=== PATIENT | female | born 1940 | race Caucasian/White ===

== ENCOUNTER → 2016-09-06 | Outpatient (CLI) | payer MEDICARE, OTHER ==
[~2016-09-06] MED LIST: ALBUTEROL; ALBUTEROL2.5 MG/0.5 NEB; AMOXICILLIN500 M1 PO; AMOXICILLIN500 M2 PO; ANTIVERT25 MG PO; ASPIRIN81 M1 PO; B COMPLEX1 CAP PO; BENTYL10 MG PO; CIPRO500 MG PO; COZAAR50 MG PO; ECOTRIN325 MG PO; EXJADE500 MG PO; FLAGYL250 MG PO; GLUCOPHAGE500 MG PO; HUMALOG100 U/ML SC; IMDUR SA60 M1 PO; LEVOFLOXACIN500 MG PO; LIBRAX 5 MG-2.51 CA1 PO; MACROBID100 M1 PO; MAGNESIUM500 MG PO; METFORMIN500 MG PO; METOPROLOL TART50 M1 PO; METOPROLOL25 MG PO; MINITRAN0.4 MG/HR TD; MYCOSTATIN100000 U/M PO; NASONEX0.05 MG/AC NS; NEXIUM20 M1 PO; NITRO TRANS0.2 MG/HR TD; NITRO-BID21 T; NITROGLYCERIN; NITROSTAT0.4 MG SL; NORVASC5 MG PO; PHENERGAN25 M1 PO; PLAVIX75 M1 PO; PLAVIX75 MG PO; POLYSPORIN TP; PREDNISONE2.5 MG PO; PREDNISONE5 MG PO; PRILOSEC20 MG PO; PROAIR HFA0.09 MG/AC INH; PYRIDIUM100 MG PO; SANTYL250 U/GM T; SIMVASTATIN20 MG PO; SYNTHROID,LEV112 MCG PO; TOBRADEX 0.1%-0.5 ML OPH; TOPROL XL25 MG PO; TRAMADOL50 MG PO; TRANSDERM N 0.4 MG/HR TD; TRIAMTERENE/HCT1 TAB PO; ULTRAM50 MG PO; VITAMIN D32000 I1 PO; VITAMIN D5000 IU PO; ZANAFLEX4 M1 PO; ZOCOR20 MG PO
[2016-09-06 09:37] LABS: BASO % 0.7 % (0.0-1.0); EOS # 0.1 10*3/uL (0.0-0.4); EOS % 2.8 % (1.0-4.0); HEMATOCRIT 26.7 % (37.0-47.0); HEMOGLOBIN 8.9 g/dl (12.0-16.0); IG # 0.1 10*3/uL (0.0-0.1); LYMPH # 0.6 10*3/uL (1.3-4.4); LYMPH % 14.1 % (27.0-41.0); MEAN CELL VOLUME 89.3 fl (81.0-99.0); MEAN CORPUSCULAR HGB 29.8 pg (27.0-31.0); MEAN CORPUSCULAR HGB CONC 33.3 g/dl (33.0-37.0); MEAN PLATELET VOLUME 8.7 fl (9.6-12.3); MONO # 0.3 10*3/uL (0.1-1.0); MONO % 6.3 % (3.0-9.0); NEUT # 3.2 10*3/uL (2.3-7.9); NEUT % 74.9 % (47.0-73.0); NUCLEATED RED BLOOD CELL 0.5 % (0.0-0.0); PLATELET COUNT AUTOMATED 138 10*3/uL (130-400); RED BLOOD COUNT 2.99 10*6/uL (4.10-5.10); RED CELL DISTRI WIDTH 16.5 % (0-14.5); WHITE BLOOD COUNT 4.3 10*3/uL (4.8-10.8)
[2016-09-06 09:51] LABS: ALBUMIN 3.6 gm/dl (3.1-4.5); BILIRUBIN, TOTAL 0.8 mg/dl (0.2-1.0); POTASSIUM 4.4 mmol/L (3.5-5.1); TOTAL PROTEIN 6.2 gm/dL (6.4-8.2)
[2016-09-07 15:21] LABS: VITAMIN D, 25-HYDROXY 84.5 ng/mL (30-100)
[2016-09-07 15:22] LABS: FOLIC ACID 15.95 ng/mL (>5.38)
== END | disposition home or self-care (01) ==
LOC: LAB 02:47 → MEDIPORT 02:47
PROVIDERS: Internal Medicine
DX: C50.911 Malignant neoplasm of unspecified site of right female breast (principal); E11.9 Type 2 diabetes mellitus without complications; E78.2 Mixed hyperlipidemia; E03.9 Hypothyroidism, unspecified; D64.9 Anemia, unspecified; E55.9 Vitamin D deficiency, unspecified

== ENCOUNTER → 2016-09-28 | Outpatient (CLI) | payer MEDICARE, OTHER ==
[2016-09-28 12:54] LABS: HEMATOCRIT 31.3 % (37.0-47.0); HEMOGLOBIN 10.5 g/dl (12.0-16.0)
== END | disposition home or self-care (01) ==
LOC: LAB 12:19
PROVIDERS: Internal Medicine
DX: D64.9 Anemia, unspecified (principal)

== ENCOUNTER → 2016-11-17 | Outpatient (CLI) | payer MEDICARE, OTHER | END | disposition home or self-care (01) | LOC: MRI 02:14 | DX: I10 Essential (primary) hypertension (principal); I63.49 Cerebral infarction due to embolism of other cerebral artery; R51 Headache ==

== ENCOUNTER → 2016-12-06 | Outpatient (CLI) | payer MEDICARE, OTHER ==
[2016-12-06 14:35] LABS: HEMATOCRIT 28.1 % (37.0-47.0); HEMOGLOBIN 9.3 g/dl (12.0-16.0)
== END | disposition home or self-care (01) ==
LOC: LAB 13:35
PROVIDERS: Internal Medicine
DX: D64.9 Anemia, unspecified (principal)

== ENCOUNTER → 2016-12-13 | Outpatient (CLI) | payer MEDICARE, OTHER ==
[2016-12-13 11:07] LABS: HEMATOCRIT 31.7 % (37.0-47.0); HEMOGLOBIN 10.5 g/dl (12.0-16.0)
== END | disposition home or self-care (01) ==
LOC: LAB 10:52
PROVIDERS: Internal Medicine
DX: D50.0 Iron deficiency anemia secondary to blood loss (chronic) (principal)

== ENCOUNTER → 2017-01-11 | Outpatient (CLI) | payer MEDICARE, OTHER ==
[2017-01-11 10:15] LABS: HEMATOCRIT 28.9 % (37.0-47.0); HEMOGLOBIN 9.8 g/dl (12.0-16.0)
== END | disposition home or self-care (01) ==
LOC: MEDIPORT 00:58
PROVIDERS: Internal Medicine
DX: Z45.2 Encounter for adjustment and management of vascular access device (principal)

== ENCOUNTER → 2017-03-03 | Outpatient (CLI) | payer MEDICARE, OTHER ==
[2017-03-03 09:00] LABS: HEMOGLOBIN 8.6 g/dl (12.0-16.0)
[2017-03-03 09:07] LABS: POTASSIUM 4.5 mmol/L (3.5-5.1)
== END | disposition home or self-care (01) ==
LOC: MEDIPORT 03-02 10:45 → LAB 08:08 → MEDIPORT 08:30
PROVIDERS: Internal Medicine
DX: N18.3 Chronic kidney disease, stage 3 (moderate) (principal); D63.1 Anemia in chronic kidney disease

== ENCOUNTER → 2017-03-10 | Outpatient (CLI) | payer MEDICARE, OTHER ==
[2017-03-10 11:00] LABS: HEMATOCRIT 25.8 % (37.0-47.0); HEMOGLOBIN 8.9 g/dl (12.0-16.0)
== END | disposition home or self-care (01) ==
LOC: LAB 10:23
PROVIDERS: Internal Medicine
DX: L93.0 Discoid lupus erythematosus (principal); D50.0 Iron deficiency anemia secondary to blood loss (chronic)

== ENCOUNTER 2017-03-30 05:07 | Inpatient (IN) | payer MEDICARE, OTHER ==
[~2017-03-30] VITALS: Ht 154.9 cm; Wt 75.3 kg
[2017-03-30] VITALS (7 sets, daily range): BP systolic 125–171; BP diastolic 42–99
--- NOTE | ~2017-03-30 | PR ---
[place], [place] PROGRESS NOTE NAME: [facility] [id number] UNIT #: [id number] ROOM: 504 DOCTOR: ADEEL BATISTA MD,JORGITO BIRTHDATE: [birth year] DOS: 04/10/2017 SUBJECTIVE: The patient has been noted comfortable at this time without any acute distress. Denies symptoms of chest pain, coughing, sputum expectoration this morning. OBJECTIVE: VITAL SIGNS: Normal temperature, respiratory rate 18, heart rate 56, blood pressure 156/60. Intake 1640, output 2600 mL. The pulse oxygen saturation on room air 98% saturation recorded. HEENT: Examination shows head was atraumatic. Eyes nonicterus. NECK: Supple. CARDIOVASCULAR: S1, S2 audible. LUNGS: Noted without any wheezing or crackles. ABDOMEN: Soft, nontender. IMPRESSION: ____ bacteremia, removal of the MediPort, bacteremia, Staph epidermidis improved. The patient has been given vancomycin since admission 03/30/2017. PLAN OF TREATMENT: The patient could be discharged home at this time after completion of the vancomycin today. She was advised to be followed by her medical oncologist for assessment of pulmonary nodules to have further assessment done if necessary. Supportive care. Other plan of management and care. Usual treatments. JORGITO DENIS MD CM:PNTRANS 1004 1210 JORGITO BATISTA MD 04/10/17 1210 interface
--- NOTE | ~2017-03-30 | PR ---
[place], [place] PROGRESS NOTE NAME: BRANDI LAND UNIT #: [id number] ROOM: 504 DOCTOR: JORGITO WYMAN MD BIRTHDATE: [birth year] DOS: 04/08/2017 PULMONARY FOLLOWUP SUBJECTIVE: She has been noted without any acute distress. At this time the Mediport was successfully removed yesterday from the right chest. The patient denies symptoms of hemoptysis. There was no coughing, wheezing or hemoptysis. OBJECTIVE: VITAL SIGNS: Normal temperature, respiratory rate 20, heart rate 67, blood pressure 153/88. The pulse oxygen saturation was noted on room air 97% saturation. HEENT: Showed no new change. NECK: Supple. CARDIOVASCULAR: S1, S2 audible. LUNGS: Noted without any wheeze or crackles at the present time. ABDOMEN: Soft, nontender. LABORATORY DATA: BMP today was noted as normal. CBC this morning was noted with WBC count 3.7, hemoglobin 9.7, hematocrit 28.9, platelet count 114,000. IMPRESSION: 1. Pancytopenia. The patient noted with resolution of bacteremia Staph epidermidis, status post removal of the MediPort, most likely the source of bacteremia. 2. Resolving bilateral pneumonic infiltration and tree-in-bud appearance with other persistent nodular opacity. The lungs need to be assessed further to rule out any malignant process. 3. Pancytopenia, etiology unclear. PLAN OF MANAGEMENT: Continuation of current therapy at this time. No other changes in the treatment need to be done. Other treatment plan as previously. Usual care. [place], [place] PROGRESS NOTE NAME: BRANDI LAND UNIT #: [id number] ROOM: 504 DOCTOR: JORGITO WYMAN MD BIRTHDATE: [birth year] JORGITO DENIS MD CM:PNTRANS 1424 [id number] JORGITO BATISTA MD 04/10/17 0412 interface
--- NOTE | ~2017-03-30 | O ---
[place], [place] OPERATIVE NOTE NAME: BRANDI LAND UNIT #: [id number] ROOM: 504 DOCTOR: HANS BALTAZAR MD BIRTHDATE: [birth year] DOS: 04/07/2017 PREOPERATIVE DIAGNOSIS: Infected MediPort. POSTOPERATIVE DIAGNOSIS: Infected MediPort. PROCEDURE: Removal of inspected MediPort. SURGEON: Hans Baltazar MD CHOPPER FEEDER: MS3. ANESTHESIA: MAC with local. INDICATIONS: This is a 76-year-old lady who has a MediPort and also has positive blood cultures and removal of the left chest MediPort was requested. It was decided to take the patient to the operating room for the above-mentioned procedure. The procedure and its complications were explained to the patient in detail preoperatively. Complications that were discussed included but were not limited to bleeding, infection, hematoma/seroma/abscess formation, and prolonged pain. She agreed to proceed. DESCRIPTION OF PROCEDURE: After identifying the patient, the patient was brought to the operating suite and laid in the supine position. After time-out procedure was called, IV sedation was administered and the parts were then painted and draped in the usual sterile fashion. An incision across the area of the left chest MediPort was marked and local anesthesia (1% plain lidocaine) was injected. The incision was made and it was then deepened in layers. The MediPort was identified and dissected away from the surrounding subcutaneous tissue. The 2 stay sutures were cut on either side and the port was then removed and sent for histopathological diagnosis. Hemostasis was achieved. Thereafter, the subcutaneous tissue was approximated with the help of 3-0 Vicryl in a running fashion and the skin edges were approximated with the help of 4-0 Vicryl in a subcuticular running fashion. Dressing was placed. The patient tolerated the procedure well. There were no complications. Dr. Hans Baltazar, the attending surgeon was present throughout the operative case. [place], [place] OPERATIVE NOTE NAME: BRANDI LAND UNIT #: [id number] ROOM: 504 DOCTOR: HANS BALTAZAR MD BIRTHDATE: [birth year] Hans Baltazar MD CM:OPRECORD:OPERATIVE NOTE 1040 1142 HANS BALTAZAR MD 04/07/17 1142 interface
--- NOTE | ~2017-03-30 | PR ---
[place], [place] PROGRESS NOTE NAME: BRANDI LAND UNIT #: [id number] ROOM: 504 DOCTOR: JORGITO WYMAN MD BIRTHDATE: [birth year] DOS: 04/06/2017 SUBJECTIVE: The patient was seen and examined on 04/06/2017. She has been comfortable, resting. The shortness of breath and cough continued to improve progressively. She was continued on amoxicillin as well as intravenous vancomycin. Denies symptoms of chest pain or any abdominal pain. OBJECTIVE: VITAL SIGNS: For the patient which were recorded for the patient shows the blood pressure were noted as normal, respiratory rate 18, heart rate 65, blood pressure of ____ 58/64. HEENT: Showed no acute change. NECK: Supple. CARDIOVASCULAR: S1, S2 audible. LUNGS: The patient was noted without any wheezing or crackles at the present time. ABDOMEN: Soft and nontender. LABORATORY DATA: The cultures of the blood on shows no bacterial growth. The chest x-ray that was done this morning was reviewed shows reduction and improvement of the patchy infiltration of the lungs was noted. IMPRESSION: 1. Resolving acute pneumonia. 2. History of pulmonary nodule. 3. Possibility infection MediPort of the patient with bacteremia. 4. 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 PLAN OF TREATMENT: Continue the patient's current therapy, plan of management at this time without any changes. Usual care, other supportive plan of management and treatment. Removal of the MediPort was suggested. Other supportive therapy, plan of management. Further treatment changes will be done based on the progression of the illness. [place], [place] PROGRESS NOTE NAME: BRANDI LAND UNIT #: [id number] ROOM: 504 DOCTOR: JORGITO WYMAN MD BIRTHDATE: [birth year] JORGITO DENIS MD CM:PNTRANS 1341 1408 JORGITO BATISTA MD 04/06/17 1408 interface
--- NOTE | ~2017-03-30 | PR ---
[place], [place] PROGRESS NOTE NAME: BRANDI LAND UNIT #: [id number] ROOM: 504 DOCTOR: JORGITO WYMAN MD BIRTHDATE: [birth year] DOS: 04/03/2017 SUBJECTIVE: She was seen and examined on 04/03/2017. She has been comfortably resting on the bed at this time without any distress. She has been noted with coughing at this time, but there was no sputum expectoration described. Denies symptoms of chest pain or any abdominal pain. OBJECTIVE: VITAL SIGNS: For the patient which has been recorded showed the temperature noted as normal, respiratory rate 18, heart rate 65, blood pressure 114/88. Pulse oxygen saturation on room air was 98% saturation. HEENT: Showed no acute change. CARDIOVASCULAR: S1, S2 audible. LUNGS: Scattered crackles noted bilaterally, there was no wheezing. ABDOMEN: Soft, nontender. LABORATORY DATA: Blood cultures from 03/30/2017, still final identification and sensitivity was pending for Gram-positive cocci in clusters. The final cultures of the patient were on 04/01/2017, one out of four bottles was noted to be positive. The BMP of the patient this morning was essentially noted as normal. CBC this morning, WBC count 3.9, hemoglobin 10.4, and hematocrit 30.1 with platelet count of 108,000. IMPRESSION: 1. The patient has been currently noted with persistent pancytopenia. 2. Hemoptysis, which seemed to be resolved. 3. Acute bacterial pneumonia suspected for the patient with bilateral pulmonary nodules, possibility of metastatic cancer for the patient can be completely excluded. 4. History of past laryngeal cancer. 5. History of metastatic breast cancer as well. PLAN OF MANAGEMENT: I would not be making any changes in treatment today. Continue bronchodilators, oxygen supplementation and sputum culture if expectoration for the patient will be done. Usual care with plan of therapy and care. Further treatment changes will be done based on progression of the illness. [place], [place] PROGRESS NOTE NAME: BRANDI LAND UNIT #: [id number] ROOM: 504 DOCTOR: JORGITO WYMAN MD BIRTHDATE: [birth year] JORGITO DENIS MD CM:MARYSE 1020 1043 JORGITO BATISTA MD 04/03/17 1044 interface
--- NOTE | ~2017-03-30 | PR ---
[place], [place] PROGRESS NOTE NAME: BRANDI LAND UNIT #: [id number] ROOM: 504 DOCTOR: ADEEL BATISTA MD,JORGITO BIRTHDATE: [birth year] DOS: 04/04/2017 PULMONARY PROGRESS NOTE SUBJECTIVE: She has been noted with sputum expectoration, moderate amount, yellowish in color at this time easily. Denies symptoms of chest pain or any abdominal pain. Denies symptoms of hemoptysis. OBJECTIVE: VITAL SIGNS: For the patient which has been recorded showed normal temperature, respiratory rate 20, heart rate 67, blood pressure 90/74. Pulse oxygen saturation on 1 liter nasal cannula 97% saturation. HEENT: Showed no acute change. NECK: Supple. CARDIOVASCULAR: S1, S2 audible. LUNGS: The patient noted with moderate decreased breath sounds with scattered crackles still present in the lungs. There was no wheezing. ABDOMEN: Soft, nontender. LABORATORY DATA: Culture of the sputum preliminary showing normal helen. The Gram stain of yesterday, many white blood cells with moderate epithelial cells, moderate gram-positive cocci in pairs and clusters with few budding yeast. BMP was noted as normal today. Urine for Legionella antigen and strep pneumo antigen were both noted negative. IMPRESSION: 1. The patient with bilateral nodular opacity with patchy infiltration with history of breast cancer in the past as well as laryngeal cancer, increase in the nodule for the patient patchy infiltration was noted since 10/1999. CT scan of the chest with a differential diagnosis of recurrent cancer, possible metastatic from either of the known previous 3 malignancies, the patient would be considered. The patient has been noted to treat melanoma, treatment for the right breast cancer as well as the laryngeal cancer in the past. 2. Acute tracheobronchitis as well. PLAN OF TREATMENT: The current CT scan findings were addressed with the patient in detail. She was advised to be seen by usual medical oncologist in [facility]. The patient already has established followup appointment in May 2017 that should be kept and the findings to be discussed with the medical oncologist for further advice. In the meantime, continue to treatment the patient actively. Monitor culture results. Usual care. Supportive therapy, plan of management and other treatments as well. [place], [place] PROGRESS NOTE NAME: BRANDI LAND UNIT #: [id number] ROOM: 504 DOCTOR: JORGITO WYMAN MD BIRTHDATE: [birth year] JORGITO DENIS MD CM:MARYSE 1028 1050 JORGITO BATISTA MD 04/04/17 1050 interface
--- NOTE | ~2017-03-30 | PR ---
[place], [place] PROGRESS NOTE NAME: BRANDI LAND [facility] #: [id number] UNIT #: [id number] ROOM: 504 DOCTOR: MERY STEWART MD BIRTHDATE: [birth year] DOS: 04/03/2017 SUBJECTIVE: The patient was seen at her bedside today 04/03/2017 for followup of her atherosclerotic heart disease. She is a 76-year-old woman who had been previously followed by the [facility]. She tells me that she has had bypass surgery and several stents placed in the past. She believes she has had 5 heart attacks. Her last catheterization was about 3 years ago and showed that she had a circumflex occlusion. Her last stress test showed ischemia in the lateral wall, which was felt to be limited and fairly low risk. Medical therapy was continued. This study was done on 03/31/2017. She presented to the hospital on this occasion with apparent pneumonia. A CAT scan of her chest shows multiple bilateral nodules and there is a suspicion that she may have metastatic disease. The patient does have a long history of anemia, which is being treated with intermittent transfusions. Her current hospitalization shows evidence for pancytopenia. Her current white count is 3900. On admission, her hemoglobin was 7.5. Her platelet count is 108,000 today, but has been as low as 78,000 on this admission. The patient states that aside from fatigue she does not feel too badly today. She denies any fevers, chills or sweats. She states that her biggest problem is getting someone to give her transfusions when she needs them. PHYSICAL EXAMINATION: VITAL SIGNS: Today, her pulse is 63 and regular. Blood pressure is 170/68, she is afebrile. She weighs 75.3 kilograms with a body mass index of 31.4. HEENT: Normocephalic, atraumatic. Extraocular muscles are intact. Sclerae are clear. NECK: Supple. She has no jugular distention. Carotids are full without bruits. LUNGS: Respirations are unlabored. She has decreased breath sounds at the bases. HEART: Has a regular rhythm with an S4 gallop. EXTREMITIES: Showed trace edema bilaterally. IMPRESSION: 1. Atherosclerotic heart disease. 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 The ischemic burden is felt to be small. Ejection fraction was 81%. 2. Pancytopenia. 3. Pneumonia. 4. Abnormal CAT scan suggesting the possibility of metastatic disease. 5. History of breast cancer. 6. History of laryngeal cancer. PLAN: From a cardiac standpoint, no other workup is being considered. She [place], [place] PROGRESS NOTE NAME: BRANDI LAND UNIT #: [id number] ROOM: 504 DOCTOR: MERY STEWART MD BIRTHDATE: [birth year] should continue guideline directed medical therapy including statin drugs, antiplatelet therapies, beta blockers, angiotensin receptor blockers, aspirin and hydralazine for blood pressure control along with nitroglycerin if needed. Further evaluation of her pulmonary nodules will be deferred to her fire captain and events and promotions assistant/oncologist. We will continue to follow her intermittently in the hospital and I thank the hospitalist physicians for asking our advice regarding her care. MERY STEWART MD CM:PNTRANS 1404 1606 MERY STEWART MD 04/03/17 1606 interface
--- NOTE | ~2017-03-30 | PR ---
[place], [place] PROGRESS NOTE NAME: BRANDI LAND [facility] #: [id number] UNIT #: [id number] ROOM: 504 DOCTOR: ADEEL BATISTA MD,JORGITO BIRTHDATE: [birth year] DOS: 04/02/2017 PULMONARY FOLLOWUP SUBJECTIVE: She has not been noted any further episodes of hemoptysis. A cough has been noted with scant amount of purulent sputum expectoration. She has a CT scan of the chest completed yesterday for assessment of the current pulmonary abnormality. She denies symptoms of shortness of breath at rest. OBJECTIVE: VITAL SIGNS: Low grade fever noted 99.2 degrees Fahrenheit the last 24 hours, respiratory rate 18-20, heart rate of 70-58, blood pressure 166/50 to 158/55. Pulse oxygen saturation of the patient recorded on room air as 98% saturation. HEENT: No acute change. NECK: Supple. CARDIOVASCULAR: S1, S2 audible. LUNGS: Noted without any wheezing or crackles at the present time. Breath sounds noted moderately decreased bilaterally. Occasional crackles are present. ABDOMEN: Soft, nontender. LABORATORY DATA: CBC: WBC count 3.7, hemoglobin 9.5, hematocrit 28.2, platelet count 95,000. The BMP of the patient on 04/02/2017, BUN normal, creatinine was normal. CT scan of the chest that was done yesterday was personally reviewed at this time. It was compared to the CT scan of 10/2016. Bilateral nodular opacities and pulmonary infiltration noted with increase in the size as compared with the previous CT scan of the chest that was done for this patient on 10/2016. IMPRESSION: 1. The patient with acute pneumonia, bilateral pulmonary opacity, possibility of metastatic cancer of the lung would be considered because of the increase in the previous noted opacity. 2. Bacteremia was noted with Gram-positive cocci at this time pending final identification and sensitivity. 3. Hemoptysis secondary to the above, has been resolved. 4. Improved acute injury as well. 5. Pancytopenia. PLAN OF TREATMENT: Continue current antibiotic combination as ongoing. Monitor results of the sputum for Gram stain and culture of the patient. Continue to monitor blood culture results as well. Supportive therapy as a plan of management and treatment. Usual care, other supportive plan of therapies. [place], [place] PROGRESS NOTE NAME: BRANDI LAND UNIT #: [id number] ROOM: 504 DOCTOR: ADEEL BATISTA MD,JORGITO BIRTHDATE: [birth year] JORGITO DENIS MD CM:PNBRIAN 1348 36 JORGITO BATISTA MD 04/02/172237 interface
--- NOTE | ~2017-03-30 | PR ---
[place], [place] PROGRESS NOTE NAME: BRANDI LAND UNIT #: [id number] ROOM: 504 DOCTOR: EMILY BALTAZAR MD BIRTHDATE: [birth year] DOS: 04/01/2017 REASON FOR VISIT: The patient with coronary artery disease and elevated cardiac enzymes. SUBJECTIVE: The patient denies any chest pain. She is still having some abdominal pain and some nausea. No dizziness. No orthopnea. No palpitations. She is lying on the bed comfortably. RHYTHM STRIPS: The patient in sinus rhythm. REVIEW OF SYSTEMS: Review of the 8 systems negative except as mentioned above. PHYSICAL EXAMINATION: VITAL SIGNS: Blood pressure 134/48, pulse 58, respiratory rate 18. GENERAL: Alert, comfortable, in no acute distress. HEENT: Pupils are round and equal. No jaundice. Tongue was moist. NECK: Supple, no distended neck veins, no carotid bruit. CHEST: Symmetrical, nontender. LUNGS: Clear to auscultation. HEART: Regular rhythm. No S3. Grade 1/6 systolic murmur. ABDOMEN: Bowel sounds normal. EXTREMITIES: Showed trace edema. Distal pulses are palpable. SKIN: Warm and dry. No cyanosis, no clubbing. NEUROLOGIC: The patient is alert, oriented. No focal neurologic deficit. RECTAL: Deferred. GENITOURINARY: Deferred. MEDICATIONS AND ALLERGIES: Reviewed. IMPRESSION: 1. Borderline elevation of troponin, no chest pain. 2. Mildly abnormal stress test. 3. Coronary artery disease. 4. Anemia with gastrointestinal bleed. 5. Hypertension. 6. Nausea. RECOMMENDATIONS: 1. Continue current medications. Currently, she is on aspirin, Plavix, beta blockers and ARBs. She was on simvastatin at home. I would resume her simvastatin. 2. She was cleared for upper endoscopy if required. 3. She can be discharged home from a cardiac standpoint once she is okay from the GI and general medical standpoint. 4. She will follow with Dr. Rossi. Above treatment and plan discussed with the patient and her family members and all questions were answered. [place], [place] PROGRESS NOTE NAME: BRANDI LAND UNIT #: [id number] ROOM: 504 DOCTOR: EMILY BALTAZAR MD BIRTHDATE: [birth year] EMILY BALTAZAR MD CM:MARYSE 1525 2200 EMILY BALTAZAR MD 04/02/17 0541 interface
--- NOTE | ~2017-03-30 | PR ---
[place], [place] PROGRESS NOTE NAME: BRANDI LAND [facility] #: [id number] UNIT #: [id number] ROOM: 504 DOCTOR: ADEEL BATISTA MD,JORGITO BIRTHDATE: [birth year] DOS: 04/05/2017 SUBJECTIVE: The patient has been noted comfortable at this time without any distress. Coughing has been subsiding. Denies any symptoms of hemoptysis and chest pain. The patient has been described intermittently in the left side of the chest. The patient reported no acute other complaints at this time. There was no wheezing. OBJECTIVE: VITAL SIGNS: The patient with chest pain recorded. Temperature noted as normal. The respiratory rate recorded as 18, heart rate of 78, blood pressure 164/78. HEENT: Showed no acute change. NECK: Supple. CARDIOVASCULAR: S1, S2 audible. LUNGS: The patient was noted without any wheezing. Occasional crackles of the lungs were noted bilaterally. ABDOMEN: Soft, nontender. LABORATORY DATA: CBC that was done this morning, WBC count 4.0, hemoglobin 8.5, hematocrit 25.0, platelet count 88,000. Blood cultures Staph epidermidis isolated. The BMP of the patient noted with normal BUN and creatinine. Potassium was 3.4. Chloride of 112. IMPRESSION: The patient who has been blood cultured from showed Staph aureus isolation, which are noted sensitive to the erythromycin, clindamycin, tetracycline and others. The followup blood culture was taken, which were pending at this time. The patient with bilateral pulmonary nodules. The patient with possibility of malignant process. The patient's metastasis will be considered Gram-negative bacteremia with Staphylococcus epidermidis. The patient was noted as well with follow surveillance cultures noted positive. PLAN AND MANAGEMENT: Start the patient on oral amoxicillin. She has been noted multiple allergies to medications. Discontinue the meropenem. Might continue the vancomycin at this time. Continue other supportive therapy, plan of management. Usual care. Other supportive plan and management and care. Usual treatment. Follow with the blood culture results, until discontinuation of the other antibiotics. Order another chest x-ray, PA lateral view tomorrow morning to reassess the current progression of the pulmonary nodules. Supportive care therapy, plan and management. She does have a MediPort in place that might need to be removed because of the Staph epidermidis bacteremia. [place], [place] PROGRESS NOTE NAME: BRANDI LAND UNIT #: [id number] ROOM: 504 DOCTOR: JORGITO WYMAN MD BIRTHDATE: [birth year] JORGITO DENIS MD CM:MARYSE 1204 1234 JORGITO BATISTA MD 04/05/17 1234 interface
--- NOTE | ~2017-03-30 | PR ---
[place], [place] PROGRESS NOTE NAME: BRANDI LAND [facility] #: [id number] UNIT #: [id number] ROOM: 504 DOCTOR: MERY STEWART MD BIRTHDATE: [birth year] DOS: 04/09/2017 CARDIOLOGY PROGRESS NOTE SUBJECTIVE: The patient was seen at her bedside with her in attendance today on 04/09/2017 for followup of her atherosclerotic heart disease and chest pain. She is a 76-year-old woman who had been previously followed by the [facility]. She had bypass surgery and several stents placed in the past. She believes she has had a total of 5 heart attacks and she is aware that she has occlusion of the circumflex. Her last stress test showed ischemia in the lateral wall, which was felt to be limited and fairly low risk. Medical therapy has been continued. The most recent stress test was done on 03/31/2017. Her ejection fraction was 81%. She presented to the hospital on this occasion with apparent pneumonia. A CAT scan of the chest shows multiple bilateral nodules with a strong suspicion that this is metastatic disease. The patient does have 3 primary cancers including breast cancer, melanoma, and laryngeal cancer. Any of these could certainly be responsible for her abnormalities, but the patient suspects it is her breast cancer. She does have a long history of anemia, which is being treated with intermittent transfusions. Her current hospitalization does show evidence for pancytopenia. PHYSICAL EXAMINATION: VITAL SIGNS: Today, her pulse is 68 and regular. Blood pressure is 138/60. She is afebrile and weighs 75.3 kilograms with a body mass index of 31.4. NECK: Supple. She has no jugular distention. LUNGS: Respirations are unlabored. She has decreased breath sounds at the bases. HEART: Has a regular rhythm with an S4 gallop. EXTREMITIES: Showed no significant edema. IMPRESSION: 1. Atypical chest pain. 2. Atherosclerotic heart disease. The patient's most recent stress test done on 03/31/2017 showed a partially reversible defect in the anterolateral wall consistent with a small myocardial infarction and albertina-infarction ischemia. The ischemic burden appears to be very small and her ejection fraction is preserved at 81%. 3. Pancytopenia. 4. Pneumonia. 5. Abnormal CAT scan suggesting metastatic disease to the lungs. 6. History of breast cancer, laryngeal cancer and melanoma. PLAN: From a cardiac standpoint, no other workup is indicated. The amount of myocardium at risk is small and should be managed medically. For now, she will continue her statins, antiplatelet therapies, beta blockers and angiotensin receptor blockers along with aspirin and Plavix. She is also being given hydralazine for blood pressure control and nitroglycerin if needed for chest [place], [place] PROGRESS NOTE NAME: BRANDI LAND UNIT #: [id number] ROOM: 504 DOCTOR: TERRY LEHMAN,MERY BIRTHDATE: [birth year] pain. She is currently contemplating what direction she should take for the evaluation of her pulmonary nodules. We will continue to be available to her going forward, and we thank the hospitalist physicians for asking our advice regarding her care. MERY STEWART MD CM:PNTRANS [id number] MERY STEWART MD 04/09/177 interface
--- NOTE | ~2017-03-30 | PR ---
[place], [place] PROGRESS NOTE [id number] UN[facility] #: [id number] ROOM: 504 DOCTOR: ADEEL BATISTA MD,JORGITO BIRTHDATE: [birth year] DOS: 04/09/2017 PULMONARY FOLLOWUP SUBJECTIVE: The patient remains asymptomatic at this time from the pulmonary standpoint, there was no coughing hemoptysis. The chest pain the patient has been noted progressively resolved. OBJECTIVE: VITAL SIGNS: Normal temperature, respiratory rate 18, heart rate 68, blood pressure 138/60. The pulse oxygen saturation on room air was 98% saturation. HEENT: Showed no acute change. NECK: Supple. CARDIOVASCULAR: S1, S2 audible. LUNGS: The patient was noted without any crackles, rhonchi, or wheezing. ABDOMEN: Soft, nontender. LABORATORY DATA: CBC of the patient that was done this morning was noted with a WBC count of 4000, hemoglobin 10.3, hematocrit 30.4, platelet count 126,000. CMP of the patient, BUN 59, creatinine was normal. IMPRESSION: 1. Pancytopenia, which has been noted with gradual improvement. 2. Resolving superimposed pulmonary infiltration pneumonia. 3. History of pulmonary nodules with a history of breast cancer, history of melanoma as well as a history of a past treated epiglottic cancer. 4. Bacteremia with Staphylococcus epidermidis with removal of the MediPort. PLAN OF MANAGEMENT: No changes in plan of therapy, continue antibiotics, bronchodilators and other treatment. Consider possible discharge tomorrow after getting the last course of antibiotics. Bacteremia has been resolved. The source of bacteremia was also cleared up. JORGITO DENIS MD CM:PNTRANS [id number] JORGITO BATISTA MD 04/10/17 0458 interface
--- NOTE | ~2017-03-30 | PR ---
[place], [place] PROGRESS NOTE [facility] [id number] UNIT #: [id number] ROOM: 504 DOCTOR: ADEEL BATISTA MD,JORGITO BIRTHDATE: [birth year] DOS: 04/07/2017 SUBJECTIVE: The patient seen and examined on 04/07/2017. She has been comfortably resting at this time. She was awaiting for the extraction the MediPort because of the bacteremia and Staph epidermidis. She denies symptoms of cough. Chest pain was described in the left chest for the patient, which has been noted with partial reduction. OBJECTIVE: VITAL SIGNS: For the patient, which was recorded showed the temperature noted as normal, respiratory rate 20, heart rate 61, blood pressure noted ____. Pulse oxygen saturation of the patient noted on room air was 97% saturation. HEENT: Showed no acute change. NECK: Supple. CARDIOVASCULAR: S1, S2 audible. LUNGS: The patient was noted without any wheezing or crackles at the present time. ABDOMEN: Soft and nontender. EXTREMITIES: Shows no edema. IMPRESSION: 1. The patient with bacteremia and Staph epidermidis with infection of the MediPort, which will be removed today. 2. Bilateral pulmonary nodules. 3. Resolving superimposed pneumonia for this patient as well. PLAN OF MANAGEMENT: Continue antibiotics, bronchodilator. Proceed with the MediPort removal. Continue other supportive therapy, plan of management, other care and treatment. Usual care, other supportive plan of therapy and care. JORGITO DENIS MD CM:PNBRIAN [id number] JORGITO BATISTA MD 04/07/17 1615 interface
--- NOTE | ~2017-03-30 | ST ---
[place], [place] EXERCISE STRESS TEST REPORT NAME: BRANDI LAND [facility] #: [id number] UNIT #: [id number] ROOM: 504 DOCTOR: GUSTAVO REES MD BIRTHDATE: [birth year] DOS: 03/31/2017 REFERRING PHYSICIAN: Dr. Son. INDICATION: Abnormal troponin and chest pain. The patient underwent standard protocol Lexiscan stress EKG. The patient's baseline EKG is normal sinus rhythm with nonspecific ST-T wave changes. The patient's baseline heart rate is 70 with a blood pressure 144/69. The patient's peak heart rate was 107 with a blood pressure 158/60. The patient's Stress EKG showed [address] depressions in the inferior lateral leads. The patient had some chest pain with stress. The patient had no arrhythmias. SUMMARY OF FINDINGS: 1. The patient has [address] depression in the inferior lateral with some chest pain with peak exercise. 2. Please see separate dictation for perfusion scan results. GUSTAVO REES MD CM:STRESS:EXERCISE STRESS TEST REPORT [id number] GUSTAVO REES MD
--- NOTE | ~2017-03-30 | PR ---
[place], [place] PROGRESS NOTE NAME: BRANDI LAND [facility] #: [id number] UNIT #: [id number] ROOM: 504 DOCTOR: STEVE LUIS MD BIRTHDATE: [birth year] DOS: SUBJECTIVE: The patient is lying completely flat in bed, does not appear in distress. Denies any ongoing cardiac complaints. OBJECTIVE: VITAL SIGNS: Blood pressure 156/60, heart rate 56, respiratory rate of 14, temperature 98.6. NECK: Good upstroke. No JVD. HEART: S1, S2 with holosystolic murmur at left upper sternal border. LUNGS: Decreased air movement, but clear to auscultation. ABDOMEN: Soft, nontender, present bowel sounds. LOWER EXTREMITIES: There is 1-2/4 bilaterally edema. LABORATORY DATA: White count 4.0, hemoglobin 9.5, platelets 124,000. Potassium 4.4. GFR more than 60%. ASSESSMENT AND PLAN: Current presentation of pleuritic chest pain that apparently has improved. The patient has history of coronary artery disease, bypass surgery and previous stents. CT of the chest did confirm the presence of nodules. In regards to cardiac workup, the stress test showed a small area of ischemia, but in the territory of known totally occluded left circumflex. The patient's ejection fraction completely normal, more than 80% with no wall motion abnormalities. Currently, the patient responded well to current medical regimen. My concern is the bilateral lower extremity edema and apparently patient was on Lasix when she was at home. For that I will resume her Lasix 20 mg once a day and we will ____ her potassium to daily BMPs. The patient should be following up with [facility] and if she wishes she will be following with Dr. Mccray within 2-4 weeks in our [facility]. Low salt diet, exercise were emphasized. Any change in pattern of the patient's baseline stable angina was encouraged to report immediately. STEVE LUIS MD CM:PNTRANS [id number] STEVE LUIS MD 04/10/172054 interface
--- NOTE | ~2017-03-30 | CON ---
[place], [place] REPORT OF CONSULTATION NAME: BRANDI LAND [facility] #: [id number] UNIT #: [id number] ROOM: 504 DOCTOR: ADEEL BATISTA MD,JORGITO BIRTHDATE: [birth year] DOS: 04/01/2017 REASON FOR CONSULTATION: To assess the patient for pneumonia and hemoptysis. HISTORY OF PRESENT ILLNESS: A 76-year-old white female who has been admitted to the hospital under the care of hospitalist service on 03/30/2017. She came into the Emergency Room with symptoms of having hemoptysis which occurred with dry heaves and nausea and vomiting intermittently. The patient stated she had expectorated a small amount of blood at home, which has not occurred during this current hospitalization. The blood was contained along with mucus. She was still expectorating sputum, the patient described to be yellowish in color. Denies symptoms of chest pain. The patient rather noted symptoms of left-sided chest pain. The patient stated the pain might be feeling like having previous myocardial infarction kind of pain. The pain has been still noted intermittently in the past couple of days. The patient was noted with symptoms of shortness of breath that occurs with exertion. Denies symptoms of active wheezing. REVIEW OF SYSTEMS: CONSTITUTIONAL SYMPTOMS: Fatigue and tiredness noted without symptoms of fever or chills. EYES: Denies any burning, redness, or tenderness. EARS, NOSE, THROAT SYMPTOMS: No sore throat, hoarseness, otalgia, postnasal drainage or epistaxis. CARDIOVASCULAR: Denies anginal pain, edema, pain of the lower extremities. GASTROINTESTINAL: Dysphagia, nausea, vomiting, diarrhea, abdominal pain, hematemesis, melena, or hematochezia. SKIN: Denies lesions or rashes. GENITOURINARY: Denies dysuria, suprapubic pain, hematuria. MUSCULOSKELETAL: Denies acute joint pain, redness, or tenderness. CENTRAL NERVOUS SYSTEM: No dizziness, headache, diplopia, syncopal episodes. Remaining systems were reviewed with the patient, they were noted all negative. PAST MEDICAL HISTORY: Noted with history of: 1. COPD. 2. Coronary artery disease with several interventions. 3. History of type 2 diabetes mellitus. 4. Past myocardial infarction. 5. Sjogren syndrome. 6. Past stroke with the recovery. 7. Chronic kidney disease stage 3. 8. Type 2 diabetes mellitus. 9. History of lupus. 10. History of past pulmonary nodules. 11. History of right breast cancer, metastatic to different parts of the body pain that has been treated in the past. 12. 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 13. Granulation history. The patient after tracheostomy required dilatation of the trachea. [place], [place] REPORT OF CONSULTATION NAME: BRANDI LAND UNIT #: [id number] ROOM: [facility] DOCTOR: ADEEL BATISTA MD,[facility] BIRTHDATE: [birth year] 14. Degenerative arthritis. 15. History of gastroesophageal reflux and hiatal hernia. 16. History of nephrolithiasis. 17. Hypothyroidism. PAST SURGICAL HISTORY: 1. Cardiac catheterization with coronary artery stents insertion, acute coronary artery bypass grafting. 2. Oophorectomy. 3. Cholecystectomy. 4. Complete hysterectomy. 5. Radical neck dissection many years ago with history of epiglottis cancer. 6. Tracheostomy decannulation. 7. Dilatation of the tracheostomy post-tracheal stenosis from the tracheostomy granulated tissue. 8. Cervical fusion. 9. T and A. 10. Right breast mastectomy with axillary lymph node dissection. 11. MediPort insertion. SOCIAL HISTORY: The patient is , has 4 children lived at home. She has smoked cigarettes only for a short period of time; when she was young. Denies history of alcohol use or illicit drug use or any occupation related pulmonary exposure. FAMILY HISTORY: The mother at the age of 9494 years old from old age. Father at age of 8484 years old, complication most likely from mesothelioma as per patient. HOME MEDICATIONS: Listed use of aspirin, vitamin D, Plavix, Bentyl, Nexium, hydralazine, losartan, Synthroid, metformin, Toprol-XL, Nitrostat, minitran, prednisone 2 mg daily and simvastatin 20 mg daily. DRUG ALLERGIES: 1. REPORTED SEVERAL ALLERGIES THAT INCLUDE ALLERGY TO SULFA DRUGS. 2. KEFLEX. 3. CIPROFLOXACIN. 4. CODEINE. 5. DOXYCYCLINE. 6. GATIFLOXACIN. 7. MORPHINE. 8. OXYCODONE. 9. RANEXA. 10. BIAXIN. 11. FLUOROQUINOLONES. 12. ZOFRAN. 13. TYLENOL. 14. CEFTAZIDIME. 15. REGLAN. 16. PRAVASTATIN. [place], [place] REPORT OF CONSULTATION [id number] [facility] #: [id number] ROOM: [facility] DOCTOR: JORGITO WYMAN MD BIRTHDATE: [birth year] 17. VALSARTAN. PHYSICAL EXAMINATION: GENERAL: This is a 76-year-old white female who has been currently noted as awake and alert without any distress. Height of 5 feet 1 inch, weight of 166 pounds, BMI 31.3. VITAL SIGNS: Shows temperature noted 98.3. The respiratory rate of the patient recorded as 18-20, heart rate 67-62, blood pressure 134/48-152/55. Pulse oxygen saturation of the patient on 2 liters nasal cannula 100% saturation. HEENT: Examination shows head was atraumatic. Eyes nonicterus. NECK: Supple. CARDIOVASCULAR: S1, S2 audible. LUNGS: The patient was noted with [id number] decreased breath sounds without any wheeze or crackles at this time. ABDOMEN: Soft, nontender, bowel sounds present. EXTREMITIES: Show no edema, clubbing or cyanosis. LABORATORY DATA: CMP of the patient on 03/30/2017 on admission, BUN 26, creatinine 1.41, glucose 125, remaining electrolytes normal. PT/PTT of patient on 03/30/2017 was normal on admission. CBC on admission 03/30/2017, WBC count 6.2, hemoglobin 10, hematocrit 29.3, platelet count was normal. CT scan of the head that was also done in the Emergency Room for the patient for the assessment of headache with nausea, vomiting was described as finding of no intracranial pathologies, chronic small vessel ischemic changes were noted. The troponin noted mildly elevated at 0.205, on admission ON 03/30/2017. The CBC of this morning, hemoglobin 10.6, hematocrit 31, platelet count normal, WBC count, normal. Blood culture from 03/30/2017 one bottle showed gram-positive cocci in pairs and clusters. CMP this morning, BUN 17, creatinine 1.16. The bilirubin was noted at 1.7. Second set of blood culture was also noted abnormal growth of gram-positive cocci in clusters. The finding of the radiology data for this patient, which has been personally reviewed for the patient related to the lung. The chest x-ray of the patient that was done on 03/30/2017 shows infiltration noted large amount in the right lung. The left lung appears to be clear. MediPort noted in place in the left side of the chest as well, sternotomy, marked rather changes patient with male voice was noted. Pin was also was also rotated somewhat towards the right as well. A CT scan of the chest was done in 10/12/2016, was described as a finding of patchy ground glass opacity with severe appearance in the lungs bilaterally. IMPRESSION: 1. The patient has been currently admitted to the hospital with hemoptysis, most likely related to current acute pneumonia noted accompanying the right lung with Gram-positive cocci bacteremia for this patient as well. Possibility of MRSA would be considered with the Staph aureus, also in the differential diagnosis. A very complex issue was that the patient is noted with allergies to most of the known antibiotics in the past for this patient with one or other kind of allergic reaction described. The patient is currently getting meropenem and vancomycin, does not show any allergic reaction. [place], [place] REPORT OF CONSULTATION NAME: BRANDI LAND UNIT #: [id number] ROOM: 504 DOCTOR: JORGITO WYMAN MD BIRTHDATE: [birth year] 2. History of Sjogren syndrome. 3. History of past known cancer of the larynx as well as breast which has been treated in the past. 4. History of pulmonary nodule, which were noted a couple of millimeters nodules in the past. 5. History of short term only low tobacco use by the patient in the past as well with questionable history of chronic obstructive pulmonary disease as well. 5. History of Sjogren's syndrome and systemic lupus erythematosus as well as hypothyroidism and type 2 diabetes mellitus. PLAN OF TREATMENT: I will order the sputum for Gram stain and culture for this patient, which has not been ordered. Monitor culture results. The CT scan of the chest will be beneficial to exactly assess the ongoing problem without contrast, at this time, will be ordered. Other supportive therapy, plan and management as well. Further treatment changes will be done based on the progression of the illness. There has not been any further episodes of hemoptysis in the patient noted at the present time and it will be monitored closely if necessary, or hemoptysis is worsening or to obtain accurate culture results from the lung for this patient, bronchoscopy will be suggested at that time. All other supportive plan of management. Usual care. Make further treatment changes for the patient based on the progression of the illness. Thanks for allowing me to participate in the care of this patient. JORGITO DENIS MD CM:CONSTR:REPORT OF CONSULTATION 1454 04/01/17 1717 interface
[2017-03-30 05:26] LABS: BASO % 0.5 % (0.0-1.0); EOS # 0.1 10*3/uL (0.0-0.4); EOS % 2.1 % (1.0-4.0); HEMATOCRIT 29.3 % (37.0-47.0); LYMPH # 0.5 10*3/uL (1.3-4.4); LYMPH % 7.6 % (27.0-41.0); MEAN CELL VOLUME 89.9 fl (81.0-99.0); MEAN CORPUSCULAR HGB 30.7 pg (27.0-31.0); MEAN CORPUSCULAR HGB CONC 34.1 g/dl (33.0-37.0); MEAN PLATELET VOLUME 8.5 fl (9.6-12.3); MONO # 0.3 10*3/uL (0.1-1.0); MONO % 4.8 % (3.0-9.0); NEUT # 5.2 10*3/uL (2.3-7.9); NEUT % 84.4 % (47.0-73.0); PLATELET COUNT AUTOMATED 109 10*3/uL (130-400); RED BLOOD COUNT 3.26 10*6/uL (4.10-5.10); RED CELL DISTRI WIDTH 16.1 % (0-14.5); WHITE BLOOD COUNT 6.2 10*3/uL (4.8-10.8)
[2017-03-30 05:39] LABS: PROTHROMBIN TIME 10.4 SECONDS (9.0-12.4)
[2017-03-30 05:44] LABS: ALBUMIN 3.8 gm/dl (3.1-4.5); BILIRUBIN, TOTAL 0.8 mg/dl (0.2-1.0); MAGNESIUM 1.5 mg/dL (1.5-2.1); POTASSIUM 4.5 mmol/L (3.5-5.1); TOTAL PROTEIN 6.6 gm/dL (6.4-8.2)
[2017-03-30 05:45] LABS: TROPONIN I 0.022 ng/ml (<0.045)
[2017-03-30 08:44] LABS: HEMOGLOBIN A1c 4.7 % (4.8-5.6)
[2017-03-30 08:57] LABS: FREE T4 1.4 ng/dl (0.76-1.46); PHOSPHOROUS 2.3 mg/dL (2.5-4.9)
[2017-03-30 09:01] LABS: THYROID STIM HORMONE (HS) 0.48 uIU/ml (0.358-4.75)
[2017-03-30] MEDS ORDERED: APRESOLINE25 MG PO (09:43)
[2017-03-30] MEDS ORDERED: LASIX20 MG PO (17:59)
[2017-03-30] MEDS ORDERED: K-TAB10 MEQ PO (18:00)
[2017-03-30 18:37] LABS: CKMB 0.5 ng/ml (0.5-3.6)
[2017-03-30 18:39] LABS: TROPONIN I 0.16 ng/ml (<0.045)
[2017-03-31] VITALS (14 sets, daily range): BP systolic 128–188; BP diastolic 50–71
[2017-03-31 06:31] LABS: BASO % 0.5 % (0.0-1.0); EOS # 0.1 10*3/uL (0.0-0.4); EOS % 1.9 % (1.0-4.0); LYMPH # 0.7 10*3/uL (1.3-4.4); LYMPH % 19.4 % (27.0-41.0); MEAN CELL VOLUME 91.8 fl (81.0-99.0); MEAN CORPUSCULAR HGB 30.6 pg (27.0-31.0); MEAN CORPUSCULAR HGB CONC 33.3 g/dl (33.0-37.0); MEAN PLATELET VOLUME 9.4 fl (9.6-12.3); MONO # 0.3 10*3/uL (0.1-1.0); MONO % 7.3 % (3.0-9.0); NEUT # 2.6 10*3/uL (2.3-7.9); NEUT % 70.6 % (47.0-73.0); PLATELET COUNT AUTOMATED 95 10*3/uL (130-400); RED BLOOD COUNT 2.45 10*6/uL (4.10-5.10); RED CELL DISTRI WIDTH 16.3 % (0-14.5); WHITE BLOOD COUNT 3.7 10*3/uL (4.8-10.8)
[2017-03-31 06:33] LABS: HEMATOCRIT 22.5 % (37.0-47.0); HEMOGLOBIN 7.5 g/dl (12.0-16.0)
[2017-03-31 06:40] LABS: MAGNESIUM 1.6 mg/dL (1.5-2.1); POTASSIUM 4.1 mmol/L (3.5-5.1)
[2017-03-31 23:30] LABS: BASO % 0.3 % (0.0-1.0); EOS # 0.2 10*3/uL (0.0-0.4); EOS % 2.5 % (1.0-4.0); IG # 0.1 10*3/uL (0.0-0.1); LYMPH # 0.7 10*3/uL (1.3-4.4); LYMPH % 11.5 % (27.0-41.0); MEAN CELL VOLUME 89.8 fl (81.0-99.0); MEAN CORPUSCULAR HGB 31.6 pg (27.0-31.0); MEAN CORPUSCULAR HGB CONC 35.2 g/dl (33.0-37.0); MEAN PLATELET VOLUME 9.6 fl (9.6-12.3); MONO # 0.4 10*3/uL (0.1-1.0); MONO % 6.5 % (3.0-9.0); NEUT # 4.7 10*3/uL (2.3-7.9); NEUT % 78.4 % (47.0-73.0); PLATELET COUNT AUTOMATED 78 10*3/uL (130-400); RED BLOOD COUNT 3.54 10*6/uL (4.10-5.10); RED CELL DISTRI WIDTH 15.4 % (0-14.5)
[2017-03-31 23:31] LABS: HEMATOCRIT 31.8 % (37.0-47.0); HEMOGLOBIN 11.2 g/dl (12.0-16.0)
[2017-03-31 23:55] LABS: BASOPHIL # 0.1 10*3/uL (0-0.1); BASOPHILS 1 % (0-1); BURR CELLS FEW; EOSINOPHIL # 0.1 10*3/uL (0-0.4); EOSINOPHILS 2 % (1-4); LYMPHOCYTE # 0.7 10*3/uL (1.3-4.4); NEUTROPHIL # 5.2 10*3/uL (2.3-7.9); NEUTROPHILS 86 % (47-73); PLATELET SUFFICIENCY LOW (NORMAL); TOTAL CELLS COUNTED 100 #CELLS
[2017-04-01] VITALS: BP 154/64
[2017-04-01 06:12] LABS: BASO % 0.6 % (0.0-1.0); EOS # 0.2 10*3/uL (0.0-0.4); EOS % 3.6 % (1.0-4.0); HEMOGLOBIN 10.6 g/dl (12.0-16.0); LYMPH # 0.7 10*3/uL (1.3-4.4); LYMPH % 13.7 % (27.0-41.0); MEAN CELL VOLUME 91.4 fl (81.0-99.0); MEAN CORPUSCULAR HGB 31.3 pg (27.0-31.0); MEAN CORPUSCULAR HGB CONC 34.2 g/dl (33.0-37.0); MONO # 0.3 10*3/uL (0.1-1.0); MONO % 6.1 % (3.0-9.0); NEUT % 75.6 % (47.0-73.0); PLATELET COUNT AUTOMATED 97 10*3/uL (130-400); RED BLOOD COUNT 3.39 10*6/uL (4.10-5.10); RED CELL DISTRI WIDTH 15.6 % (0-14.5); WHITE BLOOD COUNT 5.2 10*3/uL (4.8-10.8)
[2017-04-01 06:28] LABS: ALBUMIN 3.2 gm/dl (3.1-4.5); BILIRUBIN, TOTAL 1.7 mg/dl (0.2-1.0); POTASSIUM 3.9 mmol/L (3.5-5.1); TOTAL PROTEIN 6.1 gm/dL (6.4-8.2)
[2017-04-01 08:00] VITALS: BP 157/62
[2017-04-01 12:00] VITALS: BP 134/48
[2017-04-01 16:00] VITALS: BP 152/57
[2017-04-01 20:00] VITALS: BP 159/47
[2017-04-02] VITALS: BP 146/54
[2017-04-02 06:30] LABS: BASO % 0.8 % (0.0-1.0); EOS # 0.2 10*3/uL (0.0-0.4); EOS % 5.6 % (1.0-4.0); HEMATOCRIT 28.2 % (37.0-47.0); HEMOGLOBIN 9.5 g/dl (12.0-16.0); LYMPH # 0.7 10*3/uL (1.3-4.4); LYMPH % 17.6 % (27.0-41.0); MEAN CELL VOLUME 92.8 fl (81.0-99.0); MEAN CORPUSCULAR HGB 31.3 pg (27.0-31.0); MEAN CORPUSCULAR HGB CONC 33.7 g/dl (33.0-37.0); MEAN PLATELET VOLUME 9.2 fl (9.6-12.3); MONO # 0.3 10*3/uL (0.1-1.0); MONO % 7.5 % (3.0-9.0); NEUT # 2.5 10*3/uL (2.3-7.9); NEUT % 67.7 % (47.0-73.0); PLATELET COUNT AUTOMATED 95 10*3/uL (130-400); RED BLOOD COUNT 3.04 10*6/uL (4.10-5.10); RED CELL DISTRI WIDTH 15.7 % (0-14.5); WHITE BLOOD COUNT 3.7 10*3/uL (4.8-10.8)
[2017-04-02 06:58] LABS: BUN 16 mg/dl (7-24); CARBON DIOXIDE 25 mmol/L (21-32); CHLORIDE 106 mmol/L (98-107); EST GLOM FILT AFRICAN AMERICAN > 60 ml/min; GLUCOSE 113 mg/dL (65-99); POTASSIUM 3.9 mmol/L (3.5-5.1); SODIUM 138 mmol/L (136-145)
[2017-04-02 08:00] VITALS: BP 158/55
[2017-04-02 12:00] VITALS: BP 166/52
[2017-04-02 16:00] VITALS: BP 160/80
[2017-04-02 20:00] VITALS: BP 160/78
[2017-04-03] VITALS: BP 124/41
[2017-04-03 06:43] LABS: BASO % 0.8 % (0.0-1.0); EOS # 0.2 10*3/uL (0.0-0.4); EOS % 4.9 % (1.0-4.0); HEMATOCRIT 30.1 % (37.0-47.0); HEMOGLOBIN 10.4 g/dl (12.0-16.0); LYMPH # 0.5 10*3/uL (1.3-4.4); LYMPH % 11.5 % (27.0-41.0); MEAN CELL VOLUME 91.5 fl (81.0-99.0); MEAN CORPUSCULAR HGB 31.6 pg (27.0-31.0); MEAN CORPUSCULAR HGB CONC 34.6 g/dl (33.0-37.0); MEAN PLATELET VOLUME 8.9 fl (9.6-12.3); MONO # 0.3 10*3/uL (0.1-1.0); MONO % 8.7 % (3.0-9.0); NEUT # 2.9 10*3/uL (2.3-7.9); NEUT % 73.3 % (47.0-73.0); PLATELET COUNT AUTOMATED 108 10*3/uL (130-400); RED BLOOD COUNT 3.29 10*6/uL (4.10-5.10); RED CELL DISTRI WIDTH 15.6 % (0-14.5); WHITE BLOOD COUNT 3.9 10*3/uL (4.8-10.8)
[2017-04-03 07:03] LABS: BUN 13 mg/dl (7-24); CARBON DIOXIDE 24 mmol/L (21-32); CHLORIDE 107 mmol/L (98-107); EST GLOM FILT AFRICAN AMERICAN > 60 ml/min; GLUCOSE 119 mg/dL (65-99); POTASSIUM 3.9 mmol/L (3.5-5.1); SODIUM 139 mmol/L (136-145)
[2017-04-03 08:00] VITALS: BP 114/88
[2017-04-03 12:00] VITALS: BP 170/68
[2017-04-03 15:09] LABS: LEGIONELLA URINARY ANTIGEN Negative (Negative); ORGANISM ID Not indicated. (.); SPECIMEN SOURCE Urine (.); STREPTOCOCCUS PNEUMONIAE AG Negative (Negative)
[2017-04-03 16:00] VITALS: BP 172/64
[2017-04-03 20:00] VITALS: BP 183/78
[2017-04-03 21:00] VITALS: BP 166/74
[2017-04-04] VITALS: BP 144/43
[2017-04-04 07:03] LABS: BASO # 0.1 10*3/uL (0.0-0.1); EOS # 0.2 10*3/uL (0.0-0.4); EOS % 4.6 % (1.0-4.0); HEMATOCRIT 31.1 % (37.0-47.0); HEMOGLOBIN 10.4 g/dl (12.0-16.0); LYMPH # 0.6 10*3/uL (1.3-4.4); LYMPH % 11.6 % (27.0-41.0); MEAN CELL VOLUME 91.5 fl (81.0-99.0); MEAN CORPUSCULAR HGB 30.6 pg (27.0-31.0); MEAN CORPUSCULAR HGB CONC 33.4 g/dl (33.0-37.0); MEAN PLATELET VOLUME 8.7 fl (9.6-12.3); MONO # 0.4 10*3/uL (0.1-1.0); MONO % 7.2 % (3.0-9.0); NEUT # 3.7 10*3/uL (2.3-7.9); NEUT % 74.8 % (47.0-73.0); PLATELET COUNT AUTOMATED 114 10*3/uL (130-400); RED CELL DISTRI WIDTH 15.7 % (0-14.5)
[2017-04-04 07:38] LABS: BUN 12 mg/dl (7-24); CARBON DIOXIDE 26 mmol/L (21-32); CHLORIDE 105 mmol/L (98-107); EST GLOM FILT AFRICAN AMERICAN > 60 ml/min; GLUCOSE 102 mg/dL (65-99); SODIUM 138 mmol/L (136-145)
[2017-04-04 08:00] VITALS: BP 142/78; BP 93/74
[2017-04-04 12:00] VITALS: BP 185/59
[2017-04-04 16:00] VITALS: BP 172/74
[2017-04-04 20:00] VITALS: BP 160/65
[2017-04-05] VITALS: BP 140/65
[2017-04-05 04:00] VITALS: BP 142/62
[2017-04-05 06:55] LABS: BASO % 0.8 % (0.0-1.0); BUN 11 mg/dl (7-24); CARBON DIOXIDE 22 mmol/L (21-32); CHLORIDE 112 mmol/L (98-107); EOS # 0.2 10*3/uL (0.0-0.4); EOS % 4.1 % (1.0-4.0); EST GLOM FILT AFRICAN AMERICAN > 60 ml/min; GLUCOSE 85 mg/dL (65-99); HEMOGLOBIN 8.5 g/dl (12.0-16.0); LYMPH # 0.5 10*3/uL (1.3-4.4); LYMPH % 12.2 % (27.0-41.0); MEAN CELL VOLUME 92.6 fl (81.0-99.0); MEAN CORPUSCULAR HGB 31.5 pg (27.0-31.0); MEAN PLATELET VOLUME 8.8 fl (9.6-12.3); MONO # 0.3 10*3/uL (0.1-1.0); MONO % 7.3 % (3.0-9.0); NEUT % 74.6 % (47.0-73.0); PLATELET COUNT AUTOMATED 88 10*3/uL (130-400); POTASSIUM 3.4 mmol/L (3.5-5.1); RED CELL DISTRI WIDTH 15.8 % (0-14.5); SODIUM 141 mmol/L (136-145)
[2017-04-05 08:00] VITALS: BP 164/78
[2017-04-05 12:00] VITALS: BP 158/85
[2017-04-05 16:00] VITALS: BP 138/62
[2017-04-05 20:00] VITALS: BP 124/72
[2017-04-06] VITALS: BP 154/64; BP 99/54
[2017-04-06 07:49] LABS: BASO % 0.8 % (0.0-1.0); EOS # 0.2 10*3/uL (0.0-0.4); EOS % 4.7 % (1.0-4.0); IG # 0.1 10*3/uL (0.0-0.1); LYMPH # 0.7 10*3/uL (1.3-4.4); LYMPH % 13.2 % (27.0-41.0); MEAN CELL VOLUME 90.2 fl (81.0-99.0); MEAN CORPUSCULAR HGB 31.3 pg (27.0-31.0); MEAN CORPUSCULAR HGB CONC 34.7 g/dl (33.0-37.0); MEAN PLATELET VOLUME 8.4 fl (9.6-12.3); MONO # 0.4 10*3/uL (0.1-1.0); MONO % 7.3 % (3.0-9.0); NEUT # 3.7 10*3/uL (2.3-7.9); RED BLOOD COUNT 3.48 10*6/uL (4.10-5.10); RED CELL DISTRI WIDTH 15.4 % (0-14.5); WHITE BLOOD COUNT 5.1 10*3/uL (4.8-10.8)
[2017-04-06 07:52] LABS: HEMATOCRIT 31.4 % (37.0-47.0); PLATELET COUNT AUTOMATED 122 10*3/uL (130-400)
[2017-04-06 07:54] LABS: HEMOGLOBIN 10.9 g/dl (12.0-16.0)
[2017-04-06 08:00] VITALS: BP 158/64
[2017-04-06 08:01] LABS: ALBUMIN 3.5 gm/dl (3.1-4.5); ALKALINE PHOSPHATASE 130 U/L (45-117); BILIRUBIN, TOTAL 0.8 mg/dl (0.2-1.0); BUN 18 mg/dl (7-24); CARBON DIOXIDE 28 mmol/L (21-32); CHLORIDE 101 mmol/L (98-107); EST GLOM FILT AFRICAN AMERICAN > 60 ml/min; GLUCOSE 119 mg/dL (65-99); POTASSIUM 4.3 mmol/L (3.5-5.1); SGOT/AST 26 IU/L (3-35); SGPT/ALT 38 U/L (12-78); SODIUM 136 mmol/L (136-145); TOTAL PROTEIN 6.3 gm/dL (6.4-8.2)
[2017-04-06 12:00] VITALS: BP 164/64
[2017-04-06 16:00] VITALS: BP 136/68
[2017-04-06 20:00] VITALS: BP 124/68
[2017-04-07] VITALS (9 sets, daily range): BP systolic 104–168; BP diastolic 37–80
[2017-04-07 07:17] LABS: BASO % 0.9 % (0.0-1.0); EOS # 0.2 10*3/uL (0.0-0.4); EOS % 4.6 % (1.0-4.0); HEMATOCRIT 29.2 % (37.0-47.0); HEMOGLOBIN 10.1 g/dl (12.0-16.0); IG # 0.1 10*3/uL (0.0-0.1); LYMPH # 0.7 10*3/uL (1.3-4.4); LYMPH % 16.9 % (27.0-41.0); MEAN CELL VOLUME 88.8 fl (81.0-99.0); MEAN CORPUSCULAR HGB 30.7 pg (27.0-31.0); MEAN CORPUSCULAR HGB CONC 34.6 g/dl (33.0-37.0); MEAN PLATELET VOLUME 9.3 fl (9.6-12.3); MONO # 0.3 10*3/uL (0.1-1.0); MONO % 7.3 % (3.0-9.0); NEUT % 68.5 % (47.0-73.0); PLATELET COUNT AUTOMATED 121 10*3/uL (130-400); RED BLOOD COUNT 3.29 10*6/uL (4.10-5.10); RED CELL DISTRI WIDTH 15.5 % (0-14.5); WHITE BLOOD COUNT 4.4 10*3/uL (4.8-10.8)
[2017-04-07 07:32] LABS: BUN 18 mg/dl (7-24); CARBON DIOXIDE 27 mmol/L (21-32); CHLORIDE 102 mmol/L (98-107); EST GLOM FILT AFRICAN AMERICAN > 60 ml/min; GLUCOSE 121 mg/dL (65-99); POTASSIUM 4.2 mmol/L (3.5-5.1); SODIUM 137 mmol/L (136-145)
[2017-04-08] VITALS: BP 157/79
[2017-04-08 07:13] LABS: BASO % 1.1 % (0.0-1.0); EOS # 0.2 10*3/uL (0.0-0.4); EOS % 5.1 % (1.0-4.0); HEMATOCRIT 28.9 % (37.0-47.0); HEMOGLOBIN 9.7 g/dl (12.0-16.0); LYMPH # 0.6 10*3/uL (1.3-4.4); MEAN CELL VOLUME 91.2 fl (81.0-99.0); MEAN CORPUSCULAR HGB 30.6 pg (27.0-31.0); MEAN CORPUSCULAR HGB CONC 33.6 g/dl (33.0-37.0); MEAN PLATELET VOLUME 8.4 fl (9.6-12.3); MONO # 0.3 10*3/uL (0.1-1.0); MONO % 7.5 % (3.0-9.0); NEUT # 2.5 10*3/uL (2.3-7.9); NEUT % 68.2 % (47.0-73.0); PLATELET COUNT AUTOMATED 114 10*3/uL (130-400); RED BLOOD COUNT 3.17 10*6/uL (4.10-5.10); RED CELL DISTRI WIDTH 15.8 % (0-14.5); WHITE BLOOD COUNT 3.7 10*3/uL (4.8-10.8)
[2017-04-08 07:41] LABS: BUN 19 mg/dl (7-24); CARBON DIOXIDE 28 mmol/L (21-32); CHLORIDE 103 mmol/L (98-107); EST GLOM FILT AFRICAN AMERICAN > 60 ml/min; GLUCOSE 103 mg/dL (65-99); POTASSIUM 4.2 mmol/L (3.5-5.1); SODIUM 138 mmol/L (136-145)
[2017-04-08 08:00] VITALS: BP 153/88
[2017-04-08 16:00] VITALS: BP 177/71
[2017-04-08 20:00] VITALS: BP 176/64
[2017-04-08 22:11] VITALS: BP 140/84
[2017-04-09] VITALS: BP 147/56
[2017-04-09 06:18] LABS: BASO # 0.1 10*3/uL (0.0-0.1); BASO % 1.3 % (0.0-1.0); EOS # 0.2 10*3/uL (0.0-0.4); EOS % 5.3 % (1.0-4.0); HEMATOCRIT 30.4 % (37.0-47.0); HEMOGLOBIN 10.3 g/dl (12.0-16.0); LYMPH # 0.7 10*3/uL (1.3-4.4); LYMPH % 17.8 % (27.0-41.0); MEAN CORPUSCULAR HGB 30.8 pg (27.0-31.0); MEAN CORPUSCULAR HGB CONC 33.9 g/dl (33.0-37.0); MEAN PLATELET VOLUME 8.7 fl (9.6-12.3); MONO # 0.3 10*3/uL (0.1-1.0); MONO % 7.3 % (3.0-9.0); NEUT # 2.7 10*3/uL (2.3-7.9); NEUT % 67.3 % (47.0-73.0); PLATELET COUNT AUTOMATED 126 10*3/uL (130-400); RED BLOOD COUNT 3.34 10*6/uL (4.10-5.10); RED CELL DISTRI WIDTH 15.6 % (0-14.5)
[2017-04-09 06:26] LABS: ALBUMIN 3.6 gm/dl (3.1-4.5); ALKALINE PHOSPHATASE 116 U/L (45-117); BILIRUBIN, TOTAL 0.9 mg/dl (0.2-1.0); BUN 15 mg/dl (7-24); CARBON DIOXIDE 30 mmol/L (21-32); CHLORIDE 102 mmol/L (98-107); EST GLOM FILT AFRICAN AMERICAN > 60 ml/min; GLUCOSE 107 mg/dL (65-99); POTASSIUM 4.4 mmol/L (3.5-5.1); SGOT/AST 16 IU/L (3-35); SGPT/ALT 28 U/L (12-78); SODIUM 137 mmol/L (136-145); TOTAL PROTEIN 6.3 gm/dL (6.4-8.2)
[2017-04-09 08:00] VITALS: BP 168/78
[2017-04-09 12:00] VITALS: BP 138/60
[2017-04-09 16:00] VITALS: BP 156/74
[2017-04-09 20:00] VITALS: BP 180/78
[2017-04-10] VITALS: BP 126/72
[2017-04-10 05:59] LABS: BASO # 0.1 10*3/uL (0.0-0.1); BASO % 1.2 % (0.0-1.0); EOS # 0.2 10*3/uL (0.0-0.4); EOS % 5.5 % (1.0-4.0); HEMATOCRIT 28.2 % (37.0-47.0); HEMOGLOBIN 9.5 g/dl (12.0-16.0); LYMPH # 0.6 10*3/uL (1.3-4.4); LYMPH % 15.7 % (27.0-41.0); MEAN CELL VOLUME 91.3 fl (81.0-99.0); MEAN CORPUSCULAR HGB 30.7 pg (27.0-31.0); MEAN CORPUSCULAR HGB CONC 33.7 g/dl (33.0-37.0); MEAN PLATELET VOLUME 8.9 fl (9.6-12.3); MONO # 0.3 10*3/uL (0.1-1.0); MONO % 8.5 % (3.0-9.0); NEUT # 2.8 10*3/uL (2.3-7.9); NEUT % 68.4 % (47.0-73.0); PLATELET COUNT AUTOMATED 124 10*3/uL (130-400); RED BLOOD COUNT 3.09 10*6/uL (4.10-5.10); RED CELL DISTRI WIDTH 15.8 % (0-14.5)
[2017-04-10 08:00] VITALS: BP 156/60
[2017-04-10] MEDS ORDERED: TOPROL XL50 M1 PO (13:51)
== END 2017-04-10 14:15 | disposition home or self-care (01) | DRG 314 ==
LOC: ED 05:07 → 5E 06:26 → EDHOLD 06:26 → 5E 07:29
PROVIDERS: Emergency Medicine Emergency Medical Services; Family Medicine; Hospitalist; Internal Medicine; Internal Medicine Hospice and Palliative Medicine; Internal Medicine Nephrology
PROC: 4A02XM4 Measurement of Cardiac Total Activity, External Approach (ICD-10-PCS; principal; 2017-03-31)
PROC: 30233N1 Transfusion of Nonautologous Red Blood Cells into Peripheral Vein, Percutaneous Approach (ICD-10-PCS; principal; 2017-03-31)
PROC: 3E073KZ Introduction of Other Diagnostic Substance into Coronary Artery, Percutaneous Approach (ICD-10-PCS; principal; 2017-03-31)
PROC: 0JPT0XZ Removal of Tunneled Vascular Access Device from Trunk Subcutaneous Tissue and Fascia, Open Approach (ICD-10-PCS; 2017-04-07)
DX: T80.211A Bloodstream infection due to central venous catheter, initial encounter (principal); A41.89 Other specified sepsis; N17.0 Acute kidney failure with tubular necrosis; J15.6 Pneumonia due to other Gram-negative bacteria; D61.818 Other pancytopenia; E11.22 Type 2 diabetes mellitus with diabetic chronic kidney disease; I13.0 Hypertensive heart and chronic kidney disease with heart failure and stage 1 through stage 4 chronic kidney disease, or unspecified chronic kidney disease; M35.00 Sjogren syndrome, unspecified; E11.65 Type 2 diabetes mellitus with hyperglycemia; I50.9 Heart failure, unspecified; K92.2 Gastrointestinal hemorrhage, unspecified; N18.3 Chronic kidney disease, stage 3 (moderate); D64.9 Anemia, unspecified; I25.119 Atherosclerotic heart disease of native coronary artery with unspecified angina pectoris; E83.39 Other disorders of phosphorus metabolism; E78.5 Hyperlipidemia, unspecified; J20.9 Acute bronchitis, unspecified; K21.9 Gastro-esophageal reflux disease without esophagitis; K44.9 Diaphragmatic hernia without obstruction or gangrene; R07.89 Other chest pain; M19.90 Unspecified osteoarthritis, unspecified site; I25.2 Old myocardial infarction; Z88.1 Allergy status to other antibiotic agents; Z88.2 Allergy status to sulfonamides; Z88.6 Allergy status to analgesic agent; Z88.8 Allergy status to other drugs, medicaments and biological substances; Z85.3 Personal history of malignant neoplasm of breast; Z86.718 Personal history of other venous thrombosis and embolism; Z85.21 Personal history of malignant neoplasm of larynx; Z87.442 Personal history of urinary calculi; Z90.721 Acquired absence of ovaries, unilateral; Z90.49 Acquired absence of other specified parts of digestive tract; Z95.1 Presence of aortocoronary bypass graft; Z90.11 Acquired absence of right breast and nipple; Z95.818 Presence of other cardiac implants and grafts; Z90.710 Acquired absence of both cervix and uterus; Z83.3 Family history of diabetes mellitus; Z82.49 Family history of ischemic heart disease and other diseases of the circulatory system; Z79.84 Long term (current) use of oral hypoglycemic drugs; Z79.82 Long term (current) use of aspirin; Z79.899 Other long term (current) drug therapy

== ENCOUNTER → 2017-05-05 | Outpatient (CLI) | payer MEDICARE, OTHER ==
[~2017-05-05] MED LIST changes: +APRESOLINE25 MG PO; +K-TAB10 MEQ PO; +LASIX20 MG PO; +TOPROL XL50 M1 PO
[2017-05-05 10:03] LABS: BASO % 0.8 % (0.0-1.0); EOS # 0.2 10*3/uL (0.0-0.4); EOS % 3.7 % (1.0-4.0); HEMATOCRIT 29.8 % (37.0-47.0); HEMOGLOBIN 10.3 g/dl (12.0-16.0); LYMPH # 0.7 10*3/uL (1.3-4.4); LYMPH % 13.9 % (27.0-41.0); MEAN CELL VOLUME 89.5 fl (81.0-99.0); MEAN CORPUSCULAR HGB 30.9 pg (27.0-31.0); MEAN CORPUSCULAR HGB CONC 34.6 g/dl (33.0-37.0); MEAN PLATELET VOLUME 8.8 fl (9.6-12.3); MONO # 0.3 10*3/uL (0.1-1.0); MONO % 6.8 % (3.0-9.0); NEUT # 3.6 10*3/uL (2.3-7.9); NEUT % 73.8 % (47.0-73.0); PLATELET COUNT AUTOMATED 95 10*3/uL (130-400); RED BLOOD COUNT 3.33 10*6/uL (4.10-5.10); RED CELL DISTRI WIDTH 15.7 % (0-14.5); WHITE BLOOD COUNT 4.9 10*3/uL (4.8-10.8)
[2017-05-05 10:30] LABS: ALBUMIN 3.8 gm/dl (3.1-4.5); CREATININE 1.26 mg/dL (0.55-1.02); POTASSIUM 4.8 mmol/L (3.5-5.1); TOTAL PROTEIN 6.7 gm/dL (6.4-8.2)
== END | disposition home or self-care (01) ==
LOC: LAB 09:42
PROVIDERS: Internal Medicine Medical Oncology
DX: C43.70 Malignant melanoma of unspecified lower limb, including hip (principal); C50.911 Malignant neoplasm of unspecified site of right female breast; C32.1 Malignant neoplasm of supraglottis; Z17.1 Estrogen receptor negative status [ER-]

== ENCOUNTER → 2017-05-12 | Outpatient (CLI) | payer MEDICARE, OTHER | END | disposition home or self-care (01) | LOC: LAB 13:48 | DX: J69.0 Pneumonitis due to inhalation of food and vomit (principal); C32.1 Malignant neoplasm of supraglottis; C50.811 Malignant neoplasm of overlapping sites of right female breast; C43.70 Malignant melanoma of unspecified lower limb, including hip; M32.9 Systemic lupus erythematosus, unspecified; R04.2 Hemoptysis; Z17.1 Estrogen receptor negative status [ER-] ==

== ENCOUNTER 2017-05-18 10:44 | Emergency (ER) | payer MEDICARE, OTHER ==
[~2017-05-18] VITALS: Wt 73.9 kg
[2017-05-18 11:11] LABS: EOS # 0.1 10*3/uL (0.0-0.4); EOS % 3.2 % (1.0-4.0); HEMATOCRIT 29.1 % (37.0-47.0); LYMPH # 0.7 10*3/uL (1.3-4.4); LYMPH % 17.7 % (27.0-41.0); MEAN CELL VOLUME 91.2 fl (81.0-99.0); MEAN CORPUSCULAR HGB 31.3 pg (27.0-31.0); MEAN CORPUSCULAR HGB CONC 34.4 g/dl (33.0-37.0); MEAN PLATELET VOLUME 9.2 fl (9.6-12.3); MONO # 0.3 10*3/uL (0.1-1.0); MONO % 6.9 % (3.0-9.0); NEUT # 2.9 10*3/uL (2.3-7.9); NEUT % 70.5 % (47.0-73.0); PLATELET COUNT AUTOMATED 106 10*3/uL (130-400); RED BLOOD COUNT 3.19 10*6/uL (4.10-5.10); RED CELL DISTRI WIDTH 17.2 % (0-14.5); WHITE BLOOD COUNT 4.1 10*3/uL (4.8-10.8)
[2017-05-18 11:26] LABS: CREATININE 1.22 mg/dL (0.55-1.02); POTASSIUM 4.2 mmol/L (3.5-5.1)
[2017-05-18 13:04] VITALS: BP 165/60
== END 2017-05-18 13:26 | disposition home or self-care (01) ==
LOC: ED 10:44
PROVIDERS: Emergency Medicine
DX: S60.221A Contusion of right hand, initial encounter (principal); S80.01XA Contusion of right knee, initial encounter; R55 Syncope and collapse; I13.0 Hypertensive heart and chronic kidney disease with heart failure and stage 1 through stage 4 chronic kidney disease, or unspecified chronic kidney disease; E11.22 Type 2 diabetes mellitus with diabetic chronic kidney disease; N18.3 Chronic kidney disease, stage 3 (moderate); I50.9 Heart failure, unspecified; K21.9 Gastro-esophageal reflux disease without esophagitis; I25.2 Old myocardial infarction; I25.10 Atherosclerotic heart disease of native coronary artery without angina pectoris; M19.90 Unspecified osteoarthritis, unspecified site; Z98.890 Other specified postprocedural states; Z90.49 Acquired absence of other specified parts of digestive tract; Z90.710 Acquired absence of both cervix and uterus; Z95.1 Presence of aortocoronary bypass graft; Z95.5 Presence of coronary angioplasty implant and graft; Z79.899 Other long term (current) drug therapy; Z88.2 Allergy status to sulfonamides; Z88.1 Allergy status to other antibiotic agents; Z85.3 Personal history of malignant neoplasm of breast; Z87.442 Personal history of urinary calculi; Z86.73 Personal history of transient ischemic attack (TIA), and cerebral infarction without residual deficits; Z88.5 Allergy status to narcotic agent; Z88.8 Allergy status to other drugs, medicaments and biological substances; Z88.6 Allergy status to analgesic agent; Z87.01 Personal history of pneumonia (recurrent); Z79.01 Long term (current) use of anticoagulants; X58.XXXA Exposure to other specified factors, initial encounter; Y93.89 Activity, other specified; Y92.89 Other specified places as the place of occurrence of the external cause; Y99.9 Unspecified external cause status

== ENCOUNTER → 2017-05-18 | Outpatient (CLI) | payer MEDICARE, OTHER ==
--- NOTE | ~2017-05-18 | PROC NOTE ---
[place], [place] PROCEDURE NOTE NAME: BRANDI LAND LOCATED [facility]IN [facility] #: [id number] UNIT #: [id number] ROOM: DOCTOR: LEXI KUMARIANN BIRTHDATE: [birth year] DOS: 05/18/2017 MODIFIED BARIUM SWALLOW. DOCTOR: Dr. Ria Farris. RADIOLOGIST: Dr. Rae. BACKGROUND INFORMATION: The patient, a 76-year-old female, was seen for a modified barium swallow. This test was ordered due to suspected chronic aspiration. 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 The patient also reported history of a tracheostomy which remained in place for about 6 years. The patient currently consumes a regular diet and thin liquids. The patient stated that when she eats, she has to be very cautious and feels that she has to bring the material to the right side of her oral cavity prior to swallowing. She stated that if she does not do this or if she takes too much at one time, she will begin coughing and choking. No prior modified barium swallow studies were reported. For today's assessment, the patient was alert and able to follow all commands and demonstrated good recall of her medical history. Respiratory status was reported as within normal limits. Oral peripheral examination revealed presence of natural teeth on the bottom and upper denture with adequate fit reported. Lingual, labial, and buccal skills were within normal limits in terms of strength, range of motion, and coordination. The patient was able to volitionally cough and swallow. METHODS AND MATERIALS USED FOR THE EXAM: The patient was positioned in the lateral plane and the examination was viewed under fluoroscopy. The patient was challenged with a variety of consistencies including applesauce mixed with barium presented in half teaspoon amounts, barium-coated cookie presented in bite size pieces and thin liquid barium taken both by cup and straw. The patient was given the cup and instructed to swallow in her normal sip size amount. ORAL PHASE: Unremarkable. PHARYNGEAL PHASE: The pharyngeal swallow occurred within a timely manner. No residue remained in the pharynx post-swallow. No penetration or aspiration occurred with pureed, solid or thin liquid taken by cup. When the patient took thin liquid by straw, penetration into the laryngeal vestibule occurred due to reduced laryngeal elevation and epiglottic function. ESOPHAGEAL PHASE: This phase of the swallow was not formally assessed during this examination. IMPRESSIONS AND RECOMMENDATIONS: Based upon assessment results, this 76-year-old patient presents with a mild pharyngeal dysphagia. Penetration into the laryngeal vestibule occurred only with liquid when taken by straw. This occurred due to reduced laryngeal elevation and epiglottic function. Following [place], [place] PROCEDURE NOTE NAME: BRANDI LAND UNIT #: [id number] ROOM: DOCTOR: TRAVIS KUMARI BIRTHDATE: [birth year] the exam, the patient began coughing, which could indicate that material fell to the vocal cords. It is recommended that the patient remain on present diet of regular food and thin liquids, but recommend avoidance of straws for safety. Results and recommendations were shared with the patient. She verbalized understanding and agreement. It was also recommended that she continue with her current safe swallow strategies as they have been helpful. No followup treatment is warranted at this time. Thank you very much for this referral. Should you have any questions regarding this patient, please contact the speech pathologist at [phone]. TRAVIS KUMARI CM:PROCNOTE:PROCEDURE NOTE [id number] TRAVIS KUMARI
--- NOTE | ~2017-05-18 | SLPPN ---
[place], [place] PLASMA TABLE OPERATOR PROGRESS NOTE NAME: BRANDI LAND UNIT #: [id number] ROOM: DOCTOR: ZIA LUEVANO Speech Language Pathology Treatment Note Page 1 1 of Patient Name: BRANDI LAND Date: 05/18/2017 11:18 AM : 1940 SOC Date: 05/18/2017 Provider: [facility] Provider #: [id number] Treating Clinician: ERIN Rasheed-PLASMA TABLE OPERATOR Referring Physician: ZIA LOREDOTAFF Onset Date Description Code Primary Diagnosis: 05/18/2017 A000.00 DIAGNOSIS FROM INTERFACE NOT FOUND IN [place] TABLE Time In: 10:00 AM Time Out: 11:00 AM PLASMA TABLE OPERATOR Interventions and CPT Codes Consisted of: CPT Code Modifiers Minutes Units MOTION FLUOROSCOPY/SWALLOW 56096 60 1 Total Minutes: 60 Total Timed Minutes: 0 Total Untimed Minutes: 60 Total Units: 1 Total Timed Units: 0 Total Untimed Units: 1 05/18/2017 11:22:08 AM ERIN Rasheed-PLASMA TABLE OPERATOR Date/Time State License #: [id number] CM:CARINA [id number] IS THERAPY [place]
--- NOTE | ~2017-05-18 | SLPIE ---
[place], [place] MANUFACTURING SYSTEMS ENGINEER INITIAL EVALUATION NAME: BRANDI LAND UNIT #: [id number] ROOM: DOCTOR: ZIA LUEVANO Speech Language Pathology Initial Evaluation Page 1 1 of Patient Name: BRANDI LAND Date: 05/18/2017 11:16 AM : 1940 SOC Date: 05/18/2017 [facility]: [facility] Provider #: [id number] Treating Clinician: ERIN Rasheed-MANUFACTURING SYSTEMS ENGINEER Referring Physician: ZIA LUEVANO Patient Information Address: [address] [place] [address] Physician: ZIA LUEVANO Physician #: City, [facility], Zip: [place], [place] [address] Occupation: Unknown # of Approved Visits: 0 Gender: Female 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 Please see KnowledgeTree for details. Clinical Findings Functional Goals Functional Limitation Reporting Swallowing G8996 - Swallowing functional limitation, current status at therapy episode outset and at reporting intervals Current Status: CI - At least 1 percent but less than 20 percent impaired, limited or restricted G8997 - Swallowing functional limitation, projected goal status, at therapy episode outset, at reporting intervals, and at discharge or to end reporting Goal Status: CI - At least 1 percent but less than 20 percent impaired, limited or restricted G8998 - Swallowing functional limitation, discharge status, at discharge from therapy or to end reporting Discharge Status: CI - At least 1 percent but less than 20 percent impaired, limited or restricted 05/18/2017 11:18:40 AM ERIN Rasheed-AWILDA Date/Time [place], [place] MANUFACTURING SYSTEMS ENGINEER INITIAL EVALUATION NAME: BRANDI LAND UNIT #: [id number] ROOM: DOCTOR: ZIA LUEVANO State License #: [id number] CM:AWILDAIE 21 21 IS THERAPY [facility]
--- NOTE | ~2017-05-18 | SLPPOC ---
[place], [place] BIOINFORMATICS RESEARCH TECHNICIAN PLAN OF CARE NAME: BRANDI LAND UNIT #: [id number] ROOM: DOCTOR: ZIA LUEVANO Speech Language Pathology Plan of Care Page 1 1 (Initial Evaluation) of Patient Name: BRANDI LAND Date: 05/18/2017 11:16 AM : 1940 SOC Date: 05/18/2017 Provider: [facility] Provider #: [id number] Treating Clinician: ERIN Rasheed-BIOINFORMATICS RESEARCH TECHNICIAN Referring Physician: ZIA LUEVANO Medicare #: [id number] Visits From SOC: 1 Onset Date Description Code Primary Diagnosis: 05/18/2017 A000.00 DIAGNOSIS FROM INTERFACE NOT FOUND IN [facility] TABLE Subjective Comments: Initial evaluation created to initiate the electronic medical record. Please see Recensus for details. Initial Level Goals Functional Limitation Reporting Swallowing G8996 - Swallowing functional limitation, current status at therapy episode outset and at reporting intervals Current Status: CI - At least 1 percent but less than 20 percent impaired, limited or restricted G8997 - Swallowing functional limitation, projected goal status, at therapy episode outset, at reporting intervals, and at discharge or to end reporting Goal Status: CI - At least 1 percent but less than 20 percent impaired, limited or restricted G8998 - Swallowing functional limitation, discharge status, at discharge from therapy or to end reporting Discharge Status: CI - At least 1 percent but less than 20 percent impaired, limited or restricted 05/18/2017 11:18:40 AM ZIA LUEVANO Date/Time [place]IO Rasheed Date I certify the need for these services furnished under this plan of treatment while under my care. State License #: [id number] CM:SLPPOC 1122 1122 IS THERAPY [place]
== END | disposition home or self-care (01) ==
LOC: RAD/SH 09:49
DX: J69.0 Pneumonitis due to inhalation of food and vomit (principal); R04.2 Hemoptysis; R06.00 Dyspnea, unspecified; R09.82 Postnasal drip; C32.1 Malignant neoplasm of supraglottis; C50.811 Malignant neoplasm of overlapping sites of right female breast; C43.70 Malignant melanoma of unspecified lower limb, including hip; M32.9 Systemic lupus erythematosus, unspecified; J18.9 Pneumonia, unspecified organism

== ENCOUNTER → 2017-07-05 | Outpatient (CLI) | payer MEDICARE, OTHER ==
[2017-07-05 14:15] LABS: HEMATOCRIT 26.5 % (37.0-47.0); RETICULOCYTE % 7.63 % (0.50-2.50)
== END | disposition home or self-care (01) ==
LOC: LAB 13:14
PROVIDERS: Internal Medicine
DX: D64.9 Anemia, unspecified (principal); D63.8 Anemia in other chronic diseases classified elsewhere

== ENCOUNTER → 2017-11-01 | Outpatient (CLI) | payer MEDICARE, OTHER ==
[2017-11-01 10:58] LABS: BASO % 0.9 % (0.0-1.0); EOS # 0.1 10*3/uL (0.0-0.4); HEMATOCRIT 27.7 % (37.0-47.0); HEMOGLOBIN 9.1 g/dl (12.0-16.0); LYMPH # 0.7 10*3/uL (1.3-4.4); LYMPH % 15.8 % (27.0-41.0); MEAN CORPUSCULAR HGB 30.5 pg (27.0-31.0); MEAN CORPUSCULAR HGB CONC 32.9 g/dl (33.0-37.0); MEAN PLATELET VOLUME 8.9 fl (9.6-12.3); MONO # 0.3 10*3/uL (0.1-1.0); MONO % 7.7 % (3.0-9.0); NEUT # 3.1 10*3/uL (2.3-7.9); NEUT % 72.4 % (47.0-73.0); PLATELET COUNT AUTOMATED 120 10*3/uL (130-400); RED BLOOD COUNT 2.98 10*6/uL (4.10-5.10); RED CELL DISTRI WIDTH 16.4 % (0-14.5); WHITE BLOOD COUNT 4.3 10*3/uL (4.8-10.8)
[2017-11-02 08:08] LABS: COMPLEMENT C4 001834 35 mg/dL (14-44)
== END | disposition home or self-care (01) ==
LOC: LAB 10:21
PROVIDERS: Internal Medicine Rheumatology
DX: M32.19 Other organ or system involvement in systemic lupus erythematosus (principal)

== ENCOUNTER → 2018-01-19 | Emergency (ER) | payer MEDICARE, OTHER ==
[~2018-01-19] VITALS: Wt 69.4 kg
[2018-01-19 10:18] LABS: BASO % 0.8 % (0.0-1.0); EOS # 0.2 10*3/uL (0.0-0.4); EOS % 4.8 % (1.0-4.0); HEMATOCRIT 26.3 % (37.0-47.0); HEMOGLOBIN 8.6 g/dl (12.0-16.0); LYMPH # 0.4 10*3/uL (1.3-4.4); MEAN CELL VOLUME 92.9 fl (81.0-99.0); MEAN CORPUSCULAR HGB 30.4 pg (27.0-31.0); MEAN CORPUSCULAR HGB CONC 32.7 g/dl (33.0-37.0); MEAN PLATELET VOLUME 8.9 fl (9.6-12.3); MONO # 0.3 10*3/uL (0.1-1.0); MONO % 5.4 % (3.0-9.0); NEUT # 3.8 10*3/uL (2.3-7.9); NEUT % 79.6 % (47.0-73.0); PLATELET COUNT AUTOMATED 123 10*3/uL (130-400); RED BLOOD COUNT 2.83 10*6/uL (4.10-5.10); RED CELL DISTRI WIDTH 16.1 % (0-14.5); WHITE BLOOD COUNT 4.8 10*3/uL (4.8-10.8)
[2018-01-19 10:33] LABS: ALKALINE PHOSPHATASE 94 U/L (45-117); BUN 20 mg/dl (7-24); CHLORIDE 101 mmol/L (98-107); CREATININE 1.49 mg/dL (0.55-1.02); POTASSIUM 4.2 mmol/L (3.5-5.1); SGOT/AST 13 IU/L (3-35); SGPT/ALT 14 U/L (12-78); SODIUM 137 mmol/L (136-145); TOTAL PROTEIN 6.6 gm/dL (6.4-8.2)
[2018-01-19 10:35] LABS: TROPONIN I < 0.015 ng/ml (<0.045)
[2018-01-19 10:42] LABS: ACT PARTIAL THROMBO TIME 23.4 SECONDS (20.8-31.5)
[2018-01-19 15:23] VITALS: BP 161/53
== END ==
LOC: ED 09:48
PROVIDERS: Nurse Practitioner Family
DX: A41.9 Sepsis, unspecified organism (principal); N17.9 Acute kidney failure, unspecified; J18.9 Pneumonia, unspecified organism; J38.7 Other diseases of larynx; I13.0 Hypertensive heart and chronic kidney disease with heart failure and stage 1 through stage 4 chronic kidney disease, or unspecified chronic kidney disease; E11.22 Type 2 diabetes mellitus with diabetic chronic kidney disease; D64.9 Anemia, unspecified; N18.3 Chronic kidney disease, stage 3 (moderate); K21.9 Gastro-esophageal reflux disease without esophagitis; I50.9 Heart failure, unspecified; I25.10 Atherosclerotic heart disease of native coronary artery without angina pectoris; E11.65 Type 2 diabetes mellitus with hyperglycemia; Z87.442 Personal history of urinary calculi; Z85.3 Personal history of malignant neoplasm of breast; Z95.5 Presence of coronary angioplasty implant and graft; Z90.89 Acquired absence of other organs; Z95.1 Presence of aortocoronary bypass graft; Z79.899 Other long term (current) drug therapy; Z86.73 Personal history of transient ischemic attack (TIA), and cerebral infarction without residual deficits; Z88.2 Allergy status to sulfonamides; Z88.5 Allergy status to narcotic agent; Z88.1 Allergy status to other antibiotic agents; Z88.3 Allergy status to other anti-infective agents; Z88.8 Allergy status to other drugs, medicaments and biological substances

== ENCOUNTER → 2018-03-01 | Outpatient (CLI) | payer MEDICARE, OTHER ==
[2018-03-01 11:22] LABS: BASO % 0.9 % (0.0-1.0); EOS # 0.2 10*3/uL (0.0-0.4); EOS % 4.5 % (1.0-4.0); HEMATOCRIT 27.6 % (37.0-47.0); HEMOGLOBIN 9.2 g/dl (12.0-16.0); LYMPH # 0.8 10*3/uL (1.3-4.4); LYMPH % 18.1 % (27.0-41.0); MEAN CELL VOLUME 92.6 fl (81.0-99.0); MEAN CORPUSCULAR HGB 30.9 pg (27.0-31.0); MEAN CORPUSCULAR HGB CONC 33.3 g/dl (33.0-37.0); MEAN PLATELET VOLUME 9.9 fl (9.6-12.3); MONO # 0.3 10*3/uL (0.1-1.0); MONO % 6.7 % (3.0-9.0); NEUT # 3.1 10*3/uL (2.3-7.9); NEUT % 69.6 % (47.0-73.0); PLATELET COUNT AUTOMATED 118 10*3/uL (130-400); RED BLOOD COUNT 2.98 10*6/uL (4.10-5.10); RED CELL DISTRI WIDTH 16.3 % (0-14.5); RETICULOCYTE % 5.96 % (0.50-2.50); WHITE BLOOD COUNT 4.5 10*3/uL (4.8-10.8)
[2018-03-01 11:38] LABS: BILIRUBIN, DIRECT 0.2 mg/dL (0.0-0.2); CREATININE 1.35 mg/dL (0.55-1.02); TOTAL PROTEIN 6.8 gm/dL (6.4-8.2)
== END | disposition home or self-care (01) ==
LOC: LAB 10:45
PROVIDERS: Internal Medicine Hematology & Oncology
DX: D55.1 Anemia due to other disorders of glutathione metabolism (principal); D59.1 Other autoimmune hemolytic anemias; D64.9 Anemia, unspecified

== ENCOUNTER → 2018-03-16 | Outpatient (CLI) | payer MEDICARE, OTHER ==
[~2018-03-16] MED LIST changes: +AMOXICILLIN500 M3 PO; +PREDNISONE50 MG PO
[2018-03-16 09:49] LABS: BASO # 0.1 10*3/uL (0.0-0.1); BASO % 1.2 % (0.0-1.0); EOS # 0.2 10*3/uL (0.0-0.4); EOS % 4.5 % (1.0-4.0); HEMATOCRIT 27.9 % (37.0-47.0); HEMOGLOBIN 9.2 g/dl (12.0-16.0); LYMPH # 0.6 10*3/uL (1.3-4.4); LYMPH % 15.1 % (27.0-41.0); MEAN CELL VOLUME 91.8 fl (81.0-99.0); MEAN CORPUSCULAR HGB 30.3 pg (27.0-31.0); MEAN PLATELET VOLUME 9.5 fl (9.6-12.3); MONO # 0.2 10*3/uL (0.1-1.0); MONO % 5.4 % (3.0-9.0); NEUT % 73.1 % (47.0-73.0); PLATELET COUNT AUTOMATED 110 10*3/uL (130-400); RED BLOOD COUNT 3.04 10*6/uL (4.10-5.10); RED CELL DISTRI WIDTH 15.8 % (0-14.5)
[2018-03-16 10:05] LABS: ALBUMIN 4.2 gm/dl (3.1-4.5); CREATININE 1.29 mg/dL (0.55-1.02); POTASSIUM 4.2 mmol/L (3.5-5.1); TOTAL PROTEIN 6.7 gm/dL (6.4-8.2)
[2018-03-16 10:27] LABS: FREE T4 1.38 ng/dl (0.76-1.46)
== END | disposition home or self-care (01) ==
LOC: LAB 09:08
PROVIDERS: Internal Medicine; Internal Medicine Hematology & Oncology
DX: E11.22 Type 2 diabetes mellitus with diabetic chronic kidney disease (principal); N18.3 Chronic kidney disease, stage 3 (moderate); E03.9 Hypothyroidism, unspecified; D55.1 Anemia due to other disorders of glutathione metabolism; D59.1 Other autoimmune hemolytic anemias; D64.9 Anemia, unspecified

== ENCOUNTER → 2018-04-12 | Outpatient (CLI) | payer MEDICARE, OTHER ==
[~2018-04-12] MED LIST changes: -AMOXICILLIN500 M3 PO; -PREDNISONE50 MG PO
[2018-04-12 12:06] LABS: BILIRUBIN, DIRECT 0.2 mg/dL (0.0-0.2); CREATININE 1.43 mg/dL (0.55-1.02); POTASSIUM 4.4 mmol/L (3.5-5.1); TOTAL PROTEIN 6.7 gm/dL (6.4-8.2)
[2018-04-12 12:17] LABS: BASO % 0.8 % (0.0-1.0); EOS # 0.2 10*3/uL (0.0-0.4); EOS % 3.1 % (1.0-4.0); HEMATOCRIT 28.5 % (37.0-47.0); HEMOGLOBIN 9.6 g/dl (12.0-16.0); LYMPH # 0.7 10*3/uL (1.3-4.4); LYMPH % 13.6 % (27.0-41.0); MEAN CELL VOLUME 90.8 fl (81.0-99.0); MEAN CORPUSCULAR HGB 30.6 pg (27.0-31.0); MEAN CORPUSCULAR HGB CONC 33.7 g/dl (33.0-37.0); MEAN PLATELET VOLUME 9.9 fl (9.6-12.3); MONO # 0.3 10*3/uL (0.1-1.0); MONO % 5.8 % (3.0-9.0); NEUT # 3.9 10*3/uL (2.3-7.9); NEUT % 76.3 % (47.0-73.0); PLATELET COUNT AUTOMATED 114 10*3/uL (130-400); RED BLOOD COUNT 3.14 10*6/uL (4.10-5.10); RED CELL DISTRI WIDTH 15.8 % (0-14.5); RETICULOCYTE % 4.92 % (0.50-2.50); WHITE BLOOD COUNT 5.1 10*3/uL (4.8-10.8)
== END | disposition home or self-care (01) ==
LOC: LAB 10:56
PROVIDERS: Internal Medicine Hematology & Oncology
DX: D55.1 Anemia due to other disorders of glutathione metabolism (principal); D59.1 Other autoimmune hemolytic anemias; D64.9 Anemia, unspecified

== ENCOUNTER → 2018-06-28 | Outpatient (CLI) | payer MEDICARE, OTHER ==
[~2018-06-28] MED LIST changes: +AMOXICILLIN500 M3 PO; +MAGNESIUM250 M1 PO; +PREDNISONE50 MG PO
[2018-06-28 10:17] LABS: BILIRUBIN, DIRECT 0.1 mg/dL (0.0-0.2); CREATININE 1.27 mg/dL (0.55-1.02); POTASSIUM 4.5 mmol/L (3.5-5.1); TOTAL PROTEIN 6.6 gm/dL (6.4-8.2)
[2018-06-28 11:08] LABS: BASO % 0.9 % (0.0-1.0); EOS # 0.2 10*3/uL (0.0-0.4); EOS % 3.8 % (1.0-4.0); HEMATOCRIT 28.9 % (37.0-47.0); HEMOGLOBIN 9.8 g/dl (12.0-16.0); LYMPH # 0.7 10*3/uL (1.3-4.4); LYMPH % 15.9 % (27.0-41.0); MEAN CELL VOLUME 92.3 fl (81.0-99.0); MEAN CORPUSCULAR HGB 31.3 pg (27.0-31.0); MEAN CORPUSCULAR HGB CONC 33.9 g/dl (33.0-37.0); MEAN PLATELET VOLUME 9.9 fl (9.6-12.3); MONO # 0.3 10*3/uL (0.1-1.0); MONO % 7.4 % (3.0-9.0); NEUT # 3.2 10*3/uL (2.3-7.9); NEUT % 71.6 % (47.0-73.0); PLATELET COUNT AUTOMATED 104 10*3/uL (130-400); RED BLOOD COUNT 3.13 10*6/uL (4.10-5.10); RED CELL DISTRI WIDTH 15.7 % (0-14.5); RETICULOCYTE % 4.01 % (0.50-2.50); WHITE BLOOD COUNT 4.5 10*3/uL (4.8-10.8)
== END | disposition home or self-care (01) ==
LOC: LAB 09:26
PROVIDERS: Internal Medicine Hematology & Oncology
DX: D64.9 Anemia, unspecified (principal); D59.1 Other autoimmune hemolytic anemias; D55.1 Anemia due to other disorders of glutathione metabolism

== ENCOUNTER → 2018-08-10 | Day surgery (SDC) | payer MEDICARE, OTHER ==
[~2018-08-10] VITALS: Ht 154.9 cm; Wt 55.3 kg
--- NOTE | ~2018-08-10 | PROC NOTE ---
[place], [place] PROCEDURE NOTE NAME: BRANDI LAND [facility] #: [id number] UNIT #: [id number] ROOM: DOCTOR: HANS BALTAZAR MD BIRTHDATE: [birth year] DOS: 08/10/2018 PREOPERATIVE DIAGNOSES: Weight loss, lower gastrointestinal bleed. POSTOPERATIVE DIAGNOSIS: Normal sigmoid colon. PROCEDURE: Flexible sigmoidoscopy. ENDOSCOPIST: Hans Baltazar MD CARDBOARD CUTTER: LUCIEN. ANESTHESIA: MAC. INDICATIONS: This is a 77-year-old lady with multiple medical problems and comorbidities who is here for workup for weight loss of approximately 65 pounds and lower GI bleed. The patient originally was scheduled to have an EGD with colonoscopy, but today in preop, she expressed a desire to not have the EGD and just have the colonoscopy. DESCRIPTION OF PROCEDURE: After changing the consent to just the colonoscopy, the patient was brought to the endoscopy suite and placed in the left lateral position. After IV sedation was administered by the Anesthesia Team, a timeout procedure was called and a digital rectal exam was performed. This was within normal limits. An adult colonoscope was now introduced into the anal canal and advanced sequentially to the rectum, sigmoid colon up to 20 cm. The scope could not be passed beyond the 20 cm eloy despite multiple attempts and also changing the patient's position from the left lateral to supine. At this point, the scope was withdrawn. There was no evidence of any blood or any obvious masses that could be seen in the sigmoid colon or the rectum, there were some internal hemorrhoids that were visualized, the scope was then withdrawn and the patient was brought back to the recovery room in stable fashion. There were no complications. The patient will be set up to have a stat CT of the abdomen and pelvis with oral and rectal as well as IV contrast. This has been arranged for and I will talk to the patient's regarding the CAT scan findings, he is already aware of the findings of the flexible sigmoidoscopy. Hans Baltazar MD CM:PROCNOTE:PROCEDURE NOTE [id number] HANS BALTAZAR MD
[2018-08-10 07:21] VITALS: BP 149/41
[2018-08-10 08:25] VITALS: BP 147/49
[2018-08-10 08:40] VITALS: BP 135/46
[2018-08-10 08:55] VITALS: BP 148/49
[2018-08-10 09:00] LABS: CREATININE 1.08 mg/dL (0.55-1.02)
== END | disposition home or self-care (01) ==
LOC: SDC 08-07 12:30
PROVIDERS: Surgery
DX: K64.8 Other hemorrhoids (principal); K92.2 Gastrointestinal hemorrhage, unspecified; K21.9 Gastro-esophageal reflux disease without esophagitis; I10 Essential (primary) hypertension; E11.9 Type 2 diabetes mellitus without complications; E78.00 Pure hypercholesterolemia, unspecified; E03.9 Hypothyroidism, unspecified; I25.2 Old myocardial infarction; I25.10 Atherosclerotic heart disease of native coronary artery without angina pectoris; M19.90 Unspecified osteoarthritis, unspecified site; Z85.828 Personal history of other malignant neoplasm of skin; Z86.73 Personal history of transient ischemic attack (TIA), and cerebral infarction without residual deficits; Z85.3 Personal history of malignant neoplasm of breast; Z90.710 Acquired absence of both cervix and uterus; Z90.49 Acquired absence of other specified parts of digestive tract; Z98.890 Other specified postprocedural states; Z79.82 Long term (current) use of aspirin; Z79.899 Other long term (current) drug therapy; Z88.8 Allergy status to other drugs, medicaments and biological substances; Z87.442 Personal history of urinary calculi; Z82.49 Family history of ischemic heart disease and other diseases of the circulatory system; Z83.3 Family history of diabetes mellitus

== ENCOUNTER 2018-09-03 14:59 | Emergency (ER) | payer MEDICARE, OTHER ==
[~2018-09-03] VITALS: Ht 152.4 cm; Wt 54.4 kg
[2018-09-03 15:01] VITALS: BP 106/75
[2018-09-03 15:54] LABS: BASO % 0.9 % (0.0-1.0); EOS # 0.1 10*3/uL (0.0-0.4); EOS % 2.4 % (1.0-4.0); HEMATOCRIT 27.1 % (37.0-47.0); HEMOGLOBIN 9.2 g/dl (12.0-16.0); LYMPH # 0.7 10*3/uL (1.3-4.4); LYMPH % 14.3 % (27.0-41.0); MEAN CELL VOLUME 91.6 fl (81.0-99.0); MEAN CORPUSCULAR HGB 31.1 pg (27.0-31.0); MEAN CORPUSCULAR HGB CONC 33.9 g/dl (33.0-37.0); MEAN PLATELET VOLUME 8.5 fl (9.6-12.3); MONO # 0.3 10*3/uL (0.1-1.0); MONO % 7.1 % (3.0-9.0); NEUT # 3.5 10*3/uL (2.3-7.9); NEUT % 74.7 % (47.0-73.0); PLATELET COUNT AUTOMATED 111 10*3/uL (130-400); RED BLOOD COUNT 2.96 10*6/uL (4.10-5.10); RED CELL DISTRI WIDTH 15.8 % (0-14.5); WHITE BLOOD COUNT 4.6 10*3/uL (4.8-10.8)
[2018-09-03 16:12] LABS: ALBUMIN 3.6 gm/dl (3.1-4.5); ALKALINE PHOSPHATASE 81 U/L (45-117); BUN 31 mg/dl (7-24); CHLORIDE 104 mmol/L (98-107); CREATININE 1.17 mg/dL (0.55-1.02); POTASSIUM 4.4 mmol/L (3.5-5.1); SGOT/AST 10 IU/L (3-35); SGPT/ALT 16 U/L (12-78); SODIUM 136 mmol/L (136-145); TOTAL PROTEIN 6.5 gm/dL (6.4-8.2)
[2018-09-03 16:13] LABS: TROPONIN I < 0.015 ng/ml (<0.045)
[2018-09-03] MEDS ORDERED: AMOXICILLIN500 M2 PO (17:36)
== END 2018-09-03 18:06 | disposition home or self-care (01) ==
LOC: ED 14:59
PROVIDERS: Nurse Practitioner Family
DX: J32.9 Chronic sinusitis, unspecified (principal); H66.91 Otitis media, unspecified, right ear; E11.22 Type 2 diabetes mellitus with diabetic chronic kidney disease; I13.0 Hypertensive heart and chronic kidney disease with heart failure and stage 1 through stage 4 chronic kidney disease, or unspecified chronic kidney disease; N18.3 Chronic kidney disease, stage 3 (moderate); I50.9 Heart failure, unspecified; I25.10 Atherosclerotic heart disease of native coronary artery without angina pectoris; K21.9 Gastro-esophageal reflux disease without esophagitis; I25.2 Old myocardial infarction; Z88.2 Allergy status to sulfonamides; Z88.1 Allergy status to other antibiotic agents; Z88.5 Allergy status to narcotic agent; Z88.8 Allergy status to other drugs, medicaments and biological substances; Z88.6 Allergy status to analgesic agent; Z79.899 Other long term (current) drug therapy; Z90.49 Acquired absence of other specified parts of digestive tract; Z90.710 Acquired absence of both cervix and uterus; Z86.73 Personal history of transient ischemic attack (TIA), and cerebral infarction without residual deficits

== ENCOUNTER → 2018-11-22 | Outpatient (CLI) | payer MEDICARE, OTHER ==
[~2018-11-22] MED LIST changes: +FERROUS SULFAT325 MG PO; +IMDUR SA30 MG PO; +VITAMIN D35000 UNIT PO
[2018-11-22 10:47] LABS: FREE T4 1.22 ng/dl (0.76-1.46)
== END | disposition home or self-care (01) ==
LOC: LAB 09:27
PROVIDERS: Physician Assistant
DX: L03.90 Cellulitis, unspecified (principal); A49.02 Methicillin resistant Staphylococcus aureus infection, unspecified site; I10 Essential (primary) hypertension; E11.9 Type 2 diabetes mellitus without complications; E03.9 Hypothyroidism, unspecified; K21.9 Gastro-esophageal reflux disease without esophagitis; D63.8 Anemia in other chronic diseases classified elsewhere; E78.2 Mixed hyperlipidemia; E55.9 Vitamin D deficiency, unspecified

== ENCOUNTER → 2019-01-08 | Outpatient (CLI) | payer MEDICARE, OTHER | END | disposition home or self-care (01) | LOC: WOUNDCARE 00:51 | DX: T81.89XD Other complications of procedures, not elsewhere classified, subsequent encounter (principal); S81.802D Unspecified open wound, left lower leg, subsequent encounter; M32.10 Systemic lupus erythematosus, organ or system involvement unspecified; E11.51 Type 2 diabetes mellitus with diabetic peripheral angiopathy without gangrene; D55.0 Anemia due to glucose-6-phosphate dehydrogenase [G6PD] deficiency; C44.729 Squamous cell carcinoma of skin of left lower limb, including hip; I10 Essential (primary) hypertension; E03.9 Hypothyroidism, unspecified; I25.10 Atherosclerotic heart disease of native coronary artery without angina pectoris; K21.9 Gastro-esophageal reflux disease without esophagitis; I25.2 Old myocardial infarction; Z86.73 Personal history of transient ischemic attack (TIA), and cerebral infarction without residual deficits; Z85.3 Personal history of malignant neoplasm of breast; Z87.891 Personal history of nicotine dependence; X58.XXXD Exposure to other specified factors, subsequent encounter; Y83.8 Other surgical procedures as the cause of abnormal reaction of the patient, or of later complication, without mention of misadventure at the time of the procedure ==

== ENCOUNTER → 2019-01-15 | Outpatient (CLI) | payer MEDICARE, OTHER | END | disposition home or self-care (01) | LOC: WOUNDCARE 00:43 | DX: T81.89XD Other complications of procedures, not elsewhere classified, subsequent encounter (principal); S81.802D Unspecified open wound, left lower leg, subsequent encounter; C44.729 Squamous cell carcinoma of skin of left lower limb, including hip; E11.51 Type 2 diabetes mellitus with diabetic peripheral angiopathy without gangrene; M32.10 Systemic lupus erythematosus, organ or system involvement unspecified; I10 Essential (primary) hypertension; E78.00 Pure hypercholesterolemia, unspecified; E03.9 Hypothyroidism, unspecified; I25.10 Atherosclerotic heart disease of native coronary artery without angina pectoris; K21.9 Gastro-esophageal reflux disease without esophagitis; I25.2 Old myocardial infarction; Z86.73 Personal history of transient ischemic attack (TIA), and cerebral infarction without residual deficits; Z87.891 Personal history of nicotine dependence; Z85.3 Personal history of malignant neoplasm of breast; X58.XXXD Exposure to other specified factors, subsequent encounter; Y83.8 Other surgical procedures as the cause of abnormal reaction of the patient, or of later complication, without mention of misadventure at the time of the procedure ==

== ENCOUNTER 2019-04-05 08:33 | Inpatient (IN) | payer MEDICARE, OTHER ==
[2019-04-05] VITALS (10 sets, daily range): BP systolic 132–200; BP diastolic 40–66
[~2019-04-05] VITALS: Ht 154.9 cm; Wt 57.8 kg
--- NOTE | ~2019-04-05 | EKG ---
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
--- NOTE | ~2019-04-05 | EKG ---
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: : 1940 Requested By: PRINCE JEFFREY Order Number: [id number] Reading MD: Dennys Rossi MD Measurements Intervals [place] Rate: 72 P: 55 [place]: 162 QRS: -21 QRSD: 79 T: 77 QT: 381 QTc: 417 Interpretive Statements Sinus rhythm Borderline left axis deviation Abnormal R-wave progression, early transition Nonspecific repol abnormality, diffuse leads Baseline wander in lead(s) V3,V4,V5 Compared to ECG 04/05/2019 08:50:57 Early repolarization now present Atrial premature complex(es) no longer present Electronically Signed On 04-07-2019 6:49:56 PDT by Dennys Rossi MD CM:EKGRPT:ELECTROCARDIOGRAM REPORT [id number] PRINCE WOJCIECH VALLES DRAFT REPORT PRINCE JEFFREY
--- NOTE | ~2019-04-05 | EKG ---
[place], [place] ELECTROCARDIOGRAM REPORT NAME: BRANDI LAND UNIT #: [id number] ROOM: 520 DOCTOR: REENA DRAFT REPORT BIRTHDATE: [birth year] [facility] Test Date: 2019-04-05 Test Time: 08:50:57 Pat Name: BRANDI LNAD Department: Room: 520 Gender: F Barrel Header: Emy Piper : 1940 Requested By: ARSEN NGUYEN Order Number: [id number] Reading MD: Juan Dong MD Measurements Intervals [place] Rate: 67 P: 54 [place]: 171 QRS: -29 QRSD: 81 T: 64 QT: 380 QTc: 401 Interpretive Statements Sinus rhythm Atrial premature complexes Borderline left axis deviation Baseline wander in lead(s) II,III,aVF Compared to ECG 04/30/2018 11:14:57 Atrial premature complex(es) now present Electronically Signed On 04-05-2019 11:23:47 PDT by Juan Dong MD CM:EKGRPT:ELECTROCARDIOGRAM REPORT [id number] ARSEN PEREZ DRAFT REPORT ARSEN NGUYEN DO
--- NOTE | ~2019-04-05 | EKG ---
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1940 Requested By: PRINCE JEFFREY Order Number: [id number] Reading MD: Dennys Rossi MD Measurements Intervals [place] Rate: 68 P: 51 GA: 165 QRS: -11 QRSD: 79 T: 70 QT: 390 QTc: 415 Interpretive Statements Sinus rhythm RSR' in V1 or V2, right VCD or RVH Nonspecific T abnrm, anterolateral leads Compared to ECG 04/05/2019 08:50:57 Right ventricular hypertrophy now present RSR' in V1 or V2 now present Atrial premature complex(es) no longer present Electronically Signed On 04-07-2019 6:50:17 PDT by Dennys Rossi MD CM:EKGRPT:ELECTROCARDIOGRAM REPORT [id number] PRINCE WOJCIECH VALLES DRAFT REPORT PRINCE JEFFREY
--- NOTE | ~2019-04-05 | EKG ---
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
--- NOTE | ~2019-04-05 | ST ---
[place], [place] EXERCISE STRESS TEST REPORT NAME: BRANDI LAND [facility] #: [id number] UNIT #: [id number] ROOM: 520 DOCTOR: GUSTAVO REES MD BIRTHDATE: [birth year] DOS: 04/08/2019 REFERRING PHYSICIAN: Dr. Blum. INDICATION: Central chest pain. The patient underwent standard protocol Lexiscan stress EKG. The patient's baseline EKG is normal sinus rhythm, nonspecific ST-T wave changes, heart rate 60, blood pressure 120/64. Patient's peak heart rate was 94 with blood pressure 114/60. The patient had no chest pain, no EKG changes. No significant arrhythmias. SUMMARY OF FINDINGS: Unremarkable Lexiscan stress EKG. Please see separate report for perfusion scan results. GUSTAVO REES MD CM:STRESS:EXERCISE STRESS TEST REPORT [id number] GUSTAVO REES MD
--- NOTE | ~2019-04-05 | EKG ---
[place], [place] ELECTROCARDIOGRAM REPORT NAME: BRANDI LAND UNIT #: [id number] ROOM: 520 DOCTOR: REENA DRAFT REPORT BIRTHDATE: [birth year] [facility] Test Date: 2019-04-07 Test Time: 07:31:20 Pat Name: BRANDI LAND Department: Room: 520 1 Gender: F Sr. Logistics Analyst: Emy Piper : 1940 Requested By: ALICJA HERRERA Order Number: [id number] Reading MD: Dennys Rossi MD Measurements Intervals [place] Rate: 67 P: 52 [place]: 162 QRS: -11 QRSD: 74 T: 73 QT: 382 QTc: 404 Interpretive Statements Sinus rhythm Probable left atrial enlargement Abnormal R-wave progression, early transition Minimal ST depression, lateral leads Minimal ST elevation, inferior leads Compared to ECG 04/05/2019 08:50:57 ST (T wave) deviation now present Atrial premature complex(es) no longer present Electronically Signed On 04-08-2019 12:00:37 PDT by Dennys Rossi MD CM:EKGRPT:ELECTROCARDIOGRAM REPORT [id number] [id number] ALICJA PEREZ DRAFT REPORT ALICJA HERRERA DO
--- NOTE | ~2019-04-05 | EKG ---
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: 18 : 1940 Requested By: ALICJA HERRERA Order Number: [id number] Reading MD: Dennys Rossi MD Measurements Intervals [place] Rate: 63 P: 80 [place]: 164 QRS: -3 QRSD: 80 T: 67 QT: 404 QTc: 414 Interpretive Statements Sinus rhythm Abnormal R-wave progression, early transition Minimal ST depression, lateral leads Minimal ST elevation, inferior leads Baseline wander in lead(s) II,aVF Compared to ECG 04/05/2019 08:50:57 ST (T wave) deviation now present Atrial premature complex(es) no longer present Electronically Signed On 04-07-2019 6:51:55 PDT by Dennys Rossi MD CM:EKGRPT:ELECTROCARDIOGRAM REPORT [id number] ALICJA PEREZ DRAFT REPORT ALICJA HERRERA DO
[~2019-04-05 08:33] MED LIST changes: -FERROUS SULFAT325 MG PO; -IMDUR SA30 MG PO; -VITAMIN D35000 UNIT PO
[2019-04-05 09:10] LABS: BASO % 0.9 % (0.0-1.0); EOS # 0.1 10*3/uL (0.0-0.4); HEMATOCRIT 30.4 % (37.0-47.0); HEMOGLOBIN 10.2 g/dl (12.0-16.0); LYMPH # 0.5 10*3/uL (1.3-4.4); LYMPH % 15.6 % (27.0-41.0); MEAN CELL VOLUME 91.3 fl (81.0-99.0); MEAN CORPUSCULAR HGB 30.6 pg (27.0-31.0); MEAN CORPUSCULAR HGB CONC 33.6 g/dl (33.0-37.0); MEAN PLATELET VOLUME 9.1 fl (9.6-12.3); MONO # 0.3 10*3/uL (0.1-1.0); MONO % 7.2 % (3.0-9.0); NEUT # 2.5 10*3/uL (2.3-7.9); PLATELET COUNT AUTOMATED 97 10*3/uL (130-400); RED BLOOD COUNT 3.33 10*6/uL (4.10-5.10); RED CELL DISTRI WIDTH 15.2 % (0-14.5); WHITE BLOOD COUNT 3.5 10*3/uL (4.8-10.8)
[2019-04-05 09:28] LABS: ALBUMIN 4.1 gm/dl (3.1-4.5); ALKALINE PHOSPHATASE 93 U/L (45-117); BUN 28 mg/dl (7-24); CHLORIDE 107 mmol/L (98-107); CREATININE 1.17 mg/dL (0.55-1.02); LIPASE 179 U/L (73-393); POTASSIUM 4.5 mmol/L (3.5-5.1); SGOT/AST 13 IU/L (3-35); SGPT/ALT 15 U/L (12-78); SODIUM 137 mmol/L (136-145); TOTAL PROTEIN 6.7 gm/dL (6.4-8.2)
[2019-04-05 09:31] LABS: TROPONIN I < 0.015 ng/ml (<0.045)
[2019-04-05 09:52] LABS: ACT PARTIAL THROMBO TIME 22.5 SECONDS (20.0-32.1); INTERNATIONAL NORM RATIO 0.9 (2.0-3.5)
[2019-04-05] MEDS ORDERED: FERROUS SULFAT325 MG PO (10:10)
[2019-04-05] MEDS ORDERED: VITAMIN D35000 UNIT PO (10:10)
--- NOTE | 2019-04-05 10:35 | NUR ---
PT AMBULATING TO BATHROOM WITH ASSIST. GAIT STEADY AT THIS TIME.
--- NOTE | 2019-04-05 14:00 | NUR ---
A 78, admitted to 5E, under the services of JAS Marie DO with a diagnosis of Hypertensive Emergency. Chief complaint is Dysphagia Dyspnea allergic reaction. Patient arrived via stretcher from [place]. Monitor applied. Initial assessment completed. Vital signs taken and recorded. JAS MARIE DO notified of admission to the unit. Orders received. See assessment for past medical history, medications and allergies. Patient and/or family oriented to unit. [address] visitation policy reviewed. Clothing/patient valuable form completed. QUIN ROSENBERG
--- NOTE | 2019-04-05 15:30 | NUR ---
Notified [facility] of consult for Hypertensive Emergency.
[2019-04-05] MEDS ORDERED: TOPROL XL25 MG PO (17:16)
--- NOTE | 2019-04-05 17:23 | NUR ---
Notified Dr. Ortiz that med rec is completed and up to date.
[2019-04-06] VITALS: BP 129/68
[2019-04-06 06:32] LABS: CREATININE 1.16 mg/dL (0.55-1.02); POTASSIUM 4.4 mmol/L (3.5-5.1)
[2019-04-06 06:40] LABS: BASO % 0.3 % (0.0-1.0); EOS % 0.4 % (1.0-4.0); HEMATOCRIT 30.6 % (37.0-47.0); HEMOGLOBIN 10.3 g/dl (12.0-16.0); LYMPH # 0.7 10*3/uL (1.3-4.4); LYMPH % 8.9 % (27.0-41.0); MEAN CELL VOLUME 91.3 fl (81.0-99.0); MEAN CORPUSCULAR HGB 30.7 pg (27.0-31.0); MEAN CORPUSCULAR HGB CONC 33.7 g/dl (33.0-37.0); MEAN PLATELET VOLUME 9.2 fl (9.6-12.3); MONO # 0.4 10*3/uL (0.1-1.0); NEUT # 6.3 10*3/uL (2.3-7.9); NEUT % 84.9 % (47.0-73.0); RED BLOOD COUNT 3.35 10*6/uL (4.10-5.10); WHITE BLOOD COUNT 7.4 10*3/uL (4.8-10.8)
[2019-04-06 06:44] LABS: FREE T4 1.22 ng/dl (0.76-1.46); THYROID STIM HORMONE (HS) 0.325 uIU/ml (0.358-4.75)
[2019-04-06 06:48] LABS: PLATELET COUNT AUTOMATED 135 10*3/uL (130-400)
--- NOTE | 2019-04-06 06:53 | NUR ---
24 HR chart check completed.
[2019-04-06 07:51] LABS: VITAMIN D, 25-HYDROXY 40.7 ng/mL (30-100)
[2019-04-06 08:00] VITALS: BP 156/55
--- NOTE | 2019-04-06 08:04 | NUR ---
Contacted [facility] because patient is requesting Nitro sublingual for c/o C/P. Nitro transdermal patch was applied at 0638. Patient stated "I have the tablets in my purse and I'll just take one." "I'm not going to sit here and have a heart attack." "Why didn't they order them?" "They are on my med list!" Awaiting call back.
--- NOTE | 2019-04-06 08:11 | NUR ---
Contacted Dr. Hernandez regarding patients c/o C/P and her request for sublingual nitro and call out to cardiology. See new orders.
--- NOTE | 2019-04-06 08:26 | NUR ---
Contacted Dr. Hernandez regarding patient stating she will take the sublingual Nitro if she thinks she needs it. I stated that I cannot let her take anything the doctors have not ordered. She stated "the doctors did order because I have my prescription in my purse." I clarified that the physicians did not continue it for this hospitalization and she is putting herself at risk if she were to take it. I asked her if she would remove it from her purse so I could lock it up in the wall-o-alessandra (cabinet in patients room) and she said "I will not!" Staff member Gisela was in the room at the time as a witness to the conversation. Patient once again reiterated that she would take it if she needed it.
[2019-04-06 12:00] VITALS: BP 135/56
[2019-04-06 16:00] VITALS: BP 136/41
[2019-04-06 20:00] VITALS: BP 140/58
[2019-04-07] VITALS: BP 124/50
[2019-04-07 06:37] LABS: BASO # 0.1 10*3/uL (0.0-0.1); EOS # 0.1 10*3/uL (0.0-0.4); EOS % 2.5 % (1.0-4.0); HEMATOCRIT 28.5 % (37.0-47.0); HEMOGLOBIN 9.4 g/dl (12.0-16.0); LYMPH # 0.9 10*3/uL (1.3-4.4); LYMPH % 16.5 % (27.0-41.0); MEAN CELL VOLUME 90.8 fl (81.0-99.0); MEAN CORPUSCULAR HGB 29.9 pg (27.0-31.0); MONO # 0.4 10*3/uL (0.1-1.0); MONO % 7.7 % (3.0-9.0); NEUT # 3.8 10*3/uL (2.3-7.9); NEUT % 72.1 % (47.0-73.0); PLATELET COUNT AUTOMATED 112 10*3/uL (130-400); RED BLOOD COUNT 3.14 10*6/uL (4.10-5.10); RED CELL DISTRI WIDTH 15.3 % (0-14.5); WHITE BLOOD COUNT 5.2 10*3/uL (4.8-10.8)
[2019-04-07 06:59] LABS: ALBUMIN 3.8 gm/dl (3.1-4.5); CREATININE 1.2 mg/dL (0.55-1.02); POTASSIUM 4.7 mmol/L (3.5-5.1); TOTAL PROTEIN 6.4 gm/dL (6.4-8.2)
[2019-04-07 07:15] VITALS: BP 136/63
--- NOTE | 2019-04-07 07:29 | NUR ---
pt had stated that she was short of breath and having difficulty swallowing,previous shift nurse called physician and got iv benadryl. iv benadryl given and then patient stated that the swallowing difficulty and difficulty breathing was worsening, pt felt like she was "fading out". previous shift rn then called a rapid while rn stay in with patient. no swelling noted in throat when looking with flashlight.pt is able to move all extremities equally.
--- NOTE | 2019-04-07 08:00 | NUR ---
PT STATES LEFT CHEST PAIN RADIATING TO LEFT NECK, STATES NUMBNESS LEFT ARM. PT IS CONCERNED THAT SHE HAS PASSED OUT IN THE PAST HOWEVER, THE SYMPTOMS SHE IS HAVING THIS MORNING ARE "DIFFERENT BUT THE SAME" RN SAT WITH PATIENT, REASSURED HER. PATIENT ABLE TO MOVE ALL EXTREMITIE, NO INCREASED WEAKENSS NOTED, SPEACH CLEAR. SHE STATES HER SWALLOWING DIFFICULTY AND THROAT SWELLING ARE STARTING TO IMPROVE. DR. HERRERA AWARE OF PATIENTS NEW COMPLAINT OF LEFT CHEST PAIN AND LEFT NECK PAIN.
--- NOTE | 2019-04-07 08:30 | NUR ---
PT HAS RASH TO BILATERAL HANDS AND ARMS, FACE FLUSHED, NOT NEW FINDINGS. PT HAS A BANDAID TO FOREHEAD, SHE STATES THERE IS NO WOUND THERE HOWEVER SHE HAD A SKIN GRAFT FROM THERE DONE "A WHILE BACK, THEY TOLD ME TO KEEP IT COVERED WITH VASOLINE AND A BANDAID" PT STATES SHE WILL MANAGE CHANING THE BANDAID TODAY HERSELF. PT STATES SHE STILL FEELS "OFF" SHE IS WORRIED THAT SHE WILL PASS OUT LIKE SHE HAS DONE IN THE PAST. REQUESTED FOR PATIENT TO FURTHUR IDENTIFY THE SIGNS/SYMPTOMS THAT SHE IS FEELING RIGHT NOW THAT WOULD LEAD HER TO BELIEVE THAT SHE WILL PASS OUT AGAIN, THERE IS NO DIRECT ANSWER FROM PATIENT. 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
[2019-04-07 12:00] VITALS: BP 120/53
--- NOTE | 2019-04-07 14:08 | NUR ---
PT RESTING QUIETLY IN BED. STATES NO DIFFICULTY SWALLOWING OR SHORTNESS OF BREATH AT THIS TIME. PT STATES HAS CONTINUED TO HAVE SOME CHEST PAIN OFF/ON ALL DAY HOWEVER, DESCRIBES IT NOT MUCH/INTENSE IT WAS FIRST THING THIS MORNING. PT MADE AWARE OF TESTING ORDERED FOR TOMORROW. NO QUESTIONS AT THIS TIME. NO NEEDS STATED.
[2019-04-07 16:00] VITALS: BP 103/43
[2019-04-07 20:00] VITALS: BP 110/52
[2019-04-08] VITALS: BP 128/52
[2019-04-08 06:44] LABS: BASO % 0.8 % (0.0-1.0); EOS # 0.1 10*3/uL (0.0-0.4); EOS % 2.8 % (1.0-4.0); HEMATOCRIT 29.3 % (37.0-47.0); HEMOGLOBIN 9.7 g/dl (12.0-16.0); LYMPH # 0.8 10*3/uL (1.3-4.4); LYMPH % 15.2 % (27.0-41.0); MEAN CELL VOLUME 89.6 fl (81.0-99.0); MEAN CORPUSCULAR HGB 29.7 pg (27.0-31.0); MEAN CORPUSCULAR HGB CONC 33.1 g/dl (33.0-37.0); MEAN PLATELET VOLUME 9.2 fl (9.6-12.3); MONO # 0.4 10*3/uL (0.1-1.0); MONO % 8.3 % (3.0-9.0); NEUT # 3.6 10*3/uL (2.3-7.9); NEUT % 72.5 % (47.0-73.0); PLATELET COUNT AUTOMATED 118 10*3/uL (130-400); RED BLOOD COUNT 3.27 10*6/uL (4.10-5.10); RED CELL DISTRI WIDTH 15.2 % (0-14.5); WHITE BLOOD COUNT 4.9 10*3/uL (4.8-10.8)
[2019-04-08 06:59] LABS: CREATININE 1.31 mg/dL (0.55-1.02); POTASSIUM 4.6 mmol/L (3.5-5.1)
--- NOTE | 2019-04-08 09:00 | NUR ---
Tenter Feeder in to talk to patient. Patient states lives at home with . There are few steps in the home. 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 she stated if she needed anything she will contact one of them, case management will follow. SHANNON SINGH
--- NOTE | 2019-04-08 11:08 | NUR ---
OFF FLOOR FOR STRESS TEST.
--- NOTE | 2019-04-08 12:00 | NUR ---
INFORMED SIGNED CONSENT OBTAINED FOR LEXISCAN STRESS TEST WITH DR SIMPSON. RESTING EKG NSR WITH PAC'S HR 60 BP 120/68. POX 91% LUNGS CLEAR. PT COMPLETED ONE MINUTE OF A LEXISCAN PROTOCOL WITH PT RECEIVING LEXISCAN 0.4MG IV OVER 10 SECONDS. FREQUENT PAC'S NOTED. PT C/O A FUNNY TINGLING FEELING WITH INJECTION. LAST RECOVERY HR OF 81 BP 122/64. PT IN STABLE CONDITION, AWAITING NUCLEAR IMAGES.
--- NOTE | 2019-04-08 14:59 | NUR ---
DR. QUINTEROS IN TO SEE PT.
[2019-04-08] MEDS ORDERED: IMDUR SA30 MG PO (15:01)
--- NOTE | 2019-04-08 15:46 | NUR ---
Discharge instructions reviewed with patient/family. Patient receptive and verbalizes understanding. Follow-up care arranged. Written instructions given to patient/family. JIE GILL
== END 2019-04-08 15:46 | disposition home or self-care (01) | DRG 305 ==
LOC: ED 08:33 → 5E 13:05 → EDHOLD 13:05 → 5E 13:33
PROVIDERS: Emergency Medicine; Family Medicine; Internal Medicine; ADMIT Internal Medicine
PROC: 3E073KZ Introduction of Other Diagnostic Substance into Coronary Artery, Percutaneous Approach (ICD-10-PCS; principal; 2019-04-08)
PROC: 4A02XM4 Measurement of Cardiac Total Activity, External Approach (ICD-10-PCS; principal; 2019-04-08)
DX: I16.1 Hypertensive emergency (principal); T78.2XXA Anaphylactic shock, unspecified, initial encounter; I13.0 Hypertensive heart and chronic kidney disease with heart failure and stage 1 through stage 4 chronic kidney disease, or unspecified chronic kidney disease; E11.65 Type 2 diabetes mellitus with hyperglycemia; C43.9 Malignant melanoma of skin, unspecified; N18.3 Chronic kidney disease, stage 3 (moderate); E11.22 Type 2 diabetes mellitus with diabetic chronic kidney disease; R13.10 Dysphagia, unspecified; R91.1 Solitary pulmonary nodule; D64.9 Anemia, unspecified; M35.00 Sjogren syndrome, unspecified; M48.02 Spinal stenosis, cervical region; I50.9 Heart failure, unspecified; I25.10 Atherosclerotic heart disease of native coronary artery without angina pectoris; D72.819 Decreased white blood cell count, unspecified; D69.6 Thrombocytopenia, unspecified; M19.90 Unspecified osteoarthritis, unspecified site; R07.9 Chest pain, unspecified; M32.9 Systemic lupus erythematosus, unspecified; R21 Rash and other nonspecific skin eruption; K21.9 Gastro-esophageal reflux disease without esophagitis; E04.1 Nontoxic single thyroid nodule; K44.9 Diaphragmatic hernia without obstruction or gangrene; Z95.1 Presence of aortocoronary bypass graft; I25.2 Old myocardial infarction; Z86.73 Personal history of transient ischemic attack (TIA), and cerebral infarction without residual deficits; Z85.3 Personal history of malignant neoplasm of breast; Z87.442 Personal history of urinary calculi; Z85.21 Personal history of malignant neoplasm of larynx; Z90.49 Acquired absence of other specified parts of digestive tract; Z90.710 Acquired absence of both cervix and uterus; Z90.722 Acquired absence of ovaries, bilateral; Z98.1 Arthrodesis status; Z82.49 Family history of ischemic heart disease and other diseases of the circulatory system; Z83.3 Family history of diabetes mellitus; Z88.2 Allergy status to sulfonamides; Z88.1 Allergy status to other antibiotic agents; Z88.5 Allergy status to narcotic agent; Z88.6 Allergy status to analgesic agent; Z88.8 Allergy status to other drugs, medicaments and biological substances; Z79.899 Other long term (current) drug therapy; Z79.02 Long term (current) use of antithrombotics/antiplatelets; Z79.890 Hormone replacement therapy; Z95.5 Presence of coronary angioplasty implant and graft

== ENCOUNTER → 2019-05-03 | Outpatient (CLI) | payer MEDICARE, OTHER ==
[~2019-05-03] MED LIST changes: +FERROUS SULFAT325 MG PO; +IMDUR SA30 MG PO; +VITAMIN D35000 UNIT PO
== END | disposition home or self-care (01) ==
LOC: US 13:27
DX: E04.1 Nontoxic single thyroid nodule (principal); R91.8 Other nonspecific abnormal finding of lung field

== ENCOUNTER → 2019-06-11 | Outpatient (CLI) | payer MEDICARE, OTHER | END | disposition home or self-care (01) | LOC: LAB 11:51 | PROVIDERS: Physician Assistant | DX: E78.2 Mixed hyperlipidemia (principal); E11.9 Type 2 diabetes mellitus without complications; K21.9 Gastro-esophageal reflux disease without esophagitis; L30.9 Dermatitis, unspecified; I25.84 Coronary atherosclerosis due to calcified coronary lesion; I10 Essential (primary) hypertension ==

== ENCOUNTER 2019-09-30 22:12 | Emergency (ER) | payer MEDICARE, OTHER ==
[~2019-09-30] VITALS: Ht 154.9 cm; Wt 56.2 kg
[2019-09-30 23:10] LABS: BASO % 0.3 % (0.0-1.0); EOS # 0.1 10*3/uL (0.0-0.4); EOS % 2.6 % (1.0-4.0); HEMATOCRIT 25.8 % (37.0-47.0); HEMOGLOBIN 8.5 g/dl (12.0-16.0); LYMPH % 32.7 % (27.0-41.0); MEAN CELL VOLUME 89.3 fl (81.0-99.0); MEAN CORPUSCULAR HGB 29.4 pg (27.0-31.0); MEAN CORPUSCULAR HGB CONC 32.9 g/dl (33.0-37.0); MONO # 0.2 10*3/uL (0.1-1.0); MONO % 7.7 % (3.0-9.0); NEUT # 1.8 10*3/uL (2.3-7.9); NEUT % 56.4 % (47.0-73.0); PLATELET COUNT AUTOMATED 97 10*3/uL (130-400); RED BLOOD COUNT 2.89 10*6/uL (4.10-5.10); RED CELL DISTRI WIDTH 16.2 % (0-14.5); WHITE BLOOD COUNT 3.1 10*3/uL (4.8-10.8)
[2019-09-30 23:27] LABS: ALBUMIN 3.7 gm/dl (3.1-4.5); ALKALINE PHOSPHATASE 90 U/L (45-117); BUN 30 mg/dl (7-24); CHLORIDE 106 mmol/L (98-107); CREATININE 1.31 mg/dL (0.55-1.02); POTASSIUM 4.1 mmol/L (3.5-5.1); SGOT/AST 16 IU/L (3-35); SGPT/ALT 22 U/L (12-78); SODIUM 139 mmol/L (136-145); TOTAL PROTEIN 6.7 gm/dL (6.4-8.2)
[2019-09-30 23:31] LABS: TROPONIN I < 0.015 ng/ml (<0.045)
[2019-10-01 00:47] VITALS: BP 133/48
== END 2019-10-01 00:58 | disposition short-term general hospital (02) ==
LOC: ED 22:12
PROVIDERS: Emergency Medicine
DX: I21.3 ST elevation (STEMI) myocardial infarction of unspecified site (principal); J20.9 Acute bronchitis, unspecified; E11.22 Type 2 diabetes mellitus with diabetic chronic kidney disease; I13.0 Hypertensive heart and chronic kidney disease with heart failure and stage 1 through stage 4 chronic kidney disease, or unspecified chronic kidney disease; N18.3 Chronic kidney disease, stage 3 (moderate); I50.9 Heart failure, unspecified; I25.10 Atherosclerotic heart disease of native coronary artery without angina pectoris; K21.9 Gastro-esophageal reflux disease without esophagitis; I25.2 Old myocardial infarction; Z88.2 Allergy status to sulfonamides; Z88.1 Allergy status to other antibiotic agents; Z88.5 Allergy status to narcotic agent; Z88.8 Allergy status to other drugs, medicaments and biological substances; Z91.018 Allergy to other foods; Z88.6 Allergy status to analgesic agent; Z79.899 Other long term (current) drug therapy; Z87.442 Personal history of urinary calculi; Z90.49 Acquired absence of other specified parts of digestive tract; Z90.710 Acquired absence of both cervix and uterus; Z96.22 Myringotomy tube(s) status

== ENCOUNTER 2019-11-13 12:54 | Emergency (ER) | payer MEDICARE, OTHER ==
[~2019-11-13] VITALS: Ht 152.4 cm; Wt 57.6 kg
[2019-11-13] MEDS ORDERED: AMOXICILLIN875 MG PO (15:20)
[2019-11-13] MEDS ORDERED: FLONASE ALLERG9.9 ML NAS (15:20)
[2019-11-13 16:00] VITALS: BP 121/72
== END 2019-11-13 15:46 | disposition home or self-care (01) ==
LOC: ED 12:54
DX: J01.90 Acute sinusitis, unspecified (principal); I11.0 Hypertensive heart disease with heart failure; I50.9 Heart failure, unspecified; I25.10 Atherosclerotic heart disease of native coronary artery without angina pectoris; E11.9 Type 2 diabetes mellitus without complications; K21.9 Gastro-esophageal reflux disease without esophagitis; Z88.2 Allergy status to sulfonamides; Z88.8 Allergy status to other drugs, medicaments and biological substances; Z79.899 Other long term (current) drug therapy

== ENCOUNTER → 2020-05-22 | Outpatient (CLI) | payer MEDICARE, OTHER ==
[~2020-05-22] MED LIST changes: +AMOXICILLIN875 MG PO; +FLONASE ALLERG9.9 ML NAS
== END | disposition home or self-care (01) ==
LOC: MRI 12:53
PROVIDERS: ATTEND Physician Assistant
DX: I67.82 Cerebral ischemia (principal); I63.9 Cerebral infarction, unspecified; I10 Essential (primary) hypertension; I73.9 Peripheral vascular disease, unspecified; I63.49 Cerebral infarction due to embolism of other cerebral artery; J39.2 Other diseases of pharynx

== ENCOUNTER 2021-01-29 12:54 | Emergency (ER) | payer MEDICARE, OTHER ==
[~2021-01-29] VITALS: Ht 167.6 cm; Wt 64.1 kg
[2021-01-29 14:17] LABS: ALBUMIN 3.8 gm/dl (3.1-4.5); ALKALINE PHOSPHATASE 111 U/L (45-117); BUN 25 mg/dl (7-24); CHLORIDE 104 mmol/L (98-107); CREATININE 1.35 mg/dL (0.55-1.02); POTASSIUM 4.4 mmol/L (3.5-5.1); SGOT/AST 16 IU/L (3-35); SGPT/ALT 26 U/L (12-78); SODIUM 136 mmol/L (136-145); TOTAL PROTEIN 6.5 gm/dL (6.4-8.2)
[2021-01-29 14:18] LABS: ACETAMINOPHEN (TYLENOL) < 5.0 ug/ml (10-30); ETHYL ALCOHOL < 3.0 mg/dl (<3); TROPONIN I < 0.015 ng/ml (<0.045)
[2021-01-29 14:23] LABS: BASO % 0.5 % (0.0-1.0); EOS # 0.1 10*3/uL (0.0-0.4); EOS % 1.3 % (1.0-4.0); HEMATOCRIT 34.2 % (37.0-47.0); LYMPH # 0.7 10*3/uL (1.3-4.4); LYMPH % 12.1 % (27.0-41.0); MEAN CELL VOLUME 88.8 fl (81.0-99.0); MEAN CORPUSCULAR HGB 28.8 pg (27.0-31.0); MEAN CORPUSCULAR HGB CONC 32.5 g/dl (33.0-37.0); MEAN PLATELET VOLUME 9.9 fl (9.6-12.3); MONO # 0.3 10*3/uL (0.1-1.0); MONO % 4.9 % (3.0-9.0); NEUT # 4.8 10*3/uL (2.3-7.9); PLATELET COUNT AUTOMATED 129 10*3/uL (130-400); RED BLOOD COUNT 3.85 10*6/uL (4.10-5.10); RED CELL DISTRI WIDTH 16.6 % (0-14.5); WHITE BLOOD COUNT 5.9 10*3/uL (4.8-10.8)
[2021-01-29 14:41] LABS: BILIRUBIN Negative (Negative); BLOOD Negative (Negative); CLARITY Clear (Clear); COLOR Yellow (Yellow); GLUCOSE Negative (Negative); KETONE Negative (Negative); LEUKO ESTERASE Trace (Negative); NITRITE Negative (Negative); PH 6.5 (4.5-8.0); SPECIFIC GRAVITY 1.015 (1.001-1.030)
[2021-01-29 14:51] LABS: URINE AMPHETAMINES < 1000 (1000ng/ml); URINE BARBITURATES < 200 (200ng/ml); URINE BENZODIAZEPINES < 200 (200ng/ml); URINE CANNABINOIDS (THC) < 50 (50ng/ml); URINE COCAINE < 300 (300ng/ml); URINE METHADONE < 300 (300ng/ml); URINE OPIATES < 300 (300ng/ml)
[2021-01-29 14:52] LABS: URINE PHENCYCLIDINE < 25 (25ng/ml)
[2021-01-29 15:06] LABS: BACTERIA TRACE; COARSE GRANULAR CAST 0-2
[2021-01-29 18:16] VITALS: BP 136/00
== END 2021-01-29 22:03 ==
LOC: ED 12:54
PROVIDERS: Physician Assistant
DX: F29 Unspecified psychosis not due to a substance or known physiological condition (principal); Z20.822 Contact with and (suspected) exposure to COVID-19; Z88.2 Allergy status to sulfonamides; Z88.8 Allergy status to other drugs, medicaments and biological substances; Z79.899 Other long term (current) drug therapy; Z90.49 Acquired absence of other specified parts of digestive tract; Z98.890 Other specified postprocedural states; Z95.818 Presence of other cardiac implants and grafts

== ENCOUNTER 2021-02-20 18:01 | Emergency (ER) | payer MEDICARE, OTHER ==
[~2021-02-20] VITALS: Wt 61.7 kg
[2021-02-20 18:34] LABS: BASO % 0.8 % (0.0-1.0); EOS # 0.1 10*3/uL (0.0-0.4); EOS % 2.3 % (1.0-4.0); HEMATOCRIT 30.6 % (37.0-47.0); LYMPH # 0.6 10*3/uL (1.3-4.4); LYMPH % 10.3 % (27.0-41.0); MEAN CELL VOLUME 90.3 fl (81.0-99.0); MEAN CORPUSCULAR HGB 29.5 pg (27.0-31.0); MEAN CORPUSCULAR HGB CONC 32.7 g/dl (33.0-37.0); MEAN PLATELET VOLUME 9.2 fl (9.6-12.3); MONO # 0.4 10*3/uL (0.1-1.0); MONO % 6.6 % (3.0-9.0); NEUT # 4.2 10*3/uL (2.3-7.9); NEUT % 79.4 % (47.0-73.0); PLATELET COUNT AUTOMATED 112 10*3/uL (130-400); RED BLOOD COUNT 3.39 10*6/uL (4.10-5.10); RED CELL DISTRI WIDTH 18.2 % (0-14.5); WHITE BLOOD COUNT 5.3 10*3/uL (4.8-10.8)
[2021-02-20 18:49] LABS: ALBUMIN 3.7 gm/dl (3.1-4.5); ALKALINE PHOSPHATASE 101 U/L (45-117); BUN 19 mg/dl (7-24); CHLORIDE 104 mmol/L (98-107); CREATININE 1.28 mg/dL (0.55-1.02); POTASSIUM 3.6 mmol/L (3.5-5.1); SGOT/AST 22 IU/L (3-35); SGPT/ALT 27 U/L (12-78); SODIUM 138 mmol/L (136-145); TOTAL PROTEIN 6.6 gm/dL (6.4-8.2); TROPONIN I 0.018 ng/ml (<0.045)
[2021-02-20 18:53] LABS: ACETAMINOPHEN (TYLENOL) < 5.0 ug/ml (10-30); ETHYL ALCOHOL < 3.0 mg/dl (<3)
[2021-02-20 20:21] LABS: BILIRUBIN Negative (Negative); BLOOD Negative (Negative); CLARITY Clear (Clear); COLOR Yellow (Yellow); GLUCOSE Negative (Negative); KETONE Trace (Negative); LEUKO ESTERASE Negative (Negative); NITRITE Negative (Negative)
[2021-02-20 20:28] LABS: BACTERIA TRACE; HYALINE CAST 0-2; RBC 0-2 rbc/hpf (0-2); WBC 0-2 wbc/hpf (0-5)
[2021-02-20 20:29] LABS: URINE AMPHETAMINES < 1000 (1000ng/ml); URINE BARBITURATES < 200 (200ng/ml); URINE BENZODIAZEPINES < 200 (200ng/ml); URINE CANNABINOIDS (THC) < 50 (50ng/ml); URINE COCAINE < 300 (300ng/ml); URINE METHADONE < 300 (300ng/ml); URINE OPIATES < 300 (300ng/ml)
[2021-02-20 20:30] LABS: URINE PHENCYCLIDINE < 25 (25ng/ml)
[2021-02-20 22:34] VITALS: BP 123/99
[2021-02-21] MEDS ORDERED: Imdur SA60 MG PO (09:40)
[2021-02-21] MEDS ORDERED: ELIQUIS2.5 M1 PO (09:44)
[2021-02-21] MEDS ORDERED: LIPITOR40 MG PO (09:48)
[2021-02-21] MEDS ORDERED: RISPERDAL0.5 MG PO (09:54)
[2021-02-21] MEDS ORDERED: ZOLOFT50 MG PO (09:55)
[2021-02-21] MEDS ORDERED: MOTION SICKNESS25 M2 PO (10:00)
[2021-02-21] MEDS ORDERED: ALLERGY RELIE15.8 ML NAS (10:52)
[2021-02-21] MEDS ORDERED: NATURE'S BLEND F1 MG PO (10:59)
[2021-02-21] MEDS ORDERED: PREVAGAN PO (11:14)
[2021-02-21] MEDS ORDERED: VITAMIN B1250 MCG PO (11:15)
[2021-02-22] MEDS ORDERED: NAMENDA-5 PO (11:54)
[2021-02-22] MEDS ORDERED: REMERON15 M2 PO (11:55)
== END 2021-02-20 23:55 | disposition home or self-care (01) ==
LOC: ED 18:01
PROVIDERS: Emergency Medicine; Physician Assistant
DX: F29 Unspecified psychosis not due to a substance or known physiological condition (principal); Z20.822 Contact with and (suspected) exposure to COVID-19; Z88.2 Allergy status to sulfonamides; Z88.8 Allergy status to other drugs, medicaments and biological substances; Z88.5 Allergy status to narcotic agent; Z79.899 Other long term (current) drug therapy; Z79.82 Long term (current) use of aspirin; Z98.890 Other specified postprocedural states; Z90.711 Acquired absence of uterus with remaining cervical stump

== ENCOUNTER 2021-02-22 12:46 | Inpatient (IN) | payer MEDICARE, OTHER ==
[~2021-02-22] VITALS: Ht 154.9 cm; Wt 60.9 kg
[2021-02-22 12:30] VITALS: BP 107/62
[~2021-02-22 12:46] MED LIST changes: +ALLERGY RELIE15.8 ML NAS; +ELIQUIS2.5 M1 PO; +Imdur SA60 MG PO; +LIPITOR40 MG PO; +MOTION SICKNESS25 M2 PO; +NAMENDA-5 PO; +NATURE'S BLEND F1 MG PO; +PREVAGAN PO; +REMERON15 M2 PO; +RISPERDAL0.5 MG PO; +VITAMIN B1250 MCG PO; +ZOLOFT50 MG PO
[2021-02-22 16:00] VITALS: BP 158/67
[2021-02-22 20:00] VITALS: BP 129/58
[2021-02-23] VITALS: BP 126/68
[2021-02-23 06:35] LABS: BASO % 1.2 % (0.0-1.0); EOS # 0.2 10*3/uL (0.0-0.4); HEMATOCRIT 27.9 % (37.0-47.0); LYMPH # 0.7 10*3/uL (1.3-4.4); LYMPH % 21.5 % (27.0-41.0); MEAN CELL VOLUME 91.5 fl (81.0-99.0); MEAN CORPUSCULAR HGB 29.2 pg (27.0-31.0); MEAN CORPUSCULAR HGB CONC 31.9 g/dl (33.0-37.0); MEAN PLATELET VOLUME 9.4 fl (9.6-12.3); MONO # 0.3 10*3/uL (0.1-1.0); MONO % 8.7 % (3.0-9.0); NEUT % 63.3 % (47.0-73.0); PLATELET COUNT AUTOMATED 109 10*3/uL (130-400); RED BLOOD COUNT 3.05 10*6/uL (4.10-5.10); RED CELL DISTRI WIDTH 18.4 % (0-14.5); WHITE BLOOD COUNT 3.2 10*3/uL (4.8-10.8)
[2021-02-23 06:47] LABS: ACT PARTIAL THROMBO TIME 27.1 SECONDS (20.0-32.1)
[2021-02-23 07:04] LABS: ALBUMIN 3.2 gm/dl (3.1-4.5); CREATININE 1.22 mg/dL (0.55-1.02); POTASSIUM 4.1 mmol/L (3.5-5.1); TOTAL PROTEIN 5.8 gm/dL (6.4-8.2)
[2021-02-23 08:05] VITALS: BP 125/64
[2021-02-23 12:22] VITALS: BP 113/58
[2021-02-23 16:16] VITALS: BP 156/67
[2021-02-23 20:00] VITALS: BP 124/77
[2021-02-24] VITALS: BP 133/48
[2021-02-24 08:00] VITALS: BP 136/43
[2021-02-24 12:00] VITALS: BP 140/46
[2021-02-24] MEDS ORDERED: IMDUR SA30 MG PO (12:03)
[2021-02-24] MEDS ORDERED: PLAVIX75 M1 PO (12:03)
[2021-02-24] MEDS ORDERED: CLOPIDOGREL75 MG PO (12:04)
== END 2021-02-24 14:31 | disposition home health service (06) | DRG 281 ==
LOC: 5E 12:46
PROVIDERS: Internal Medicine; ADMIT Internal Medicine; ATTEND Internal Medicine
PROC: 4A02XM4 Measurement of Cardiac Total Activity, External Approach (ICD-10-PCS; principal; 2021-02-23)
PROC: 3E073KZ Introduction of Other Diagnostic Substance into Coronary Artery, Percutaneous Approach (ICD-10-PCS; 2021-02-23)
DX: I21.4 Non-ST elevation (NSTEMI) myocardial infarction (principal); I50.32 Chronic diastolic (congestive) heart failure; F23 Brief psychotic disorder; F33.2 Major depressive disorder, recurrent severe without psychotic features; I13.0 Hypertensive heart and chronic kidney disease with heart failure and stage 1 through stage 4 chronic kidney disease, or unspecified chronic kidney disease; D61.818 Other pancytopenia; I25.10 Atherosclerotic heart disease of native coronary artery without angina pectoris; E11.65 Type 2 diabetes mellitus with hyperglycemia; M32.8 Other forms of systemic lupus erythematosus; K21.9 Gastro-esophageal reflux disease without esophagitis; M35.00 Sjogren syndrome, unspecified; N18.32 Chronic kidney disease, stage 3b; D69.6 Thrombocytopenia, unspecified; I48.0 Paroxysmal atrial fibrillation; N18.9 Chronic kidney disease, unspecified; E11.22 Type 2 diabetes mellitus with diabetic chronic kidney disease; E78.5 Hyperlipidemia, unspecified; F22 Delusional disorders; I49.5 Sick sinus syndrome; Z88.2 Allergy status to sulfonamides; Z88.5 Allergy status to narcotic agent; Z88.1 Allergy status to other antibiotic agents; Z86.73 Personal history of transient ischemic attack (TIA), and cerebral infarction without residual deficits; Z88.8 Allergy status to other drugs, medicaments and biological substances; Z79.899 Other long term (current) drug therapy; Z68.26 Body mass index [BMI] 26.0-26.9, adult

== ENCOUNTER 2022-05-10 17:50 | Emergency (ER) | payer MEDICARE, OTHER ==
[~2022-05-10] VITALS: Ht 152.4 cm; Wt 59.0 kg
[~2022-05-10 17:50] MED LIST changes: +CLOPIDOGREL75 MG PO; +ELIQUIS5 M1 PO; +LEVOXYL112 MCG PO; +ZYRTEC10 M2 PO
[2022-05-10 17:55] VITALS: BP 167/69
== END 2022-05-10 19:45 | disposition left against medical advice (07) ==
LOC: ED 17:50
DX: J02.9 Acute pharyngitis, unspecified (principal); Z53.21 Procedure and treatment not carried out due to patient leaving prior to being seen by health care provider

== ENCOUNTER → 2022-06-07 | Outpatient (CLI) | payer MEDICARE, OTHER | END | disposition home or self-care (01) | LOC: RESCLI 01:55 | PROVIDERS: ATTEND Internal Medicine | DX: I10 Essential (primary) hypertension (principal); E78.2 Mixed hyperlipidemia; E03.9 Hypothyroidism, unspecified; I25.118 Atherosclerotic heart disease of native coronary artery with other forms of angina pectoris; D63.8 Anemia in other chronic diseases classified elsewhere; Z95.0 Presence of cardiac pacemaker; I73.9 Peripheral vascular disease, unspecified; J30.9 Allergic rhinitis, unspecified; Z90.49 Acquired absence of other specified parts of digestive tract; Z90.710 Acquired absence of both cervix and uterus; Z98.890 Other specified postprocedural states; Z88.8 Allergy status to other drugs, medicaments and biological substances; Z79.899 Other long term (current) drug therapy ==

== ENCOUNTER → 2022-08-08 | Outpatient (CLI) | payer MEDICARE, OTHER | END | disposition home or self-care (01) | LOC: RESCLI 02:05 | PROVIDERS: ATTEND Internal Medicine | DX: I12.9 Hypertensive chronic kidney disease with stage 1 through stage 4 chronic kidney disease, or unspecified chronic kidney disease (principal); N18.30 Chronic kidney disease, stage 3 unspecified; I25.118 Atherosclerotic heart disease of native coronary artery with other forms of angina pectoris; J30.9 Allergic rhinitis, unspecified; E78.2 Mixed hyperlipidemia; E03.9 Hypothyroidism, unspecified; C50.919 Malignant neoplasm of unspecified site of unspecified female breast; E78.00 Pure hypercholesterolemia, unspecified; I63.9 Cerebral infarction, unspecified; Z90.710 Acquired absence of both cervix and uterus; Z90.49 Acquired absence of other specified parts of digestive tract; Z98.890 Other specified postprocedural states; Z82.49 Family history of ischemic heart disease and other diseases of the circulatory system; Z88.1 Allergy status to other antibiotic agents; Z88.5 Allergy status to narcotic agent; Z88.9 Allergy status to unspecified drugs, medicaments and biological substances; Z79.82 Long term (current) use of aspirin; Z79.899 Other long term (current) drug therapy ==

== ENCOUNTER → 2022-08-24 | Outpatient (CLI) | payer MEDICARE, OTHER ==
[~2022-08-24] MED LIST changes: +AMIODARONE HYD200 MG PO; +ASPIRIN CHILDRE81 MG PO; +METOPROLOL SUCC25 M2 PO
== END ==
LOC: WOUNDCARE 07:51
PROVIDERS: ATTEND Student in an Organized Health Care Education/Training Program
DX: Z53.21 Procedure and treatment not carried out due to patient leaving prior to being seen by health care provider (principal)

== ENCOUNTER → 2022-10-10 | Outpatient (CLI) | payer MEDICARE, OTHER | END | disposition home or self-care (01) | LOC: RESCLI 00:14 | PROVIDERS: ATTEND Internal Medicine | DX: I25.118 Atherosclerotic heart disease of native coronary artery with other forms of angina pectoris (principal); J30.9 Allergic rhinitis, unspecified; E78.2 Mixed hyperlipidemia; I10 Essential (primary) hypertension; E63.9 Nutritional deficiency, unspecified; I48.91 Unspecified atrial fibrillation; E03.9 Hypothyroidism, unspecified; Z12.39 Encounter for other screening for malignant neoplasm of breast; Z88.1 Allergy status to other antibiotic agents; Z88.5 Allergy status to narcotic agent; Z88.8 Allergy status to other drugs, medicaments and biological substances; Z98.890 Other specified postprocedural states; Z82.49 Family history of ischemic heart disease and other diseases of the circulatory system; Z90.710 Acquired absence of both cervix and uterus; Z79.82 Long term (current) use of aspirin; Z79.01 Long term (current) use of anticoagulants; Z79.899 Other long term (current) drug therapy ==

== ENCOUNTER 2022-11-05 20:46 | Emergency (ER) | payer MEDICARE, OTHER ==
[~2022-11-05] VITALS: Ht 160 cm; Wt 65.8 kg
[2022-11-05 20:51] VITALS: BP 181/76
[2022-11-05 21:14] LABS: MEAN CELL VOLUME 94.9 fl (81.0-99.0); MEAN CORPUSCULAR HGB 30.4 pg (27.0-31.0); MEAN CORPUSCULAR HGB CONC 32.1 g/dl (33.0-37.0); MEAN PLATELET VOLUME 9.3 fl (9.6-12.3); NUCLEATED RED BLOOD CELL 0.5 % (0.0-0.0); PLATELET COUNT AUTOMATED 153 10*3/uL (130-400); RED BLOOD COUNT 2.53 10*6/uL (4.10-5.10); RED CELL DISTRI WIDTH 18.6 % (0-14.5); WHITE BLOOD COUNT 3.7 10*3/uL (4.8-10.8)
[2022-11-05 21:15] LABS: MANUAL DIFF REFLEX YES
[2022-11-05 21:32] LABS: POTASSIUM 4.3 mmol/L (3.4-5.1); TOTAL PROTEIN 6.1 gm/dL (6.0-8.0)
[2022-11-05 21:36] LABS: ATYPICAL LYMPHS 2 % (0-0); BASOPHILS 1 % (0-1); TOTAL CELLS COUNTED 100 #CELLS
[2022-11-05 21:37] LABS: PLATELET SUFFICIENCY NORMAL (NORMAL); POLYCHROMASIA SLIGHT
[2022-11-05 21:38] LABS: SPHEROCYTES FEW
== END 2022-11-05 23:35 | disposition left against medical advice (07) ==
LOC: ED 20:46
PROVIDERS: Nurse Practitioner Family
DX: U07.1 COVID-19 (principal); B34.9 Viral infection, unspecified; I10 Essential (primary) hypertension; I25.10 Atherosclerotic heart disease of native coronary artery without angina pectoris; K21.9 Gastro-esophageal reflux disease without esophagitis; Z88.2 Allergy status to sulfonamides; Z88.5 Allergy status to narcotic agent; Z88.1 Allergy status to other antibiotic agents; Z88.8 Allergy status to other drugs, medicaments and biological substances; Z98.890 Other specified postprocedural states; Z90.49 Acquired absence of other specified parts of digestive tract; Z90.710 Acquired absence of both cervix and uterus; Z90.89 Acquired absence of other organs

== ENCOUNTER → 2022-11-21 | Outpatient (CLI) | payer MEDICARE, OTHER ==
[2022-11-21 12:11] LABS: BASO % 0.9 % (0.0-1.0); EOS # 0.1 10*3/uL (0.0-0.4); EOS % 2.5 % (1.0-4.0); HEMATOCRIT 29.6 % (37.0-47.0); LYMPH # 0.7 10*3/uL (1.3-4.4); LYMPH % 15.7 % (27.0-41.0); MEAN CELL VOLUME 98.3 fl (81.0-99.0); MEAN CORPUSCULAR HGB 30.6 pg (27.0-31.0); MEAN CORPUSCULAR HGB CONC 31.1 g/dl (33.0-37.0); MEAN PLATELET VOLUME 8.8 fl (9.6-12.3); MONO # 0.3 10*3/uL (0.1-1.0); MONO % 6.8 % (3.0-9.0); NEUT # 3.2 10*3/uL (2.3-7.9); NEUT % 73.2 % (47.0-73.0); PLATELET COUNT AUTOMATED 140 10*3/uL (130-400); RED BLOOD COUNT 3.01 10*6/uL (4.10-5.10); RED CELL DISTRI WIDTH 19.6 % (0-14.5); WHITE BLOOD COUNT 4.4 10*3/uL (4.8-10.8)
[2022-11-21 12:38] LABS: POTASSIUM 4.1 mmol/L (3.4-5.1); TOTAL PROTEIN 6.6 gm/dL (6.0-8.0)
== END | disposition home or self-care (01) ==
LOC: LAB 01:23 → RESCLI 01:23
PROVIDERS: Student in an Organized Health Care Education/Training Program; ATTEND Internal Medicine
DX: D64.9 Anemia, unspecified (principal); E11.9 Type 2 diabetes mellitus without complications; L93.0 Discoid lupus erythematosus; E03.9 Hypothyroidism, unspecified; I48.91 Unspecified atrial fibrillation; E78.2 Mixed hyperlipidemia; R91.1 Solitary pulmonary nodule; J30.9 Allergic rhinitis, unspecified; E63.9 Nutritional deficiency, unspecified; I10 Essential (primary) hypertension; Z98.890 Other specified postprocedural states; Z88.2 Allergy status to sulfonamides; Z88.8 Allergy status to other drugs, medicaments and biological substances; Z82.49 Family history of ischemic heart disease and other diseases of the circulatory system; Z90.49 Acquired absence of other specified parts of digestive tract; Z79.82 Long term (current) use of aspirin; Z79.01 Long term (current) use of anticoagulants; Z79.899 Other long term (current) drug therapy

== ENCOUNTER 2022-12-19 08:29 | Emergency (ER) | payer MEDICARE, OTHER ==
[~2022-12-19] VITALS: Ht 157.4 cm; Wt 56.7 kg
[2022-12-19 08:55] VITALS: BP 121/71
[2022-12-19] MEDS ORDERED: ELIMITE 5%60 GM T (09:16)
== END 2022-12-19 09:23 | disposition home or self-care (01) ==
LOC: ED 08:29
DX: B86 Scabies (principal); I25.10 Atherosclerotic heart disease of native coronary artery without angina pectoris; I11.0 Hypertensive heart disease with heart failure; I50.9 Heart failure, unspecified; K21.9 Gastro-esophageal reflux disease without esophagitis; Z87.442 Personal history of urinary calculi; D64.9 Anemia, unspecified; Z86.718 Personal history of other venous thrombosis and embolism; Z88.2 Allergy status to sulfonamides; Z88.1 Allergy status to other antibiotic agents; Z88.5 Allergy status to narcotic agent; Z88.6 Allergy status to analgesic agent; Z88.8 Allergy status to other drugs, medicaments and biological substances; Z90.49 Acquired absence of other specified parts of digestive tract; Z90.710 Acquired absence of both cervix and uterus; Z98.890 Other specified postprocedural states; Z90.89 Acquired absence of other organs; Z90.11 Acquired absence of right breast and nipple

== ENCOUNTER → 2023-01-23 | Outpatient (CLI) | payer MEDICARE ==
[~2023-01-23] MED LIST changes: +ELIMITE 5%60 GM T
[2023-01-23 11:16] LABS: BILIRUBIN Negative (Negative); BLOOD 3+ (Negative); CLARITY Turbid (Clear); COLOR Yellow (Yellow); GLUCOSE Negative (Negative); KETONE Negative (Negative); LEUKO ESTERASE 3+ (Negative); NITRITE Negative (Negative); SPECIFIC GRAVITY 1.015 (1.001-1.030)
[2023-01-23 12:02] LABS: BACTERIA 4+; RBC TNTC rbc/hpf (0-2); WBC TNTC wbc/hpf (0-5)
== END | disposition home or self-care (01) ==
LOC: RESCLI 01:17
PROVIDERS: Student in an Organized Health Care Education/Training Program; ATTEND Internal Medicine
DX: N63.0 Unspecified lump in unspecified breast (principal); R91.8 Other nonspecific abnormal finding of lung field; M25.512 Pain in left shoulder; R31.9 Hematuria, unspecified; I89.1 Lymphangitis; I48.91 Unspecified atrial fibrillation; Z88.5 Allergy status to narcotic agent; Z88.8 Allergy status to other drugs, medicaments and biological substances; Z88.2 Allergy status to sulfonamides; Z98.890 Other specified postprocedural states; Z82.49 Family history of ischemic heart disease and other diseases of the circulatory system; Z79.899 Other long term (current) drug therapy

== ENCOUNTER → 2023-01-26 | Outpatient (CLI) | payer MEDICARE | END | disposition home or self-care (01) | LOC: MAMMO 01:07 → LAB 01:07 → MAMMO 13:30 | PROVIDERS: Student in an Organized Health Care Education/Training Program; ATTEND Emergency Medicine | DX: M19.012 Primary osteoarthritis, left shoulder (principal); N63.0 Unspecified lump in unspecified breast; R91.8 Other nonspecific abnormal finding of lung field; R92.1 Mammographic calcification found on diagnostic imaging of breast ==

== ENCOUNTER → 2023-03-09 | Outpatient (CLI) | payer MEDICARE | END | disposition home or self-care (01) | LOC: RESCLI 04:52 | PROVIDERS: ATTEND Internal Medicine | DX: B86 Scabies (principal); I48.91 Unspecified atrial fibrillation; J30.9 Allergic rhinitis, unspecified; E78.2 Mixed hyperlipidemia; E63.9 Nutritional deficiency, unspecified; E55.9 Vitamin D deficiency, unspecified; I10 Essential (primary) hypertension; I25.118 Atherosclerotic heart disease of native coronary artery with other forms of angina pectoris; L30.9 Dermatitis, unspecified; E03.9 Hypothyroidism, unspecified; Z88.5 Allergy status to narcotic agent; Z88.1 Allergy status to other antibiotic agents; Z98.890 Other specified postprocedural states; Z88.8 Allergy status to other drugs, medicaments and biological substances; Z79.899 Other long term (current) drug therapy ==

== ENCOUNTER → 2023-05-11 | Outpatient (CLI) | payer MEDICARE | END | disposition home or self-care (01) | LOC: RESCLI 09:58 | PROVIDERS: ATTEND Student in an Organized Health Care Education/Training Program | DX: I48.91 Unspecified atrial fibrillation (principal); B86 Scabies; J30.9 Allergic rhinitis, unspecified; E78.2 Mixed hyperlipidemia; E55.9 Vitamin D deficiency, unspecified; I25.118 Atherosclerotic heart disease of native coronary artery with other forms of angina pectoris; I10 Essential (primary) hypertension; E03.9 Hypothyroidism, unspecified; Z95.0 Presence of cardiac pacemaker; Z51.5 Encounter for palliative care; Z88.1 Allergy status to other antibiotic agents; Z88.5 Allergy status to narcotic agent; Z88.8 Allergy status to other drugs, medicaments and biological substances; Z82.49 Family history of ischemic heart disease and other diseases of the circulatory system; Z98.890 Other specified postprocedural states; Z79.899 Other long term (current) drug therapy ==

== ENCOUNTER → 2023-09-27 | Outpatient (CLI) | payer MEDICARE | END | disposition home or self-care (01) | LOC: RESCLI 01:29 | PROVIDERS: ATTEND Student in an Organized Health Care Education/Training Program | DX: I44.4 Left anterior fascicular block (principal); I12.9 Hypertensive chronic kidney disease with stage 1 through stage 4 chronic kidney disease, or unspecified chronic kidney disease; N18.30 Chronic kidney disease, stage 3 unspecified; R07.9 Chest pain, unspecified; I48.91 Unspecified atrial fibrillation; J30.9 Allergic rhinitis, unspecified; E63.9 Nutritional deficiency, unspecified; E55.9 Vitamin D deficiency, unspecified; I25.118 Atherosclerotic heart disease of native coronary artery with other forms of angina pectoris; E03.9 Hypothyroidism, unspecified; E78.2 Mixed hyperlipidemia; Z86.16 Personal history of COVID-19; Z90.710 Acquired absence of both cervix and uterus; Z90.49 Acquired absence of other specified parts of digestive tract; Z98.890 Other specified postprocedural states; Z82.49 Family history of ischemic heart disease and other diseases of the circulatory system; Z88.8 Allergy status to other drugs, medicaments and biological substances; Z88.5 Allergy status to narcotic agent; Z88.1 Allergy status to other antibiotic agents; Z79.899 Other long term (current) drug therapy ==

== ENCOUNTER 2023-12-18 22:34 | Emergency (ER) | payer MEDICARE ==
[~2023-12-18] VITALS: Ht 154.9 cm; Wt 55.8 kg
[2023-12-18 22:39] VITALS: BP 201/87
[2023-12-18] MEDS ORDERED: EPINEPHrine Hydrochloride 1 MG/ML AMP ONE (23:34)
[2023-12-18 23:50] LABS: BASO # 0.1 10*3/uL (0.0-0.1); BASO % 0.8 % (0.0-1.0); EOS # 0.2 10*3/uL (0.0-0.4); HEMATOCRIT 28.2 % (37.0-47.0); LYMPH # 2.9 10*3/uL (1.3-4.4); LYMPH % 37.2 % (27.0-41.0); MEAN CELL VOLUME 95.9 fl (81.0-99.0); MEAN CORPUSCULAR HGB 30.3 pg (27.0-31.0); MEAN CORPUSCULAR HGB CONC 31.6 g/dl (33.0-37.0); MEAN PLATELET VOLUME 8.4 fl (9.6-12.3); MONO # 0.5 10*3/uL (0.1-1.0); MONO % 6.4 % (3.0-9.0); NEUT # 4.1 10*3/uL (2.3-7.9); NEUT % 52.9 % (47.0-73.0); PLATELET COUNT AUTOMATED 164 10*3/uL (130-400); RED BLOOD COUNT 2.94 10*6/uL (4.10-5.10); RED CELL DISTRI WIDTH 17.5 % (0-14.5); WHITE BLOOD COUNT 7.7 10*3/uL (4.8-10.8)
[2023-12-19] MEDS ORDERED: EPINEPHrine Hydrochloride 1 MG/ML AMP ONE (00:20)
[2023-12-19] MEDS ORDERED: TRANEXAMIC ACID 1,000 MG/10 ML VIAL T ONE (01:05)
== END 2023-12-19 01:53 | disposition home or self-care (01) ==
LOC: ED 22:34
PROVIDERS: Student in an Organized Health Care Education/Training Program
DX: L76.21 Postprocedural hemorrhage of skin and subcutaneous tissue following a dermatologic procedure (principal); I48.91 Unspecified atrial fibrillation; I25.2 Old myocardial infarction; I25.10 Atherosclerotic heart disease of native coronary artery without angina pectoris; E11.22 Type 2 diabetes mellitus with diabetic chronic kidney disease; I13.0 Hypertensive heart and chronic kidney disease with heart failure and stage 1 through stage 4 chronic kidney disease, or unspecified chronic kidney disease; N18.30 Chronic kidney disease, stage 3 unspecified; I50.9 Heart failure, unspecified; Z85.3 Personal history of malignant neoplasm of breast; Z88.2 Allergy status to sulfonamides; Z88.1 Allergy status to other antibiotic agents; Z88.5 Allergy status to narcotic agent; Z88.8 Allergy status to other drugs, medicaments and biological substances; Z79.899 Other long term (current) drug therapy; Z79.82 Long term (current) use of aspirin; Z86.73 Personal history of transient ischemic attack (TIA), and cerebral infarction without residual deficits; Z87.442 Personal history of urinary calculi; Z90.711 Acquired absence of uterus with remaining cervical stump; Z98.61 Coronary angioplasty status; Z96.22 Myringotomy tube(s) status; Z90.89 Acquired absence of other organs; Y83.8 Other surgical procedures as the cause of abnormal reaction of the patient, or of later complication, without mention of misadventure at the time of the procedure

== ENCOUNTER → 2023-12-28 | Outpatient (CLI) | payer MEDICARE | END | disposition home or self-care (01) | LOC: RESCLI 00:46 | PROVIDERS: ATTEND Internal Medicine | DX: L93.0 Discoid lupus erythematosus (principal); J30.9 Allergic rhinitis, unspecified; E55.9 Vitamin D deficiency, unspecified; I25.10 Atherosclerotic heart disease of native coronary artery without angina pectoris; E78.2 Mixed hyperlipidemia; E03.9 Hypothyroidism, unspecified; I10 Essential (primary) hypertension; I48.91 Unspecified atrial fibrillation; E63.9 Nutritional deficiency, unspecified; Z79.899 Other long term (current) drug therapy ==

== ENCOUNTER → 2024-03-28 | Outpatient (CLI) | payer MEDICARE ==
[2024-03-28 10:54] LABS: BASO % 0.7 % (0.0-1.0); EOS # 0.1 10*3/uL (0.0-0.4); EOS % 2.6 % (1.0-4.0); HEMATOCRIT 28.3 % (37.0-47.0); LYMPH # 0.6 10*3/uL (1.3-4.4); LYMPH % 14.2 % (27.0-41.0); MEAN CELL VOLUME 97.3 fl (81.0-99.0); MEAN CORPUSCULAR HGB 30.6 pg (27.0-31.0); MEAN CORPUSCULAR HGB CONC 31.4 g/dl (33.0-37.0); MONO # 0.3 10*3/uL (0.1-1.0); MONO % 6.1 % (3.0-9.0); NEUT # 3.2 10*3/uL (2.3-7.9); NEUT % 75.9 % (47.0-73.0); PLATELET COUNT AUTOMATED 112 10*3/uL (130-400); RED BLOOD COUNT 2.91 10*6/uL (4.10-5.10); WHITE BLOOD COUNT 4.2 10*3/uL (4.8-10.8)
[2024-03-28 11:22] LABS: POTASSIUM 4.3 mmol/L (3.4-5.1); TOTAL PROTEIN 6.2 gm/dL (6.0-8.0)
== END | disposition home or self-care (01) ==
LOC: RESCLI 01:44
PROVIDERS: Student in an Organized Health Care Education/Training Program; ATTEND Internal Medicine
DX: E03.9 Hypothyroidism, unspecified (principal); R51.9 Headache, unspecified; J30.9 Allergic rhinitis, unspecified; E63.9 Nutritional deficiency, unspecified; E55.9 Vitamin D deficiency, unspecified; L93.0 Discoid lupus erythematosus; I25.10 Atherosclerotic heart disease of native coronary artery without angina pectoris; E78.5 Hyperlipidemia, unspecified; I10 Essential (primary) hypertension; I48.91 Unspecified atrial fibrillation; E78.2 Mixed hyperlipidemia; Z79.899 Other long term (current) drug therapy; Z86.16 Personal history of COVID-19; Z98.890 Other specified postprocedural states; Z82.49 Family history of ischemic heart disease and other diseases of the circulatory system; Z88.8 Allergy status to other drugs, medicaments and biological substances

== ENCOUNTER 2024-04-27 21:29 | Inpatient (IN) | payer MEDICARE ==
[~2024-04-27] VITALS: Ht 152.4 cm; Wt 54.0 kg
[2024-04-27 21:51] VITALS: BP 177/47
[2024-04-27 22:33] LABS: BASO % 0.5 % (0.0-1.0); EOS % 0.5 % (1.0-4.0); HEMATOCRIT 26.5 % (37.0-47.0); LYMPH # 0.7 10*3/uL (1.3-4.4); LYMPH % 12.2 % (27.0-41.0); MEAN CELL VOLUME 90.8 fl (81.0-99.0); MEAN CORPUSCULAR HGB 30.5 pg (27.0-31.0); MEAN CORPUSCULAR HGB CONC 33.6 g/dl (33.0-37.0); MEAN PLATELET VOLUME 9.2 fl (9.6-12.3); MONO # 0.5 10*3/uL (0.1-1.0); MONO % 7.7 % (3.0-9.0); NEUT # 4.8 10*3/uL (2.3-7.9); NEUT % 78.6 % (47.0-73.0); PLATELET COUNT AUTOMATED 121 10*3/uL (130-400); RED BLOOD COUNT 2.92 10*6/uL (4.10-5.10); RED CELL DISTRI WIDTH 17.7 % (0-14.5); WHITE BLOOD COUNT 6.1 10*3/uL (4.8-10.8)
[2024-04-27 22:40] LABS: ACT PARTIAL THROMBO TIME 26.8 SECONDS (20.0-32.1)
[2024-04-27 22:50] LABS: POTASSIUM 4.6 mmol/L (3.4-5.1); TOTAL PROTEIN 6.3 gm/dL (6.0-8.0)
[2024-04-27] MEDS ORDERED: LORazepam 2 MG/ML VIAL IV ONE (23:05)
[2024-04-27] MEDS ORDERED: DEXAMETHASONE SODIUM PHOSPHA IV ONE (23:15)
[2024-04-27] MEDS ORDERED: Magnesium Hydroxide 30 ML UDC PO PRN (23:30)
[2024-04-27] MEDS ORDERED: BISACODYL 10 MG SUPP R PRN (23:30)
[2024-04-27] MEDS ORDERED: BISACODYL 5 MG TAB PO PRN (23:30)
[2024-04-27] MEDS ORDERED: IBUPROFEN 400 MG TAB PO ONE (23:40)
[2024-04-27] MEDS ORDERED: ACETAMINOPHEN 650 MG SUPP R PRN (23:45)
[2024-04-27] MEDS ORDERED: ACETAMINOPHEN 325 MG TAB PO PRN (23:45)
[2024-04-28] MEDS ORDERED: Dexamethasone Sodium Phospha 20 MG/5 ML VIAL ONE (00:07)
[2024-04-28 00:10] VITALS: BP 155/44
[2024-04-28] MEDS ORDERED: LORazepam 2 MG/ML VIAL ONE (00:12)
[2024-04-28] MEDS ORDERED: FLUTICASONE-SA1 EAC3 INH (00:28)
[2024-04-28] MEDS ORDERED: ALLEGRA ALLERG180 M2 PO (00:29)
[2024-04-28] MEDS ORDERED: VITAMIN D3 COM1 EACH PO (00:30)
[2024-04-28] MEDS ORDERED: ONE DAILY WITH1 EACH PO (00:32)
[2024-04-28] MEDS ORDERED: NITROGLYCERIN0.4 MG SL (00:33)
[2024-04-28] MEDS ORDERED: Albuterol Sulf/Ipratropium 3 ML VIAL NEB PRN (00:45)
[2024-04-28] MEDS ORDERED: Albuterol Sulfate 2.5 MG/3 ML VIAL NEB PRN (01:30)
[2024-04-28 06:09] LABS: BASO % 0.3 % (0.0-1.0); HEMATOCRIT 26.9 % (37.0-47.0); LYMPH # 0.5 10*3/uL (1.3-4.4); LYMPH % 11.4 % (27.0-41.0); MEAN CORPUSCULAR HGB 29.7 pg (27.0-31.0); MEAN CORPUSCULAR HGB CONC 31.6 g/dl (33.0-37.0); MEAN PLATELET VOLUME 9.7 fl (9.6-12.3); MONO # 0.1 10*3/uL (0.1-1.0); MONO % 1.8 % (3.0-9.0); NEUT # 3.4 10*3/uL (2.3-7.9); NEUT % 85.7 % (47.0-73.0); PLATELET COUNT AUTOMATED 102 10*3/uL (130-400); RED BLOOD COUNT 2.86 10*6/uL (4.10-5.10); RED CELL DISTRI WIDTH 17.6 % (0-14.5)
[2024-04-28 06:28] LABS: TOTAL PROTEIN 6.1 gm/dL (6.0-8.0)
[2024-04-28 07:02] LABS: MEAN CELL VOLUME 94.1 fl (81.0-99.0)
[2024-04-28 08:00] VITALS: BP 178/53
[2024-04-28] MEDS ORDERED: REMDESIVIR 200 MG in SODIUM CHLORIDE 0.9% 210 ML IV ONE (09:00)
[2024-04-28] MEDS ORDERED: METOPROLOL SUCCINATE XR 25 MG TAB PO SCH (10:00)
[2024-04-28] MEDS ORDERED: Amiodarone Hydrochloride 200 MG TAB PO SCH (10:00)
[2024-04-28] MEDS ORDERED: FUROSEMIDE 20 MG TAB PO SCH (10:00)
[2024-04-28] MEDS ORDERED: APIXABAN 5 MG TAB PO SCH (10:00)
[2024-04-28] MEDS ORDERED: ISOSORBIDE MONONITRATE 30 MG TAB PO SCH (10:00)
[2024-04-28] MEDS ORDERED: ASPIRIN, CHEWABLE 81 MG TAB PO SCH (10:00)
[2024-04-28 12:00] VITALS: BP 129/45
[2024-04-28] MEDS ORDERED: AZITHROMYCIN 250 ML IV SCH (14:00)
[2024-04-28] MEDS ORDERED: Meropenem 1 GM in SODIUM CHLORIDE 0.9% 100 ML IV SCH (14:00)
[2024-04-28] MEDS ORDERED: Ceftriaxone Sodium 1 GM in SYRINGE INFUSION 10 ML IV SCH (15:00)
[2024-04-28 16:00] VITALS: BP 137/51
[2024-04-28] MEDS ORDERED: Acetaminophen/Oxycodone 5 MG/325 MG TABLET PO PRN (19:00)
[2024-04-28 20:00] VITALS: BP 149/90
[2024-04-28] MEDS ORDERED: GUAIFENESIN 600 MG TAB ER PO SCH (22:00)
[2024-04-28] MEDS ORDERED: ATORVASTATIN CALCIUM 40 MG TABLET PO SCH (22:00)
[2024-04-29] VITALS: BP 138/82
[2024-04-29] MEDS ORDERED: Levothyroxine Sodium 112 MCG TAB PO SCH (06:00)
[2024-04-29 06:38] LABS: BASO % 0.2 % (0.0-1.0); EOS % 0.2 % (1.0-4.0); HEMATOCRIT 26.7 % (37.0-47.0); LYMPH # 0.6 10*3/uL (1.3-4.4); LYMPH % 12.8 % (27.0-41.0); MEAN CELL VOLUME 92.7 fl (81.0-99.0); MEAN CORPUSCULAR HGB 29.5 pg (27.0-31.0); MEAN CORPUSCULAR HGB CONC 31.8 g/dl (33.0-37.0); MEAN PLATELET VOLUME 9.9 fl (9.6-12.3); MONO # 0.3 10*3/uL (0.1-1.0); MONO % 6.4 % (3.0-9.0); NEUT # 3.6 10*3/uL (2.3-7.9); NEUT % 79.7 % (47.0-73.0); PLATELET COUNT AUTOMATED 116 10*3/uL (130-400); RED BLOOD COUNT 2.88 10*6/uL (4.10-5.10); RED CELL DISTRI WIDTH 17.1 % (0-14.5); WHITE BLOOD COUNT 4.5 10*3/uL (4.8-10.8)
[2024-04-29 06:58] LABS: POTASSIUM 4.4 mmol/L (3.4-5.1)
[2024-04-29 08:00] VITALS: BP 141/63
[2024-04-29] MEDS ORDERED: REMDESIVIR 100 MG in SODIUM CHLORIDE 0.9% 230 ML IV SCH (09:00)
[2024-04-29 12:00] VITALS: BP 135/56
[2024-04-29 16:00] VITALS: BP 146/67
[2024-04-29 20:00] VITALS: BP 186/74
[2024-04-29 21:09] VITALS: BP 153/72
[2024-04-30] VITALS: BP 132/47; BP 186/74
[2024-04-30] MEDS ORDERED: BENZONATATE 100 MG CAP PO PRN (01:00)
[2024-04-30 06:19] LABS: BASO % 0.2 % (0.0-1.0); EOS % 0.7 % (1.0-4.0); HEMATOCRIT 26.7 % (37.0-47.0); LYMPH # 0.7 10*3/uL (1.3-4.4); LYMPH % 16.2 % (27.0-41.0); MEAN CELL VOLUME 92.7 fl (81.0-99.0); MEAN CORPUSCULAR HGB 29.2 pg (27.0-31.0); MEAN CORPUSCULAR HGB CONC 31.5 g/dl (33.0-37.0); MEAN PLATELET VOLUME 9.4 fl (9.6-12.3); MONO # 0.3 10*3/uL (0.1-1.0); MONO % 7.2 % (3.0-9.0); NEUT # 3.3 10*3/uL (2.3-7.9); NEUT % 75.2 % (47.0-73.0); PLATELET COUNT AUTOMATED 102 10*3/uL (130-400); RED BLOOD COUNT 2.88 10*6/uL (4.10-5.10); RED CELL DISTRI WIDTH 17.3 % (0-14.5); WHITE BLOOD COUNT 4.3 10*3/uL (4.8-10.8)
[2024-04-30 06:57] LABS: POTASSIUM 4.4 mmol/L (3.4-5.1)
[2024-04-30] MEDS ORDERED: SODIUM CHLORIDE 0.9% 1,000 ML IV ONE (07:40)
[2024-04-30 08:00] VITALS: BP 130/40
[2024-04-30 12:00] VITALS: BP 120/47
[2024-04-30 16:00] VITALS: BP 130/40
[2024-04-30 20:00] VITALS: BP 152/47
[2024-04-30] MEDS ORDERED: Benzocaine/Menthol 1 LOZ LOZENGE PO PRN (20:50)
[2024-04-30] MEDS ORDERED: METOPROLOL SUCCINATE XR 25 MG TAB PO SCH (22:00)
[2024-05-01] VITALS: BP 169/54
[2024-05-01] MEDS ORDERED: hydrOXYzine pamoate 25 MG CAP PO ONE (03:40)
[2024-05-01] MEDS ORDERED: LORazepam 2 MG/ML VIAL IV ONE ×2 (03:55→12:20)
[2024-05-01 06:05] LABS: POTASSIUM 3.1 mmol/L (3.4-5.1)
[2024-05-01 06:26] LABS: BASO % 0.3 % (0.0-1.0); EOS # 0.1 10*3/uL (0.0-0.4); EOS % 1.7 % (1.0-4.0); HEMATOCRIT 25.3 % (37.0-47.0); LYMPH # 0.7 10*3/uL (1.3-4.4); LYMPH % 19.4 % (27.0-41.0); MEAN CORPUSCULAR HGB 29.8 pg (27.0-31.0); MEAN CORPUSCULAR HGB CONC 32.4 g/dl (33.0-37.0); MEAN PLATELET VOLUME 9.8 fl (9.6-12.3); MONO # 0.4 10*3/uL (0.1-1.0); MONO % 9.7 % (3.0-9.0); NEUT # 2.5 10*3/uL (2.3-7.9); NEUT % 68.1 % (47.0-73.0); PLATELET COUNT AUTOMATED 118 10*3/uL (130-400); RED BLOOD COUNT 2.75 10*6/uL (4.10-5.10); RED CELL DISTRI WIDTH 17.1 % (0-14.5); WHITE BLOOD COUNT 3.6 10*3/uL (4.8-10.8)
[2024-05-01 08:00] VITALS: BP 148/50
[2024-05-01] MEDS ORDERED: POTASSIUM CHLORIDE IN WATER 100 ML IV SCH (08:00)
[2024-05-01] MEDS ORDERED: POTASSIUM CHLORIDE 20 MEQ TAB PO ONE ×2 (09:55)
[2024-05-01] MEDS ORDERED: Amiodarone Hydrochloride 200 MG TAB PO SCH (10:00)
[2024-05-01 12:00] VITALS: BP 184/58
[2024-05-01] MEDS ORDERED: Water, Sterile 10 ML VIAL ONE (12:40)
[2024-05-01] MEDS ORDERED: Ziprasidone Mesylate 20 MG VIAL IM ONE (14:45)
[2024-05-01] MEDS ORDERED: Water, Sterile 10 ML VIAL IM ONE (14:55)
[2024-05-01] MEDS ORDERED: Haloperidol Lactate 5 MG/ML AMP ONE (14:59)
[2024-05-01 20:00] VITALS: BP 140/77
[2024-05-02] VITALS: BP 146/71
[2024-05-02 07:55] LABS: BASO % 0.4 % (0.0-1.0); EOS # 0.1 10*3/uL (0.0-0.4); EOS % 1.9 % (1.0-4.0); HEMATOCRIT 30.3 % (37.0-47.0); LYMPH # 1.1 10*3/uL (1.3-4.4); MEAN CELL VOLUME 91.3 fl (81.0-99.0); MEAN CORPUSCULAR HGB 28.9 pg (27.0-31.0); MEAN CORPUSCULAR HGB CONC 31.7 g/dl (33.0-37.0); MEAN PLATELET VOLUME 8.9 fl (9.6-12.3); MONO # 0.3 10*3/uL (0.1-1.0); MONO % 6.7 % (3.0-9.0); NEUT # 3.1 10*3/uL (2.3-7.9); NEUT % 67.4 % (47.0-73.0); PLATELET COUNT AUTOMATED 135 10*3/uL (130-400); RED BLOOD COUNT 3.32 10*6/uL (4.10-5.10); RED CELL DISTRI WIDTH 16.7 % (0-14.5); WHITE BLOOD COUNT 4.7 10*3/uL (4.8-10.8)
[2024-05-02 08:00] VITALS: BP 164/53
[2024-05-02 08:14] LABS: POTASSIUM 3.7 mmol/L (3.4-5.1)
[2024-05-02 12:00] VITALS: BP 114/50
[2024-05-02 16:00] VITALS: BP 100/40
[2024-05-02 20:00] VITALS: BP 125/47
[2024-05-03] VITALS: BP 110/46; BP 113/36
[2024-05-03 06:11] LABS: BASO % 0.4 % (0.0-1.0); EOS # 0.2 10*3/uL (0.0-0.4); HEMATOCRIT 26.2 % (37.0-47.0); LYMPH # 0.8 10*3/uL (1.3-4.4); LYMPH % 15.7 % (27.0-41.0); MEAN CELL VOLUME 89.4 fl (81.0-99.0); MEAN CORPUSCULAR HGB 29.4 pg (27.0-31.0); MEAN CORPUSCULAR HGB CONC 32.8 g/dl (33.0-37.0); MEAN PLATELET VOLUME 9.1 fl (9.6-12.3); MONO # 0.4 10*3/uL (0.1-1.0); MONO % 7.1 % (3.0-9.0); NEUT # 3.9 10*3/uL (2.3-7.9); NEUT % 72.7 % (47.0-73.0); PLATELET COUNT AUTOMATED 151 10*3/uL (130-400); RED BLOOD COUNT 2.93 10*6/uL (4.10-5.10); WHITE BLOOD COUNT 5.4 10*3/uL (4.8-10.8)
[2024-05-03 06:53] LABS: POTASSIUM 3.3 mmol/L (3.4-5.1)
[2024-05-03 08:00] VITALS: BP 129/49
[2024-05-03] MEDS ORDERED: POTASSIUM CHLORIDE 20 MEQ TAB PO ONE (09:15)
[2024-05-03] MEDS ORDERED: Rivastigmine Tartrate 4.6 MG/24 HR PATCH T SCH (09:26)
[2024-05-03 12:00] VITALS: BP 143/68
[2024-05-03] MEDS ORDERED: LORazepam 0.5 MG TAB PO PRN (14:15)
[2024-05-03 16:00] VITALS: BP 162/57
[2024-05-03 20:00] VITALS: BP 207/66
[2024-05-03] MEDS ORDERED: Memantine Hydrochloride 5 MG TAB PO SCH (21:00)
[2024-05-04] VITALS: BP 185/57
[2024-05-04 07:07] LABS: BASO % 0.3 % (0.0-1.0); EOS # 0.4 10*3/uL (0.0-0.4); EOS % 6.8 % (1.0-4.0); HEMATOCRIT 30.6 % (37.0-47.0); LYMPH % 17.3 % (27.0-41.0); MEAN CELL VOLUME 91.9 fl (81.0-99.0); MEAN CORPUSCULAR HGB 28.5 pg (27.0-31.0); MEAN PLATELET VOLUME 8.8 fl (9.6-12.3); MONO # 0.5 10*3/uL (0.1-1.0); NEUT # 3.8 10*3/uL (2.3-7.9); NEUT % 65.7 % (47.0-73.0); PLATELET COUNT AUTOMATED 161 10*3/uL (130-400); RED BLOOD COUNT 3.33 10*6/uL (4.10-5.10); RED CELL DISTRI WIDTH 16.7 % (0-14.5); WHITE BLOOD COUNT 5.7 10*3/uL (4.8-10.8)
[2024-05-04 07:33] LABS: POTASSIUM 3.6 mmol/L (3.4-5.1)
[2024-05-04 08:00] VITALS: BP 180/76
[2024-05-04 12:00] VITALS: BP 127/96
[2024-05-04 16:00] VITALS: BP 104/83
[2024-05-04 20:00] VITALS: BP 168/65
[2024-05-04] MEDS ORDERED: Memantine Hydrochloride 5 MG TAB PO SCH (21:00)
[2024-05-05] VITALS: BP 168/65
[2024-05-05 08:00] VITALS: BP 166/59
[2024-05-05] MEDS ORDERED: Rivastigmine Tartrate 9.5 MG/24 HR PATCH T SCH (09:00)
[2024-05-05 12:00] VITALS: BP 153/48
[2024-05-05 20:00] VITALS: BP 159/48
[2024-05-06 08:00] VITALS: BP 160/52
[2024-05-06 12:00] VITALS: BP 146/66
[2024-05-06 15:57] VITALS: BP 145/61
[2024-05-06 20:00] VITALS: BP 153/67
[2024-05-07] VITALS: BP 152/49
[2024-05-07 08:45] VITALS: BP 205/53
[2024-05-07 10:00] VITALS: BP 154/60
[2024-05-07 12:00] VITALS: BP 164/63
[2024-05-07] MEDS ORDERED: Ziprasidone Mesylate 20 MG VIAL IM ONE (15:05)
[2024-05-07] MEDS ORDERED: Water, Sterile 10 ML VIAL ONE (15:22)
[2024-05-07 20:00] VITALS: BP 191/62
[2024-05-08] VITALS: BP 187/63
[2024-05-08 08:34] VITALS: BP 183/59
[2024-05-08 12:00] VITALS: BP 153/61
[2024-05-08] MEDS ORDERED: BENZONATATE100 M1 PO (12:59)
[2024-05-08] MEDS ORDERED: METOPROLOL SUCC25 M2 PO (12:59)
[2024-05-08] MEDS ORDERED: RIVASTIGMINE1 EAC1 T (12:59)
[2024-05-08] MEDS ORDERED: MUCUS RELIEF600 MG PO (12:59)
[2024-05-08] MEDS ORDERED: NAMENDA-5 PO (12:59)
[2024-05-08] MEDS ORDERED: AMIODARONE HYD200 MG PO (12:59)
[2024-05-08] MEDS ORDERED: Ziprasidone Mesylate 20 MG VIAL IM ONE (14:40)
== END 2024-05-08 15:12 | DRG 178 ==
LOC: ED 21:29 → 4E 23:12 → EDHOLD 23:12 → 4E 23:46
PROVIDERS: Internal Medicine; Student in an Organized Health Care Education/Training Program; ADMIT Internal Medicine; ATTEND Internal Medicine
PROC: XW033E5 Introduction of Remdesivir Anti-infective into Peripheral Vein, Percutaneous Approach, New Technology Group 5 (ICD-10-PCS; principal; 2024-04-28)
DX: U07.1 COVID-19 (principal); E87.1 Hypo-osmolality and hyponatremia; I50.32 Chronic diastolic (congestive) heart failure; I13.0 Hypertensive heart and chronic kidney disease with heart failure and stage 1 through stage 4 chronic kidney disease, or unspecified chronic kidney disease; F23 Brief psychotic disorder; J15.69 Pneumonia due to other Gram-negative bacteria; D69.6 Thrombocytopenia, unspecified; D64.9 Anemia, unspecified; M32.9 Systemic lupus erythematosus, unspecified; M15.0 Primary generalized (osteo)arthritis; F03.90 Unspecified dementia, unspecified severity, without behavioral disturbance, psychotic disturbance, mood disturbance, and anxiety; R79.82 Elevated C-reactive protein (CRP); R50.81 Fever presenting with conditions classified elsewhere; I48.91 Unspecified atrial fibrillation; K21.9 Gastro-esophageal reflux disease without esophagitis; M35.00 Sjogren syndrome, unspecified; N18.32 Chronic kidney disease, stage 3b; I25.10 Atherosclerotic heart disease of native coronary artery without angina pectoris; R41.0 Disorientation, unspecified; E87.6 Hypokalemia; Z78.9 Other specified health status; Z88.8 Allergy status to other drugs, medicaments and biological substances; Z79.82 Long term (current) use of aspirin; Z79.899 Other long term (current) drug therapy; Z90.49 Acquired absence of other specified parts of digestive tract; Z95.1 Presence of aortocoronary bypass graft; Z90.710 Acquired absence of both cervix and uterus; Z83.3 Family history of diabetes mellitus; Z82.49 Family history of ischemic heart disease and other diseases of the circulatory system; Z86.73 Personal history of transient ischemic attack (TIA), and cerebral infarction without residual deficits; Z85.3 Personal history of malignant neoplasm of breast; Z85.21 Personal history of malignant neoplasm of larynx